=== PATIENT | male | born 1940 | race Caucasian/White ===

== ENCOUNTER 2023-01-31 08:06 | Outpatient (RCR) | payer MEDICARE, OTHER, SELFPAY | END 2023-03-28 10:14 | disposition home or self-care (01) | LOC: HO.WCC 08:06 | PROVIDERS: Visit Provider Physician Assistant | DX: Z09 Encounter for follow-up examination after completed treatment for conditions other than malignant neoplasm (principal); I87.302 Chronic venous hypertension (idiopathic) without complications of left lower extremity; G60.8 Other hereditary and idiopathic neuropathies; I73.9 Peripheral vascular disease, unspecified; R73.03 Prediabetes; F17.210 Nicotine dependence, cigarettes, uncomplicated; J44.9 Chronic obstructive pulmonary disease, unspecified; Z87.2 Personal history of diseases of the skin and subcutaneous tissue | CPT/HCPCS: 11042; 97597; 99212; 99213 ==

== ENCOUNTER 2023-12-19 07:59 | Emergency (ER) | payer MEDICARE, OTHER, SELFPAY ==
--- NOTE | ~2023-12-19 | CT_ITS ---
EXAMINATION: CT ABDOMEN AND PELVIS WITHOUT CONTRAST CLINICAL INFORMATION: Left lower quadrant pain COMPARISON: None available. TECHNIQUE: Multidetector volumetric imaging was performed from the superior aspect of the liver through the pubic symphysis. Sagittal and coronal reformatted images were obtained on the technologist's workstation. This CT examination was performed using dose optimization techniques as appropriate, variously including the following: *Automated exposure control *Adjustment of mA and/or kV according to patient size (this includes techniques or standardized protocols for targeted exams where dose is matched to indication/reason for exam; i.e. extremities or head) *Use of iterative reconstruction technique DLP: 989 mGy-cm FINDINGS: LUNG BASES: Bibasilar atelectasis. No pneumothorax. No large pleural effusion. LIVER, GALLBLADDER, AND BILIARY TREE: The liver is normal in size, shape, and attenuation. No focal hepatic lesion or biliary ductal dilatation is present. The gallbladder is unremarkable with no evidence of radiopaque gallstones, gallbladder wall thickening, or obvious pericholecystic inflammatory changes. PANCREAS: Mild atrophy of the visualized pancreas. SPLEEN: Unremarkable. ADRENAL GLANDS: Unremarkable. KIDNEYS AND URETERS: Mild left-sided hydroureteronephrosis secondary to a 6 mm calculus at the level of the left mid ureter with periureteral and perinephric stranding. Additional calculi noted in the left kidney measuring up to 1.0 cm. Right-sided nephrolithiasis measuring up to 7 mm without hydronephrosis. 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 GASTROINTESTINAL TRACT: Small hiatal hernia. Slight colonic diverticulosis without acute diverticulitis. The small and large bowel are unremarkable. The appendix is unremarkable. ABDOMINAL WALL: Diastases rectae with laxity of the anterior abdominal wall. LYMPH NODES: No enlarged lymph nodes per size criteria. VASCULAR: Abdominal aorta is nonaneurysmal. PELVIC VISCERA: Prostate measures 4.1 cm with coarse calcifications within its body. Osteopenia. Suggestion of superior endplate compression deformity of L4, chronicity indeterminate. Correlation with physical exam. Multilevel degenerative changes of the thoracolumbar and lumbosacral spine. Degenerative arthropathy of the bilateral femoral acetabular and sacroiliac joints. Sclerotic focus along the right pubic symphysis nonspecific though potentially representing a bone island. OSSEOUS STRUCTURES: Unremarkable. CT/CT abdomen pelvis wo IV con IMPRESSION: 1. Mild left-sided hydroureteronephrosis secondary to a 6 mm calculus at the level of the left mid ureter with periureteral and perinephric stranding. Additional calculi noted in the left kidney measuring up to 1.0 cm. Right-sided nephrolithiasis measuring up to 7 mm without hydronephrosis. 2. 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 3. Small hiatal hernia. Slight colonic diverticulosis without acute diverticulitis. 4. Osteopenia. Suggestion of superior endplate compression deformity of L4, chronicity indeterminate. Correlation with physical exam.
[2023-12-19 08:05] VITALS: BP 95/74; PULSE 78; RESP 16; TEMP 37; O2SAT 98; BMI 37.6
--- NOTE | 2023-12-19 08:08 | ECG_ITS ---
Test Reason : shortness of breath Blood Pressure : / mmHG Vent. Rate : 086 BPM Atrial Rate : 000 BPM P-R Int : 000 ms QRS Dur : 128 ms QT Int : 396 ms P-R-T Axes : 000 -54 064 degrees QTc Int : 473 ms Atrial fibrillation Right bundle branch block Left anterior fascicular block Bifascicular block Abnormal ECG When compared with ECG of 13-FEB-2011 05:24, Atrial fibrillation has replaced Sinus rhythm Vent. rate has increased BY 40 BPM RBBB present now Referred By: Generic ED Physician Electronically Signed By:Deni Lagunas
[2023-12-19 08:31] LABS: MANUAL DIFF FLAG NO
[2023-12-19 08:33] LABS: Appearance Urine Clear; Color Urine Yellow; Glucose Urine UA Negative (Negative); Leukocyte Esterase Urine Negative (Negative); Nitrite Urine Negative (Negative); Specific Gravity - Urine 1.025 (1.005-1.025); UMIC TRIGGER UACC YES; Urine Blood Moderate (2+) (Negative); Urine Ketones 15 mg/dL (Negative); Urine Protein Negative (Neg-Trace)
[2023-12-19 08:37] LABS: Basophils Percent Auto 0.3 % (0-2); Eosinophils Percent Auto 0.1 % (0-4); Hematocrit 50.7 % (42.0-52.0); Hemoglobin 17.4 g/dl (14.0-18.0); Imm Gran Abs Auto 0.06 X10*3/uL (0.00-0.03); Imm Gran Pct Auto 0.4 % (0.0-0.4); Lymphocytes Absolute Auto 1.4 X10*3/uL (1.2-4.9); Mean Corpuscular HGB Conc 34.3 g/dl (31.0-36.0); Mean Corpuscular Hemoglobin 30.1 pg (27.0-33.0); Mean Corpuscular Volume 87.6 fL (80.0-98.0); Mean Platelet Volume 10.8 fL (9.4-12.4); Monocytes Absolute Auto 1.3 X10*3/uL (0.1-1.2); Monocytes Percent Auto 8.3 % (2-11); Neutrophils Percent Auto 81.9 % (45-73); Platelet Count 180 X10*3/uL (160-400); Red Blood Count 5.79 X10*6/uL (4.60-5.80); Red Cell Distribution Width 13.4 % (11.0-16.0); White Blood Count 15.9 X10*3/uL (4.8-10.8)
[2023-12-19 08:38] LABS: Bacteria Urine None Seen (None Seen); Hyaline Casts Urine 0-2 /LPF (0-2); RBC Urine >20 /HPF (0-2); Squamous Epithelial Cell Urine 0-2 /HPF (0-2); WBC Urine 0-5 /HPF (0-5)
--- NOTE | 2023-12-19 08:49 | PC.NURSE ---
Patient takes eliquis for Afib.
[2023-12-19 08:54] LABS: Alanine Aminotransferase 21 U/L (0-40); Albumin Level 4.2 g/dL (3.5-5.0); Alkaline Phosphatase 95 U/L (39-117); Anion Gap 13 (12-20); Aspartate Amino Transferase 27 U/L (5-37); Bilirubin Direct 0.5 mg/dL (0.0-0.5); Bilirubin Total 1.6 mg/dL (0.0-1.0); Blood Urea Nitrogen 19 mg/dL (9-16); Calcium 9.6 mg/dL (8.4-10.2); Carbon Dioxide 27 mmol/L (22-29); Chloride 102 mmol/L (96-108); Creatinine Clr Calc Pharmacy 60.4; Estimated Glomerular Filt Rate 51; Glucose Random 113 mg/dL (60-115); Lipase 14 U/L (8-78); Potassium 4.5 mmol/L (3.3-5.1); Sodium 137 mmol/L (135-145); Total Protein 7.3 g/dL (6.5-8.0)
--- NOTE | 2023-12-19 09:49 | ED.ABDPAIN ---
HPI - Abdominal Pain General Chief Complaint: Abdominal Pain Stated Complaint: flank/groin pain Time Seen by Provider: 12/19/23 09:49 Source: patient and family ( ) Mode of arrival: ambulatory Limitations: no limitations History of Present Illness ED Provider: Too BENNETT HPI narrative: 83 year old male with a PMHx of a-fib (on Eliquis), sleep apnea, and peripheral neuropathy presents to the ER with his at the beside due to left flank pain that radiates to LLQ abdomen that began yesterday morning. The patient states that the pain is constant however, has improved in severity; 7/10 pain. Unable to sleep due to pain. Associated dry heeves but denies vomiting, fever, chest pain and palpitations, diarrhea, changes in bowel habits, headache, vision changes, dizziness, weakness. No A/C trauma Related Data Previous Rx's ?Medication ?Instructions ?Recorded acetaminophen 325 mg capsule 325 mg PO Q4H PRN pain #30 caps 12/19/23 (Tylenol) cefuroxime axetil 250 mg tablet 250 mg PO BID 7 days #14 tabs 12/19/23 morphine 15 mg immediate release 15 mg PO Q6H PRN pain 5 days #10 12/19/23 tablet tabs prednisone 20 mg tablet 20 mg PO DAILY 4 days #4 tabs 12/19/23 tamsulosin 0.4 mg capsule (Flomax) 0.4 mg PO DAILY 2 weeks #14 caps 12/19/23 Allergies Allergy/AdvReac Type Severity Reaction Status Date / Time No Known Allergies Allergy Verified 12/19/23 08:08 Review of Systems Review of Systems Yes all other systems are reviewed and are negative COUNTS INCLUDE 234 BEDS AT THE [facility] Past Medical History Attestation statement: The following information was validated with the patient. Source: old records reviewed and nursing notes reviewed Social History Social History Alcohol intake: current Smoked in Last 30 Days: No Use of substances other than those prescribed or required for medical reasons: No Advance Directives: No Advance Directives Information Provided: Yes Physical Exam ED Vital Signs: Vital Signs - 24 hr 12/19/23 08:05 12/19/23 12:41 Temperature 98.6 F 98.0 F Pulse Rate 78 81 Respiratory Rate 16 18 Blood Pressure 95/74 136/71 Pulse Oximetry 98 98 Oxygen Delivery Method Room Air Room Air BMI result Body Mass Index 37.6 vss Appearance: Alert.? Oriented X3.? No acute distress.? Head: Normocephalic, atraumatic, no step-offs or deformities Eyes: Pupils equal, round and reactive to light.? CVS: Normal heart rate and rhythm.? Pulses normal.? Respiratory: No respiratory distress.? Breath sounds normal.? Abdomen: Soft and nontender Skin: Skin warm and dry.? Normal skin color.? Normal skin turgor.? Extremities: No lower extremity edema.? No calf ttp. 5/5 strength to bilateral upper and lower extremities Back: No midline tenderness, no C-spine tenderness, full range of motion, + CVA tenderness left sided Neuro: Oriented X 3.? No motor deficit.? No sensory deficit. CN 2-12 intact Course Reevaluation(s) Reevaluation #1: CBC with leukocytosis 15.9, slight shift. This is likely reactive unlikely from infection. Chemistry no acute findings requiring intervention. BUN and creatinine slightly elevated. Will hydrate patient with normal saline. UA without infection. Time: 09:00 Reevaluation #2: CT abdomen and pelvis with mild left-sided hydroureter nephrosis secondary to 6 mm calculus at the level of the left mid ureter with periureteral and perinephric stranding. Right-sided nephrolithiasis measuring up to 7 mm without hydronephrosis. Multiple urinary bladder diverticula are noted largest along the left posterior aspect measuring 1.9 cm. Small hiatal hernia. Osteopenia. Reached out to urology for input. Time: 12:17 Reevaluation #3: Discuss this case with the Urology who looked at patient's case states patient can be discharged home on Flomax if he is comfortable. Will have him follow-up in the office ronal preferably within the next day. Time: 14:08 Additional Reevaluation(s): Patient tolerating p.o.. Pain is well controlled. 09/19 will follow up with GI outpaitent. Medical Decision Making Medical Decision Making [facility] Narrative: 1027 83 yo m presents w/ llq pain w/ radiation to flank since last night PE - left sided cva tenderness. Patient uncomfortable appearing. History and physical exam concerning for diverticulitis versus kidney stone versus obstructive uropathy versus UTI. Unlikely pyelonephritis, acute abdomen, pancreatitis, hepatitis, cholecystitis, appendicitis, obstruction. Will rule out metabolic derangements. Plan at this time labs, urine, imaging Differential Diagnosis Differential Diagnoses: The differential diagnosis associated with the presentation includes History and physical exam concerning for diverticulitis versus kidney stone versus obstructive uropathy versus UTI. Unlikely pyelonephritis, acute abdomen, pancreatitis, hepatitis, cholecystitis, appendicitis, obstruction. Will rule out metabolic derangements. Admission/Observation Consideration of admission/observation: Escalation of care including admission/observation considered Possible Lab Data MDM Lab Attestation statement: I reviewed the patient's lab results. 12/19/23 08:26 12/19/23 08:26 Labs: Lab Results 12/19/23 12/19/23 Range/Units 08:22 08:26 WBC 15.9 H (4.8-10.8) X10*3/uL RBC 5.79 (4.60-5.80) X10*6/uL Hgb 17.4 (14.0-18.0) g/dl Hct 50.7 (42.0-52.0) % MCV 87.6 (80.0-98.0) fL MCH 30.1 (27.0-33.0) pg MCHC 34.3 (31.0-36.0) g/dl RDW 13.4 (11.0-16.0) % Plt Count 180 (160-400) X10*3/uL MPV 10.8 (9.4-12.4) fL Immature Gran % (Auto) 0.4 (0.0-0.4) % Neut % (Auto) 81.9 H (45-73) % Lymph % (Auto) 9.0 L (20-40) % [place] % (Auto) 8.3 (2-11) % Eos % (Auto) 0.1 (0-4) % Baso % (Auto) 0.3 (0-2) % Lymph # (Auto) 1.4 (1.2-4.9) X10*3/uL [place] # (Auto) 1.3 H (0.1-1.2) X10*3/uL Eos # (Auto) 0.0 (0.0-0.4) X10*3/uL Baso # (Auto) 0.0 (0.0-0.2) X10*3/uL Abs Immat Gran (auto) 0.06 H (0.00-0.03) X10*3/uL Absolute Neuts (auto) 13.0 H (2.0-8.3) x10*3/uL Absolute Nucleated RBC 0.000 (0.0-0.012) X10*3/uL Nucleated RBC % (auto) 0.0 (0.0-0.2) /100WBC Sodium 137 (135-145) mmol/L Potassium 4.5 (3.3-5.1) mmol/L Chloride 102 (96-108) mmol/L Carbon Dioxide 27 (22-29) mmol/L Anion Gap 13 (12-20) BUN 19 H (9-16) mg/dL Creatinine 1.35 (0.5-1.4) mg/dL Estim Creat Clear Calc 60.4 Estimated GFR 51 Random Glucose 113 (60-115) mg/dL Calcium 9.6 (8.4-10.2) mg/dL Total Bilirubin 1.6 H (0.0-1.0) mg/dL Direct Bilirubin 0.5 (0.0-0.5) mg/dL AST 27 (5-37) U/L ALT 21 (0-40) U/L Alkaline Phosphatase 95 (39-117) U/L Total Protein 7.3 (6.5-8.0) g/dL Albumin 4.2 (3.5-5.0) g/dL Lipase 14 (8-78) U/L Urine Color Yellow Urine Appearance Clear Urine pH 6.0 (5.0-9.0) Ur Specific [place] 1.025 (1.005-1.025) Urine Protein Negative (Neg-Trace) mg/dL Urine Glucose (UA) Negative (Negative) mg/dL Urine Ketones 15 (Negative) mg/dL Urine Blood Moderate (2+) H (Negative) Urine Nitrite Negative (Negative) Ur Leukocyte Esterase Negative (Negative) Urine RBC >20 H (0-2) /HPF Urine WBC 0-5 (0-5) /HPF Ur Squamous Epith Cells 0-2 (0-2) /HPF Urine Bacteria None Seen (None Seen) Hyaline Casts 0-2 (0-2) /LPF Independent Interpretation I performed an independent interpretation of an: CT Scan Radiology Impression Discussion of test interpretation with radiology: I have reviewed the radiologist's reading. Chronic Conditions Patient?s care impacted by: Other (afib, elvis on cpap, obesity) Medications Administered Discontinued Medications Generic Name Dose Route Start Last Admin Trade Name Freq PRN Reason Stop Dose Admin Acetaminophen 650 mg 12/19/23 13:39 12/19/23 15:02 Acetaminophen 325 Mg Tablet PO 12/19/23 13:40 650 mg ONCE ONE Administration Cefuroxime Axetil 250 mg 12/19/23 14:09 12/19/23 15:01 Cefuroxime Axetil 250 Mg Tablet PO 12/19/23 14:10 250 mg ONCE ONE Administration Sodium Chloride 1,000 mls @ 999 mls/hr 12/19/23 10:00 12/19/23 13:29 Ns IV 12/19/23 11:00 Infused .Q1H1M ZABRINA Infusion Sodium Chloride 1,000 mls @ 999 mls/hr 12/19/23 10:15 12/19/23 13:29 Ns IV 12/19/23 11:15 Infused .Q1H1M ZABRINA Infusion Sodium Chloride 1,000 mls @ 999 mls/hr 12/19/23 12:45 12/19/23 13:13 Ns IV 12/19/23 13:45 999 mls/hr .Q1H1M ZABRINA Administration Morphine Sulfate 4 mg 12/19/23 10:08 12/19/23 15:08 Morphine Sulfate 4 Mg/Ml Cartridge IVPUSH 12/19/23 10:09 Not Given ONCE ONE Protocol Prednisone 20 mg 12/19/23 12:35 12/19/23 13:12 Prednisone 20 Mg Tablet PO 12/19/23 12:36 20 mg ONCE ONE Administration Tamsulosin HCl 0.4 mg 12/19/23 12:35 12/19/23 13:12 Tamsulosin Hcl 0.4 Mg Capsule PO 12/19/23 12:36 0.4 mg ONCE ONE Administration Critical Care Time Critical Care Time Critical Care Time: Yes Total Critical Care Time: 35 Attestation: I attest to this time spent taking care of the patient, obtaining history, physical, reviewing labs, imaging, speaking to my attending, specialist or hospitalist. Discharge Plan Discharge Clinical Impression: Calculus of kidney Patient Disposition: Home, Self-Care Instructions: Kidney Stones (ED) Additional Instructions: Take your medications as prescribed. If you were prescribed antibiotics today, it is important that you take your medication to their entirety, do not skip any doses, do not finish them early. Follow-up with your primary care provider this week. Return to the emergency department with new or worsening symptoms. Such as fevers, chills, chest pain, shortness of breath, nausea, vomiting, dizziness, headache, vision changes, lethargy In case of emergency call 911 Please follow-up with urology called today to schedule an appointment. A narcotic has been sent to your pharmacy please take this as prescribed. Do not take more than the prescribed dose. Narcotic medications can cause addiction. Please do not mix them with alcohol. Do not take them while driving or operating machinery. Do not take them with any other narcotics. Do not share them with friends or family. They can cause constipation. Take them only for severe pain. CT/CT abdomen pelvis wo IV con IMPRESSION: 1. Mild left-sided hydroureteronephrosis secondary to a 6 mm calculus at the level of the left mid ureter with periureteral and perinephric stranding. Additional calculi noted in the left kidney measuring up to 1.0 cm. Right-sided nephrolithiasis measuring up to 7 mm without hydronephrosis. 2. 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 3. Small hiatal hernia. Slight colonic diverticulosis without acute diverticulitis. 4. Osteopenia. Suggestion of superior endplate compression deformity of L4, chronicity indeterminate. Correlation with physical exam. Prescriptions: New cefuroxime axetil 250 mg tablet 250 mg PO BID 7 Days Qty: 14 0RF tamsulosin [Flomax] 0.4 mg capsule 0.4 mg PO DAILY 14 Days Qty: 14 0RF morphine 15 mg tablet 15 mg PO Q6H PRN (Reason: pain) 5 Days Qty: 10 0RF Rx Instructions: Partial Fill upon patient request. prednisone 20 mg tablet 20 mg PO DAILY 4 Days Qty: 4 0RF acetaminophen [Tylenol] 325 mg capsule 325 mg PO Q4H PRN (Reason: pain) Qty: 30 0RF Referrals: [facility] [Provider Group] - 1 day Shaggy Carmona PA [Primary Care Provider] - 2 days Stand Alone Forms: Work/School Release Print Language: Luxembourgish
[2023-12-19] MEDS: 0.9 % Sodium Chloride 1,000 ML 999 ML IV ×3 (10:14→13:13)
--- NOTE | 2023-12-19 10:25 | PC.NURSE ---
Patient denies any pain. Will ring if he does have any pain and I will give him the morphine.
[2023-12-19 12:41] VITALS: BP 136/71; PULSE 81; RESP 18; TEMP 36.7; O2SAT 98
[2023-12-19] MEDS: predniSONE 20 MG TABLET PO (13:12)
[2023-12-19] MEDS: Tamsulosin HCL 0.4 MG CAPSULE PO (13:12)
[2023-12-19] MEDS: cefuroxime axetiL 250 MG TABLET PO (15:01)
[2023-12-19] MEDS: Acetaminophen 325 MG TABLET 650 MG PO (15:02)
[2023-12-19 15:34] VITALS: BP 140/81; PULSE 81; RESP 18; TEMP 36.9; O2SAT 96
== END 2023-12-19 15:35 | disposition home or self-care (01) ==
PROVIDERS: Emergency Provider Emergency Medicine; PCP Physician Assistant Medical
DX: N20.0 Calculus of kidney (principal); R06.02 Shortness of breath; R10.32 Left lower quadrant pain; I48.91 Unspecified atrial fibrillation; K44.9 Diaphragmatic hernia without obstruction or gangrene; M85.80 Other specified disorders of bone density and structure, unspecified site; Z79.01 Long term (current) use of anticoagulants
CPT/HCPCS: 36415; 51798; 74176; 80048; 80076; 81001; 83690; 85025; 93005; 96360; 96361; 99285

== ENCOUNTER → 2023-12-19 08:08 | Outpatient (BNV) | payer MEDICARE, OTHER, SELFPAY | PROVIDERS: Emergency Provider Emergency Medicine; PCP Physician Assistant Medical; Visit Provider Internal Medicine Cardiovascular Disease | DX: R94.31 Abnormal electrocardiogram [ECG] [EKG] (principal) | CPT/HCPCS: 93010 ==

== ENCOUNTER 2023-12-22 10:19 | Outpatient (AMB) | payer MEDICARE, OTHER, SELFPAY ==
--- NOTE | 2023-12-22 10:42 | MHC.OFFVIS ---
Intake Visit Reasons: kidney stones Intake Note: Patient is present for kidney stones Urology Medication:tamsulosin Antibiotic Allergy:none Blood Thinner:none Glassblower Required: No Allergies No Known Allergies Allergy (Verified 01/18/24 13:25) Medication List - Last Reconciled 12/22/23 by Katina Arteaga MD acetaminophen (Tylenol) 325 mg PO Q4H PRN cefuroxime axetil 250 mg PO BID 7 days morphine 15 mg PO Q6H PRN 5 days prednisone 20 mg PO DAILY 4 days tamsulosin (Flomax) 0.4 mg PO DAILY 2 weeks HPI Comments Details: Brayan was in the emergency room due to left flank pain. Comorbidity-anticoagulation on Eliquis CT imaging bilateral kidney stones left hydronephrosis due to obstructing left ureteral stone mid ureter 6 mm. Also bladder wall thickening with diverticuli The patient was sent from the emergency room with antibiotics, Flomax, prednisone On exam no CVA tenderness elicited. Follow-up renal/bladder ultrasound. Continue tamsulosin due to enlarged prostate PFSH Social History Alcohol intake: current Review of Systems Const All systems reviewed & are unremarkable except as noted in HPI and below Reports no additional complaints Eyes Reports no additional complaints ENT Reports no additional complaints Card Reports no additional complaints Resp Reports no additional complaints GI Reports no additional complaints Reports as per HPI Musc Reports no additional complaints Skin/Breast Reports system reviewed and no additional complaints, except as documented Neuro Reports no additional complaints Psych Reports no additional complaints Endo Reports no additional complaints Anoop/Lymph Reports no additional complaints Aller/Immun Reports no additional complaints Physical Exam Const General: healthy appearing, no acute distress and well developed Nutritional Appearance: overweight Orientation/consciousness: patient oriented x3 HEENT Head: Yes normocephalic and Yes atraumatic Eyes Conjunctivae: conjunctivae normal Neck Neck: Yes normal visual inspection Chest Chest palpation & inspection: normal inspection of the chest Resp Effort & Inspection: normal respiratory effort Cardio Rate: regular rate GI Inspection: Yes normal to inspection Palpation (GI): Soft to palpation General: Yes no CVA tenderness Back/Spine/Pelvis Back: no CVA tenderness Skin General skin exam: no rashes or lesions noted Neuro General: patient oriented x3 Psych Appearance: grossly normal Affect: normal affect Results AMB Urinalysis, Automated UA Leukoctes 0 Hansa/uL Last Edit by DUNIA Andersen on 12/22/23 10:53 UA Nitrite Negative Last Edit [facility] on 12/22/23 10:53 UA Urobilinogen 0.2 mg/dL Last Edit by DUNIA Andersen on 12/22/23 10:53 UA Protein 0 mg/dL Last Edit by Awilda Duran [facility] on 12/22/23 10:53 UA pH 6.0 Last Edit by Awilda Duran [facility] on 12/22/23 10:53 UA Blood 200 Talha/uL Last Edit by Awilda Duran [facility] on 12/22/23 10:53 UA Specific [place] 1.015 Last Edit by Awilda Duran [facility] on 12/22/23 10:53 UA Ketone Negative Last Edit by Awilda Duran [facility] on 12/22/23 10:53 UA Bilirubin 0 mg/dL Last Edit by Awilda Duran [facility] on 12/22/23 10:53 UA Glucose 0 mg/dL Last Edit by Awilda Duran [facility] on 12/22/23 10:53 Results Reviewed Results Reviewed: Laboratory Last Values Urine pH (Auto) 6.0 12/22/23 10:53 Specific [place] (Auto) 1.015 12/22/23 10:53 Urine Protein (Auto) 0 mg/dL 12/22/23 10:53 Glucose (UA)(Auto) 0 mg/dL 12/22/23 10:53 Urine Ketones (Auto) Negative 12/22/23 10:53 Urine Blood (Auto) 200 Talha/uL 12/22/23 10:53 Urine Nitrite (Auto) Negative 12/22/23 10:53 Urine Bilirubin (Auto) 0 mg/dL 12/22/23 10:53 Urine Urobilinogen (Auto) 0.2 mg/dL 12/22/23 10:53 Leukocyte Esterase (Auto) 0 Hansa/uL 12/22/23 10:53 Date of Service: 12/19/23 CT ABDOMEN AND PELVIS WITHOUT CONTRAST CLINICAL INFORMATION: Left lower quadrant pain COMPARISON: None available. TECHNIQUE: Multidetector volumetric imaging was performed from the superior aspect of the liver through the pubic symphysis. Sagittal and coronal reformatted images were obtained on the technologist's workstation. This CT examination was performed using dose optimization techniques as appropriate, variously including the following: *Automated exposure control *Adjustment of mA and/or kV according to patient size (this includes techniques or standardized protocols for targeted exams where dose is matched to indication/reason for exam; i.e. extremities or head) *Use of iterative reconstruction technique DLP: 989 mGy-cm FINDINGS: LUNG BASES: Bibasilar atelectasis. No pneumothorax. No large pleural effusion. LIVER, GALLBLADDER, AND BILIARY TREE: The liver is normal in size, shape, and attenuation. No focal hepatic lesion or biliary ductal dilatation is present. The gallbladder is unremarkable with no evidence of radiopaque gallstones, gallbladder wall thickening, or obvious pericholecystic inflammatory changes. PANCREAS: Mild atrophy of the visualized pancreas. SPLEEN: Unremarkable. ADRENAL GLANDS: Unremarkable. KIDNEYS AND URETERS: Mild left-sided hydroureteronephrosis secondary to a 6 mm calculus at the level of the left mid ureter with periureteral and perinephric stranding. Additional calculi noted in the left kidney measuring up to 1.0 cm. Right-sided nephrolithiasis measuring up to 7 mm without hydronephrosis. 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 GASTROINTESTINAL TRACT: Small hiatal hernia. Slight colonic diverticulosis without acute diverticulitis. The small and large bowel are unremarkable. The appendix is unremarkable. ABDOMINAL WALL: Diastases rectae with laxity of the anterior abdominal wall. LYMPH NODES: No enlarged lymph nodes per size criteria. VASCULAR: Abdominal aorta is nonaneurysmal. PELVIC VISCERA: Prostate measures 4.1 cm with coarse calcifications within its body. Osteopenia. Suggestion of superior endplate compression deformity of L4, chronicity indeterminate. Correlation with physical exam. Multilevel degenerative changes of the thoracolumbar and lumbosacral spine. Degenerative arthropathy of the bilateral femoral acetabular and sacroiliac joints. Sclerotic focus along the right pubic symphysis nonspecific though potentially representing a bone island. OSSEOUS STRUCTURES: Unremarkable. IMPRESSION: 1. Mild left-sided hydroureteronephrosis secondary to a 6 mm calculus at the level of the left mid ureter with periureteral and perinephric stranding. Additional calculi noted in the left kidney measuring up to 1.0 cm. Right-sided nephrolithiasis measuring up to 7 mm without hydronephrosis. 2. 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 3. Small hiatal hernia. Slight colonic diverticulosis without acute diverticulitis. 4. Osteopenia. Suggestion of superior endplate compression deformity of L4, chronicity indeterminate. Correlation with physical exam. Assessment & Plan Assessment & Plan (1) Hydronephrosis, left: Code(s): N13.30 - Unspecified hydronephrosis Category: Medical (2) Bilateral kidney stones: Code(s): N20.0 - Calculus of kidney Category: Medical (3) Left ureteral stone: Code(s): N20.1 - Calculus of ureter Category: Medical (4) BPH loc w urin obs/LUTS: Code(s): N40.1 - Benign prostatic hyperplasia with lower urinary tract symptoms Category: Medical Plan Bilateral kidney stones Left ureteral stone. Patient thinks he passed the stone currently asymptomatic. Continue tamsulosin, increase fluids Renal ultrasound in 2 weeks Discussed 24 hour urine to be done in the future Orders: Orders AMB Urinalysis Automated 12/22/23 Z13.9 - Encounter for screening, unspecified US retroperitoneal comp 12/27/23 N13.30 - Unspecified hydronephrosis, N20.0 - Calculus of kidney, N20.1 - Calculus of ureter Medications: Refilled tamsulosin (Flomax) 0.4 mg PO DAILY 30 caps 5RF 2 weeks Patient Instructions: The patient had an opportunity to ask questions regarding treatment plan. The patient expressed understanding and agreement with the above treatment plan. The patient is aware they should contact our office by phone for worsening of their current condition or the appearance of new symptoms. Compliance is encouraged with any medications and followup testing that is ordered. It is a privilege to be allowed the opportunity to participate in the urologic care of your patient. If you have any questions or concerns regarding treatment for the above conditions please do not hesitate to contact me. The office telephone contact is [phone]. This note is constructed in part using voice recognition software. While every effort has been made to ensure accuracy posting clerk errors may have been included. Yours sincerely, Katina Arteaga MD Coding Level of Care Code New Pt Level 4 (25747) Diagnoses Hydronephrosis, left N13.30 Bilateral kidney stones N20.0 Left ureteral stone N20.1 BPH loc w urin obs/LUTS N40.1
== END 2023-12-22 11:36 | disposition home or self-care (01) ==
PROVIDERS: PCP Physician Assistant Medical; Visit Provider Urology
DX: N13.30 Unspecified hydronephrosis (principal); N20.0 Calculus of kidney; N20.1 Calculus of ureter; N40.1 Benign prostatic hyperplasia with lower urinary tract symptoms
CPT/HCPCS: 99204

== ENCOUNTER → 2023-12-22 10:19 | Outpatient (BNVA) | payer MEDICARE, OTHER, SELFPAY | PROVIDERS: PCP Physician Assistant Medical; Visit Provider Urology | DX: N40.1 Benign prostatic hyperplasia with lower urinary tract symptoms (principal); N13.2 Hydronephrosis with renal and ureteral calculous obstruction; Z79.01 Long term (current) use of anticoagulants | CPT/HCPCS: 81003; 99202 ==

== ENCOUNTER 2023-12-27 13:03 | Outpatient (REF) | payer MEDICARE, OTHER, SELFPAY ==
--- NOTE | ~2023-12-27 | US_ITS ---
EXAMINATION: US RETROPERITONEAL COMPLETE (RENAL) CLINICAL INFORMATION: Hydronephrosis. COMPARISON: None available. TECHNIQUE: Real-time imaging of the kidneys and bladder. FINDINGS: RIGHT KIDNEY: 12.3 x 7.4 x 6.9 cm (SAG x AP x TRV). The kidney is normal in size, contour, and echogenicity. Renal cortical thickness is normal. No focal parenchymal solid lesions. No hydronephrosis. At the interpolar aspect, a 2.3 x 0.5 x 0.7 cm nonobstructing, shadowing calculus is seen. At the interpolar aspect, 2.2 cm, 3.0 cm and 2.6 cm benign, simple cysts are seen, which prior imaging follow-up. LEFT KIDNEY: 14.6 x 6.2 x 4.8 cm (SAG x AP x TRV). The kidney is normal in size, contour, and echogenicity. Renal cortical thickness is normal. No calculi or focal parenchymal lesions. There is moderate hydronephrosis. At the upper pole, 8.7 cm and 3.1 cm benign, simple cysts are seen. At the interpolar aspect, a 1.8 cm benign, simple cyst is seen. These require no imaging follow-up BLADDER: Well distended, without mass or calculus. A 3.7 cm posterior bladder diverticulum is noted. Bilateral ureteral jets are demonstrated. Prevoid bladder volume is 232 mL. Postvoid bladder volume is 206 mL. US/US retroperitoneal comp IMPRESSION: 1. There is a 2.3 cm nonobstructing right renal interpolar calculus. 2. There is moderate left hydronephrosis. 3. There is an increased postvoid residual volume. 4. A posterior bladder diverticulum is noted.
== END 2023-12-27 13:04 | disposition home or self-care (01) ==
LOC: HO.US 13:03
PROVIDERS: PCP Physician Assistant Medical; Visit Provider Urology
DX: N13.30 Unspecified hydronephrosis (principal); N20.0 Calculus of kidney; N20.1 Calculus of ureter
CPT/HCPCS: 76770

== ENCOUNTER 2024-01-18 12:58 | Outpatient (AMB) | payer MEDICARE, OTHER, SELFPAY ==
--- NOTE | 2024-01-18 13:21 | MHC.OFFVIS ---
Intake Visit Reasons: 4w/US(US 12/26) Intake Note: Patient is present for Ultrasound follow up Urology Med: Tamsulosin Antibiotic Allergy:None Blood Thinner: None Manager Shop Required: No Accompanied by: Spouse Allergies No Known Allergies Allergy (Verified 01/18/24 13:25) Medication List - Last Reconciled 01/18/24 by Katina Arteaga MD acetaminophen (Tylenol) 325 mg PO Q4H PRN tamsulosin (Flomax) 0.4 mg PO DAILY 2 weeks HPI Comments Details: 01/18/24--Brayan is being evaluated for kidney stones. Follow-up ultrasound notes persistent left hydronephrosis there are bilateral ureteral jets noted. He is currently asymptomatic. The patient would prefer to pass the stone and not have surgery. It is unclear if passed the stone and has hydro from edema or if the stone is still there. I have discussed that if the stone has remained in the same spot in the ureter that I recommend ureteroscopy. I will check an urgent CT stone protocol. 12/22/23--Brayan was in the emergency room due to left flank pain. Comorbidity-anticoagulation on Eliquis CT imaging bilateral kidney stones left hydronephrosis due to obstructing left ureteral stone mid ureter 6 mm. Also bladder wall thickening with diverticuli The patient was sent from the emergency room with antibiotics, Flomax, prednisone On exam no CVA tenderness elicited. Follow-up renal/bladder ultrasound. Continue tamsulosin due to enlarged prostate PFSH Social History Alcohol intake: current Review of Systems Const All systems reviewed & are unremarkable except as noted in HPI and below Reports no additional complaints Eyes Reports no additional complaints ENT Reports no additional complaints Card Reports no additional complaints Resp Reports no additional complaints GI Reports no additional complaints Reports as per HPI Musc Reports no additional complaints Skin/Breast Reports system reviewed and no additional complaints, except as documented Neuro Reports no additional complaints Psych Reports no additional complaints Endo Reports no additional complaints Anoop/Lymph Reports no additional complaints Aller/Immun Reports no additional complaints Results Reviewed Results Reviewed: Date of Service: 12/27/23 EXAMINATION: US RETROPERITONEAL COMPLETE (RENAL) CLINICAL INFORMATION: Hydronephrosis. COMPARISON: None available. TECHNIQUE: Real-time imaging of the kidneys and bladder. FINDINGS: RIGHT KIDNEY: 12.3 x 7.4 x 6.9 cm (SAG x AP x TRV). The kidney is normal in size, contour, and echogenicity. Renal cortical thickness is normal. No focal parenchymal solid lesions. No hydronephrosis. At the interpolar aspect, a 2.3 x 0.5 x 0.7 cm nonobstructing, shadowing calculus is seen. At the interpolar aspect, 2.2 cm, 3.0 cm and 2.6 cm benign, simple cysts are seen, which prior imaging follow-up. LEFT KIDNEY: 14.6 x 6.2 x 4.8 cm (SAG x AP x TRV). The kidney is normal in size, contour, and echogenicity. Renal cortical thickness is normal. No calculi or focal parenchymal lesions. There is moderate hydronephrosis. At the upper pole, 8.7 cm and 3.1 cm benign, simple cysts are seen. At the interpolar aspect, a 1.8 cm benign, simple cyst is seen. These require no imaging follow-up BLADDER: Well distended, without mass or calculus. A 3.7 cm posterior bladder diverticulum is noted. Bilateral ureteral jets are demonstrated. Prevoid bladder volume is 232 mL. Postvoid bladder volume is 206 mL. IMPRESSION: 1. There is a 2.3 cm nonobstructing right renal interpolar calculus. 2. There is moderate left hydronephrosis. 3. There is an increased postvoid residual volume. 4. A posterior bladder diverticulum is noted. Date of Service: 12/19/23 EXAMINATION: CT ABDOMEN AND PELVIS WITHOUT CONTRAST CLINICAL INFORMATION: Left lower quadrant pain COMPARISON: None available. TECHNIQUE: Multidetector volumetric imaging was performed from the superior aspect of the liver through the pubic symphysis. Sagittal and coronal reformatted images were obtained on the technologist's workstation. This CT examination was performed using dose optimization techniques as appropriate, variously including the following: *Automated exposure control *Adjustment of mA and/or kV according to patient size (this includes techniques or standardized protocols for targeted exams where dose is matched to indication/reason for exam; i.e. extremities or head) *Use of iterative reconstruction technique DLP: 989 mGy-cm FINDINGS: LUNG BASES: Bibasilar atelectasis. No pneumothorax. No large pleural effusion. LIVER, GALLBLADDER, AND BILIARY TREE: The liver is normal in size, shape, and attenuation. No focal hepatic lesion or biliary ductal dilatation is present. The gallbladder is unremarkable with no evidence of radiopaque gallstones, gallbladder wall thickening, or obvious pericholecystic inflammatory changes. PANCREAS: Mild atrophy of the visualized pancreas. SPLEEN: Unremarkable. ADRENAL GLANDS: Unremarkable. KIDNEYS AND URETERS: Mild left-sided hydroureteronephrosis secondary to a 6 mm calculus at the level of the left mid ureter with periureteral and perinephric stranding. Additional calculi noted in the left kidney measuring up to 1.0 cm. Right-sided nephrolithiasis measuring up to 7 mm without hydronephrosis. 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 GASTROINTESTINAL TRACT: Small hiatal hernia. Slight colonic diverticulosis without acute diverticulitis. The small and large bowel are unremarkable. The appendix is unremarkable. ABDOMINAL WALL: Diastases rectae with laxity of the anterior abdominal wall. LYMPH NODES: No enlarged lymph nodes per size criteria. VASCULAR: Abdominal aorta is nonaneurysmal. PELVIC VISCERA: Prostate measures 4.1 cm with coarse calcifications within its body. Osteopenia. Suggestion of superior endplate compression deformity of L4, chronicity indeterminate. Correlation with physical exam. Multilevel degenerative changes of the thoracolumbar and lumbosacral spine. Degenerative arthropathy of the bilateral femoral acetabular and sacroiliac joints. Sclerotic focus along the right pubic symphysis nonspecific though potentially representing a bone island. OSSEOUS STRUCTURES: Unremarkable. IMPRESSION: 1. Mild left-sided hydroureteronephrosis secondary to a 6 mm calculus at the level of the left mid ureter with periureteral and perinephric stranding. Additional calculi noted in the left kidney measuring up to 1.0 cm. Right-sided nephrolithiasis measuring up to 7 mm without hydronephrosis. 2. 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 3. Small hiatal hernia. Slight colonic diverticulosis without acute diverticulitis. 4. Osteopenia. Suggestion of superior endplate compression deformity of L4, chronicity indeterminate. Correlation with physical exam. Assessment & Plan Assessment & Plan (1) Bilateral kidney stones: Code(s): N20.0 - Calculus of kidney Category: Medical (2) Left ureteral stone: Code(s): N20.1 - Calculus of ureter Category: Medical Plan CT stone protocol, cont tamsulosin Orders: Orders AMB Urinalysis Automated Today Z13.9 - Encounter for screening, unspecified CT abdomen pelvis wo IV con Today N13.30 - Unspecified hydronephrosis, N20.0 - Calculus of kidney, N20.1 - Calculus of ureter Patient Instructions: The patient had an opportunity to ask questions regarding treatment plan. The patient expressed understanding and agreement with the above treatment plan. The patient is aware they should contact our office by phone for worsening of their current condition or the appearance of new symptoms. Compliance is encouraged with any medications and followup testing that is ordered. It is a privilege to be allowed the opportunity to participate in the urologic care of your patient. If you have any questions or concerns regarding treatment for the above conditions please do not hesitate to contact me. The office telephone contact is [phone]. This note is constructed in part using voice recognition software. While every effort has been made to ensure accuracy cable assembler and swager errors may have been included. Yours sincerely, Katina Arteaga MD Coding Level of Care Code Est Pt Level 3 (61197) Diagnoses Bilateral kidney stones N20.0 Left ureteral stone N20.1
== END 2024-01-18 14:07 | disposition home or self-care (01) ==
PROVIDERS: PCP Physician Assistant Medical; Visit Provider Urology
DX: N20.0 Calculus of kidney (principal); N20.1 Calculus of ureter
CPT/HCPCS: 99213

== ENCOUNTER → 2024-01-18 12:58 | Outpatient (BNVA) | payer MEDICARE, OTHER, SELFPAY | PROVIDERS: PCP Physician Assistant Medical; Visit Provider Urology | DX: N20.0 Calculus of kidney (principal); N20.1 Calculus of ureter | CPT/HCPCS: 99212 ==

== ENCOUNTER 2024-02-14 16:30 | Outpatient (REF) | payer MEDICARE, OTHER, SELFPAY ==
--- NOTE | ~2024-02-14 | CT_ITS ---
EXAMINATION: CT ABDOMEN AND PELVIS WITHOUT CONTRAST CLINICAL INFORMATION: Unspecified hydronephrosis COMPARISON: Renal ultrasound 12/27/2023, CT abdomen and pelvis 12/19/2023 TECHNIQUE: Multidetector volumetric imaging was performed from the superior aspect of the liver through the pubic symphysis. Sagittal and coronal reformatted images were obtained on the technologist's workstation. This CT examination was performed using dose optimization techniques as appropriate, variously including the following: *Automated exposure control *Adjustment of mA and/or kV according to patient size (this includes techniques or standardized protocols for targeted exams where dose is matched to indication/reason for exam; i.e. extremities or head) *Use of iterative reconstruction technique DLP: 840 mGy-cm FINDINGS: LUNG BASES: The visualized lung bases are unremarkable. LIVER, GALLBLADDER, AND BILIARY TREE: The liver is normal in size, shape, and attenuation. No focal hepatic lesion or biliary ductal dilatation is present. The gallbladder is unremarkable with no evidence of radiopaque gallstones, gallbladder wall thickening, or obvious pericholecystic inflammatory changes. PANCREAS: Unremarkable. SPLEEN: Unremarkable. ADRENAL GLANDS: Unremarkable. KIDNEYS AND URETERS: The kidneys are normal in size, shape, and attenuation. Multiple bilateral benign Bosniak class I renal cysts are again noted which require no additional imaging or follow-up. No solid renal masses are seen. The previously seen obstructing mid left ureteral calculus is no longer present and the left-sided hydronephrosis has resolved. There is persistent bilateral intrarenal nonobstructing nephrolithiasis with a single 4 mm calculus in the right lower pole and multiple calculi on the left the largest measuring about 7 mm in size. This stone measures 560 Hounsfield units and the 16 cm from the posterior axillary line. No hydronephrosis, hydroureter, or ureteral calculi seen. No perinephric stranding. BLADDER: 2 small bladder diverticula are seen. No bladder calculi. GASTROINTESTINAL TRACT: The small and large bowel are unremarkable aside from a few scattered colonic diverticula without diverticulitis. The appendix is unremarkable. ABDOMINAL WALL: No significant hernia is appreciated. LYMPH NODES: Normal. VASCULAR: Unremarkable. PELVIC VISCERA: The prostate and seminal vesicles are unremarkable. OSSEOUS STRUCTURES: Degenerative changes are present throughout the spine. CT/CT abdomen pelvis wo IV con IMPRESSION: 1. The previously seen obstructing left ureteral calculus is no longer present and the left-sided hydronephrosis has resolved. 2. Bilateral nonobstructing intrarenal calculi are present. 3. Other incidental findings as described above. Fleischner guidelines were followed. Electronically signed by: Travis wSan MD 02/15/2024 08:44 AM EDT RP
== END 2024-02-14 16:31 | disposition home or self-care (01) ==
LOC: HO.CT 16:30
PROVIDERS: PCP Physician Assistant Medical; Visit Provider Urology
DX: N13.30 Unspecified hydronephrosis (principal); N20.1 Calculus of ureter; N20.0 Calculus of kidney
CPT/HCPCS: 74176

== ENCOUNTER 2024-02-16 08:33 | Outpatient (AMB) | payer MEDICARE, OTHER, SELFPAY ==
--- NOTE | 2024-02-16 08:33 | MHC.OFFVIS ---
Intake Visit Reasons: 3w/CT(ct 12/18) Intake Note: Brayan is an 84 year old male who presents as a telehealth appt for a [address] follow up. Allergies No Known Allergies Allergy (Verified 02/16/24 08:33) Medication List - Last Reconciled 02/16/24 by Katina Arteaga MD acetaminophen (Tylenol) 325 mg PO Q4H PRN apixaban (Eliquis) 5 mg PO BID atorvastatin 10 mg PO DAILY diltiazem HCl CD 180 mg PO DAILY hydrochlorothiazide 12.5 mg PO DAILY levothyroxine 75 mcg PO DAILY omeprazole 20 mg PO DAILY tamsulosin (Flomax) 0.4 mg PO DAILY 2 weeks HPI Comments Details: 02/15/24--Brayan is followed for nephrolithiasis and BPH, and had left flank pain with left hydronephrosis due to an obstructing ureteral stone. The patient states he currently has no pain. I reviewed CTAP 02/14/24 --bilateral renal stones, left hydro resolved. Plan continue to monitor kidneys. Cont flomax. FU in 9 months. Review of chart: 01/18/24--Brayan is being evaluated for kidney stones. Follow-up ultrasound notes persistent left hydronephrosis there are bilateral ureteral jets noted. He is currently asymptomatic. The patient would prefer to pass the stone and not have surgery. It is unclear if passed the stone and has hydro from edema or if the stone is still there. I have discussed that if the stone has remained in the same spot in the ureter that I recommend ureteroscopy. I will check an urgent CT stone protocol. 12/22/23--Brayan was in the emergency room due to left flank pain. Comorbidity-anticoagulation on Eliquis CT imaging bilateral kidney stones left hydronephrosis due to obstructing left ureteral stone mid ureter 6 mm. Also bladder wall thickening with diverticuli The patient was sent from the emergency room with antibiotics, Flomax, prednisone On exam no CVA tenderness elicited. Follow-up renal/bladder ultrasound. Continue tamsulosin due to enlarged prostate PFSH Social History Alcohol intake: current Review of Systems Const All systems reviewed & are unremarkable except as noted in HPI and below Reports no additional complaints Eyes Reports no additional complaints ENT Reports no additional complaints Card Reports no additional complaints Resp Reports no additional complaints GI Reports no additional complaints Reports as per HPI Musc Reports no additional complaints Skin/Breast Reports system reviewed and no additional complaints, except as documented Neuro Reports no additional complaints Psych Reports no additional complaints Endo Reports no additional complaints Anoop/Lymph Reports no additional complaints Aller/Immun Reports no additional complaints Telehealth Telehealth Telehealth Platform: Telephone Location of provider rendering services: practice address Location of patient: address on file Patient Identification confirmed using: Name, : Yes Telehealth method: voice only Patient verbally consented to treatment: Yes Patient verbally consented to billing insurance company: Yes Patient informed of any privacy concerns related to visit: Yes Minutes spent on Phone/Video with Pt.: 15 Results Reviewed Results Reviewed: Date of Service: 02/14/24 CT ABDOMEN AND PELVIS WITHOUT CONTRAST CLINICAL INFORMATION: Unspecified hydronephrosis COMPARISON: Renal ultrasound 12/27/2023, CT abdomen and pelvis 12/19/2023 TECHNIQUE: Multidetector volumetric imaging was performed from the superior aspect of the liver through the pubic symphysis. Sagittal and coronal reformatted images were obtained on the technologist's workstation. This CT examination was performed using dose optimization techniques as appropriate, variously including the following: *Automated exposure control *Adjustment of mA and/or kV according to patient size (this includes techniques or standardized protocols for targeted exams where dose is matched to indication/reason for exam; i.e. extremities or head) *Use of iterative reconstruction technique DLP: 840 mGy-cm FINDINGS: LUNG BASES: The visualized lung bases are unremarkable. LIVER, GALLBLADDER, AND BILIARY TREE: The liver is normal in size, shape, and attenuation. No focal hepatic lesion or biliary ductal dilatation is present. The gallbladder is unremarkable with no evidence of radiopaque gallstones, gallbladder wall thickening, or obvious pericholecystic inflammatory changes. PANCREAS: Unremarkable. SPLEEN: Unremarkable. ADRENAL GLANDS: Unremarkable. KIDNEYS AND URETERS: The kidneys are normal in size, shape, and attenuation. Multiple bilateral benign Bosniak class I renal cysts are again noted which require no additional imaging or follow-up. No solid renal masses are seen. The previously seen obstructing mid left ureteral calculus is no longer present and the left-sided hydronephrosis has resolved. There is persistent bilateral intrarenal nonobstructing nephrolithiasis with a single 4 mm calculus in the right lower pole and multiple calculi on the left the largest measuring about 7 mm in size. This stone measures 560 Hounsfield units and the 16 cm from the posterior axillary line. No hydronephrosis, hydroureter, or ureteral calculi seen. No perinephric stranding. BLADDER: 2 small bladder diverticula are seen. No bladder calculi. GASTROINTESTINAL TRACT: The small and large bowel are unremarkable aside from a few scattered colonic diverticula without diverticulitis. The appendix is unremarkable. ABDOMINAL WALL: No significant hernia is appreciated. LYMPH NODES: Normal. VASCULAR: Unremarkable. PELVIC VISCERA: The prostate and seminal vesicles are unremarkable. OSSEOUS STRUCTURES: Degenerative changes are present throughout the spine. IMPRESSION: 1. The previously seen obstructing left ureteral calculus is no longer present and the left-sided hydronephrosis has resolved. 2. Bilateral nonobstructing intrarenal calculi are present. 3. Other incidental findings as described above. Date of Service: 12/27/23 EXAMINATION: US RETROPERITONEAL COMPLETE (RENAL) CLINICAL INFORMATION: Hydronephrosis. COMPARISON: None available. TECHNIQUE: Real-time imaging of the kidneys and bladder. FINDINGS: RIGHT KIDNEY: 12.3 x 7.4 x 6.9 cm (SAG x AP x TRV). The kidney is normal in size, contour, and echogenicity. Renal cortical thickness is normal. No focal parenchymal solid lesions. No hydronephrosis. At the interpolar aspect, a 2.3 x 0.5 x 0.7 cm nonobstructing, shadowing calculus is seen. At the interpolar aspect, 2.2 cm, 3.0 cm and 2.6 cm benign, simple cysts are seen, which prior imaging follow-up. LEFT KIDNEY: 14.6 x 6.2 x 4.8 cm (SAG x AP x TRV). The kidney is normal in size, contour, and echogenicity. Renal cortical thickness is normal. No calculi or focal parenchymal lesions. There is moderate hydronephrosis. At the upper pole, 8.7 cm and 3.1 cm benign, simple cysts are seen. At the interpolar aspect, a 1.8 cm benign, simple cyst is seen. These require no imaging follow-up BLADDER: Well distended, without mass or calculus. A 3.7 cm posterior bladder diverticulum is noted. Bilateral ureteral jets are demonstrated. Prevoid bladder volume is 232 mL. Postvoid bladder volume is 206 mL. IMPRESSION: 1. There is a 2.3 cm nonobstructing right renal interpolar calculus. 2. There is moderate left hydronephrosis. 3. There is an increased postvoid residual volume. 4. A posterior bladder diverticulum is noted. Date of Service: 12/19/23 EXAMINATION: CT ABDOMEN AND PELVIS WITHOUT CONTRAST CLINICAL INFORMATION: Left lower quadrant pain COMPARISON: None available. TECHNIQUE: Multidetector volumetric imaging was performed from the superior aspect of the liver through the pubic symphysis. Sagittal and coronal reformatted images were obtained on the technologist's workstation. This CT examination was performed using dose optimization techniques as appropriate, variously including the following: *Automated exposure control *Adjustment of mA and/or kV according to patient size (this includes techniques or standardized protocols for targeted exams where dose is matched to indication/reason for exam; i.e. extremities or head) *Use of iterative reconstruction technique DLP: 989 mGy-cm FINDINGS: LUNG BASES: Bibasilar atelectasis. No pneumothorax. No large pleural effusion. LIVER, GALLBLADDER, AND BILIARY TREE: The liver is normal in size, shape, and attenuation. No focal hepatic lesion or biliary ductal dilatation is present. The gallbladder is unremarkable with no evidence of radiopaque gallstones, gallbladder wall thickening, or obvious pericholecystic inflammatory changes. PANCREAS: Mild atrophy of the visualized pancreas. SPLEEN: Unremarkable. ADRENAL GLANDS: Unremarkable. KIDNEYS AND URETERS: Mild left-sided hydroureteronephrosis secondary to a 6 mm calculus at the level of the left mid ureter with periureteral and perinephric stranding. Additional calculi noted in the left kidney measuring up to 1.0 cm. Right-sided nephrolithiasis measuring up to 7 mm without hydronephrosis. 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 GASTROINTESTINAL TRACT: Small hiatal hernia. Slight colonic diverticulosis without acute diverticulitis. The small and large bowel are unremarkable. The appendix is unremarkable. ABDOMINAL WALL: Diastases rectae with laxity of the anterior abdominal wall. LYMPH NODES: No enlarged lymph nodes per size criteria. VASCULAR: Abdominal aorta is nonaneurysmal. PELVIC VISCERA: Prostate measures 4.1 cm with coarse calcifications within its body. Osteopenia. Suggestion of superior endplate compression deformity of L4, chronicity indeterminate. Correlation with physical exam. Multilevel degenerative changes of the thoracolumbar and lumbosacral spine. Degenerative arthropathy of the bilateral femoral acetabular and sacroiliac joints. Sclerotic focus along the right pubic symphysis nonspecific though potentially representing a bone island. OSSEOUS STRUCTURES: Unremarkable. IMPRESSION: 1. Mild left-sided hydroureteronephrosis secondary to a 6 mm calculus at the level of the left mid ureter with periureteral and perinephric stranding. Additional calculi noted in the left kidney measuring up to 1.0 cm. Right-sided nephrolithiasis measuring up to 7 mm without hydronephrosis. 2. 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 3. Small hiatal hernia. Slight colonic diverticulosis without acute diverticulitis. 4. Osteopenia. Suggestion of superior endplate compression deformity of L4, chronicity indeterminate. Correlation with physical exam. Assessment & Plan Assessment & Plan (1) Bilateral kidney stones: Code(s): N20.0 - Calculus of kidney Category: Medical (2) BPH loc w urin obs/LUTS: Code(s): N40.1 - Benign prostatic hyperplasia with lower urinary tract symptoms Category: Medical Plan bilateral renal stones, left hydro resolved. Plan continue to monitor kidneys. Cont flomax. FU in 9 months. Orders: Orders US renal BI 9 Months N20.0 - Calculus of kidney Patient Instructions: The patient had an opportunity to ask questions regarding treatment plan. The patient expressed understanding and agreement with the above treatment plan. The patient is aware they should contact our office by phone for worsening of their current condition or the appearance of new symptoms. Compliance is encouraged with any medications and followup testing that is ordered. It is a privilege to be allowed the opportunity to participate in the urologic care of your patient. If you have any questions or concerns regarding treatment for the above conditions please do not hesitate to contact me. The office telephone contact is [phone]. This note is constructed in part using voice recognition software. While every effort has been made to ensure accuracy director of resource development errors may have been included. Yours sincerely, Katina Arteaga MD Coding Level of Care Code Tele Est Pt Level 3 (70058) Diagnoses Bilateral kidney stones N20.0 BPH loc w urin obs/LUTS N40.1
== END 2024-02-16 08:55 | disposition home or self-care (01) ==
LOC: HO.HUSH 08:33
PROVIDERS: PCP Physician Assistant Medical; Visit Provider Urology
DX: N20.0 Calculus of kidney (principal); N40.1 Benign prostatic hyperplasia with lower urinary tract symptoms
CPT/HCPCS: 99442

== ENCOUNTER → 2024-02-16 08:33 | Outpatient (BNVA) | payer MEDICARE, OTHER, SELFPAY | PROVIDERS: PCP Physician Assistant Medical; Visit Provider Urology ==

== ENCOUNTER 2024-11-19 08:21 | Outpatient (REF) | payer MEDICARE, OTHER, SELFPAY ==
--- NOTE | ~2024-11-19 | US_ITS ---
EXAMINATION: US KIDNEY BILATERAL HISTORY: N20.0 - Calculus of kidney TECHNIQUE: Real-time grayscale ultrasound imaging of the kidneys was performed and images were reviewed. COMPARISON: Comparison is made with the prior examination dated 12/27/2023. FINDINGS: Right kidney: The right kidney measures 13.5 x 7.2 x 6.1 cm. Renal parenchymal echotexture and thickness are normal. There are multiple cysts, the largest of which is at the lower pole measuring 4.0 x 2.6 x 3.2 cm. There is a nonobstructing 11 x 7 x 4 mm calculus at the lower pole. There is no hydronephrosis. Left Kidney: The left kidney measures 13.7 x 5.9 x 5.6 cm. Renal parenchymal echotexture and thickness are normal. Multiple cysts are noted, the largest of which is at the upper pole measuring 8.7 x 7.2 x 8.2 cm cyst. Multiple nonobstructing calculi are noted including a 7 x 4 x 5 mm calculus in the interpolar region and 7 x 4 x 5 and 7 x 3 x 6 mm calculi at the lower pole. There is no hydronephrosis US/US renal BI IMPRESSION: Bilateral renal cysts as described. Bilateral nephrolithiasis. Electronically signed by: Darius Bone MD 11/19/2024 09:24 AM EDT
--- OUTSIDE RECORDS SUMMARY | 2024-11-19 08:32 | XMS_ITS | Patient Health Record ---
Author Organization [facility] Address [address] [place] [address] Care Team Providers Care Supervisor Cab Name Role Phone Shaggy Carmona PA-C Primary Care Provider Ashly Tovar Unavailable [phone] Jesus Joseph Unavailable [phone] Allergies No Known Allergies Reason For Referral No Information Medications Medication SIG (Take, Route, Frequency, Duration) Notes Start Date End Date Status dilTIAZem HCl 180MG capsule three times a day Active Eliquis 5 MG as directed Orally Active hydroCHLOROthiazide 12.5 MG 1 capsule in the morning three times a day Not-Taking Levothyroxine Sodium 75 MCG 1 tablet three times a day Active Atorvastatin Calcium 10 MG 1 tablet three times a day Active Tamsulosin HCl Activ e Vitamin B6 Not-Takin g Omeprazole 20 MG as directed three times a day Active Synthroid 25 MCG 1 tablet Once a day Not-Taking Tylenol Extra Strength Active Immunizations Vaccine Route Administration Date Status Comme nts COVID-19 Moderna Vaccine Unknown 08/12/2020 Administere d 07/15/20 Social History Tobacco Use: Social History Observation Description Date Details (start date - stop date) Never Smoker NA - NA Tobacco use other than smoking: Question Answer Notes Are you an other tobacco user? Yes o ccasional cigar Tobacco Control (Standard) Question Answer Notes Tobacco use: Nonsmoker Additional Findings: Tobacco non-user Current no nsmoker AUDIT-C (Standard) Question Answer Notes Did you have a drink containing alcohol in the p ast year? No Points 0 Interpretation Negative Problems Problem Type SNOMED Code ICD Code Onset Dates Problem Status W/U Status Risk Notes Problem Polyneuropathy due to type 2 diabetes mellitus (834131607) Type 2 diabetes mellitus with diabetic polyneuropathy (E11.42) Active confirmed Problem Bilateral atherosclerosis of arteries of lower limbs (disorder) (65682762999485370 ) Unspecified atherosclerosis of [place] arteries of extremities, bilateral legs (I70.203) Active confirmed Problem Acquired hammer toe of right foot (5087496272954991) Other hammer toe(s) (acquired), right foot (M20.41) Active confirmed Problem Acquired hammer toe of left foot (0082956745759716) Other hammer toe(s) (acquired), left foot (M20.42) Active confirmed Vital Signs Blood pressure diastolic 60 mm Hg 10/16/2024 Height 6ft 1in in 10/16/2024 Blood pressure systolic 120 mm Hg 10/16/2024 Weight 285 lbs 10/16/2024 BMI 37.6 kg/m2 10/16/2024 Procedures Procedure Date Ordered Date Performed Result Body Sit e 44927-UWCCUQO NAIL, 6 OR MORE 06/04/2024 N/A 24709-WEWP SKIN LESIONS, OVER 4 06/04/2024 N/A 10390-FIRKFHX NAIL, 6 OR MORE 10/16/2024 N/A 58015-PKJY SKIN LESIONS, OVER 4 10/16/2024 N/A Encounters Encounter Location Date Provider Diagnosis [address] [address] 11/30/2023 Jesus Joseph Tinea unguium B35.1 ; Pain in right toe(s) M79.674 ; Pain in left toe(s) M79.675 ; Type 2 diabetes mellitus with diabetic polyneuropathy E11.42 ; Other hammer toe(s) (acquired), left foot M20.42 ; Other hammer toe(s) (acquired), right foot M20.41 ; Unspecified atherosclerosis of [place] arteries of extremities, bilateral legs I70.203 and Xerosis cutis L85.[address] [facility] [address] 03/06/2024 Jesus Joseph Tinea unguium B35.1 ; Pain in right toe(s) M79.674 ; Pain in left toe(s) M79.675 ; Other hammer toe(s) (acquired), left foot M20.42 ; Other hammer toe(s) (acquired), right foot M20.41 ; Unspecified atherosclerosis of [place] arteries of extremities, bilateral legs I70.203 and Xerosis cutis L85.3 [facility] [address] [facility] [address] [place] [address] 06/04/2024 Ashly Ríos Type 2 diabetes mellitus with diabetic polyneuropathy E11.42 ; Tinea unguium B35.1 and Unspecified atherosclerosis of [place] arteries of extremities, bilateral legs I70.[address] [address] 10/16/2024 Ashly Ríos Type 2 diabetes mellitus with diabetic polyneuropathy E11.42 ; Tinea unguium B35.1 and Unspecified atherosclerosis of [place] arteries of extremities, bilateral legs I70.[address] [address] 11/30/2023 Jesus Joseph Assessments Encounter Date Diagnosis (ICD Code) Assessment Notes Treatment Notes Treatment Clinical Notes Section Notes 11/30/2023 Tinea unguium (ICD-10 - B35.1) 11/30/2023 Pain in right toe(s) (ICD-10 - M79.674) 03/06/2024 Tinea unguium (ICD-10 - B35.1) 03/06/2024 Pain in right toe(s) (ICD-10 - M79.674) 06/04/2024 Type 2 diabetes mellitus with diabetic polyneuropathy (ICD-10 - E11.42) 06/04/2024 Tinea unguium (ICD-10 - B35.1) 10/16/2024 Type 2 diabetes mellitus with diabetic polyneuropathy (ICD-10 - E11.42) 10/16/2024 Tinea unguium (ICD-10 - B35.1) 10/16/2024 Unspecified atherosclerosis of [place] arteries of extremities, bilateral legs (ICD-10 - I70.203) 06/04/2024 Unspecified atherosclerosis of [place] arteries of extremities, bilateral legs (ICD-10 - I70.203) 03/06/2024 Pain in left toe(s) (ICD-10 - M79.675) 11/30/2023 Pain in left toe(s) (ICD-10 - M79.675) 11/30/2023 Type 2 diabetes mellitus with diabetic polyneuropathy (ICD-10 - E11.42) 03/06/2024 Other hammer toe(s) (acquired), left foot (ICD-10 - M20.42) 03/06/2024 Other hammer toe(s) (acquired), right foot (ICD-10 - M20.41) 11/30/2023 Other hammer toe(s) (acquired), left foot (ICD-10 - M20.42) 11/30/2023 Other hammer toe(s) (acquired), right foot (ICD-10 - M20.41) 03/06/2024 Unspecified atherosclerosis of [place] arteries of extremities, bilateral legs (ICD-10 - I70.203) 03/06/2024 Xerosis cutis (ICD-10 - L85.3) 11/30/2023 Unspecified atherosclerosis of [place] arteries of extremities, bilateral legs (ICD-10 - I70.203) 11/30/2023 Xerosis cutis (ICD-10 - L85.3) Plan Of Treatment Pending Test Test Name Order Date 50709-FLRCGBG NAIL, 6 OR MORE 06/04/2024 45094-AIRJCER NAIL, 6 OR MORE 10/16/2024 65140-XFRP SKIN LESIONS, OVER 4 10/17/19 25 66370-XLKF SKIN LESIONS, OVER 4 06/04/20 24 71471-UISY SKIN LESIONS, OVER 4 11/17/19 22 22401-KFLS SKIN LESIONS, OVER 4 02/09/20 22 57449-HGHBAIJG OF HEMATOMA/FLUID 022 Next Appt Details Provider Name:Ashly Zhanna gilliam, 01/15/2025 02:30:00 PM, [address] [facility], [place], [address], Insurance Providers Payer Name Payer Address Payer Phone Subscriber Number Group Number Insured Name Patient Relationship to Insured Coverage Start Date Coverage End Date Medicare National [employer] [address] [place] [address] [id number] DinoBrayan adrian Self - patient is the insured [facility] [employer] [facility]) [address] [place] [address] [phone] [id number] Brayan Sun Self - patient is the insured Medical (General) History Medical History History ICD Code Back,Hip,and Knee pain Broken bones CAD (Cholesterol) Cataracts Heart disease Numbness Reflux ( GERD) thyroid A fib CPAP hyperlipidemia Kidney stones Surgical History Surgery Date(Month/Year) foot surgery, right 08/11/2007 colonoscopy 02/27/2012 Hospitalization History Reason Date(Month/Year) [facility]- kidney stones 01/2024
== END 2024-11-19 08:22 | disposition home or self-care (01) ==
LOC: HO.US 08:21
PROVIDERS: PCP Physician Assistant Medical; Visit Provider Urology
DX: N20.0 Calculus of kidney (principal)
CPT/HCPCS: 76775

== ENCOUNTER → 2024-11-19 08:23 | Outpatient (BNV) | payer MEDICARE, OTHER, SELFPAY | PROVIDERS: PCP Physician Assistant Medical; Visit Provider Radiology Diagnostic Radiology | DX: N28.1 Cyst of kidney, acquired (principal); N20.0 Calculus of kidney | CPT/HCPCS: 76775 ==

== ENCOUNTER 2024-12-16 12:48 | Outpatient (AMB) | payer MEDICARE, OTHER, SELFPAY ==
--- NOTE | 2024-12-15 15:34 | A.OFFVIS_ITS ---
Intake Visit Reasons: 10m/US/PVR Intake Note: Patient is present for 10m follow up/US/PVR Urology Med: Tamsulosin Antibiotic Allergy:None Blood Thinner: Apixaban PVR:19ml [employer] Required: No Accompanied by: Spouse Allergies No Known Allergies Allergy (Verified 12/16/24 13:22) Medication List - Last Reconciled 12/16/24 by Katina Arteaga MD acetaminophen (Tylenol) 325 mg PO Q4H PRN apixaban (Eliquis) 5 mg PO BID atorvastatin 10 mg PO DAILY diltiazem HCl CD 180 mg PO DAILY hydrochlorothiazide 12.5 mg PO DAILY levothyroxine 75 mcg PO DAILY omeprazole 20 mg PO DAILY tamsulosin (Flomax) 0.4 mg PO DAILY 90 days HPI Comments Details: 12/16/2024--Brayan is followed for nephrolithiasis and BPH, on flomax, 84-year-old question PSA no recent on chart, Ultrasound 11/19/2024 multiple bilateral renal cysts-right kidney 11 mm kidney stone lower pole, left kidney 3 stones identified approximately 7 mm each, 1 in the midpole 2 in the lower pole History of Present Illness - The patient is an 84-year-old male presenting with kidney stones and benign prostatic hyperplasia. - The patient reports no pain or awareness of the stones. - Hematuria: The patient reports nocturnal episodes of pinkish urine, suggestive of blood, occurring between 1 and 3 times a night. - The patient has been advised to provide a urine sample for further evaluation. - Benign prostatic hyperplasia: The patient experiences nocturia and variable urinary flow, sometimes feeling the urge to urgency - Discussed further evaluation with office cystoscopy may be indicated pending urine results - No recent PSA, will check a PSA Results - Ultrasound (11/19/24): Multiple bilateral renal cysts, 11 mm stone in the right kidney, and three small stones in the left kidney. 02/15/24--Brayan is followed for nephrolithiasis and BPH, and had left flank pain with left hydronephrosis due to an obstructing ureteral stone. The patient states he currently has no pain. I reviewed CTAP 02/14/24 --bilateral renal stones, left hydro resolved. Plan continue to monitor kidneys. Cont flomax. FU in 9 months. 01/18/24--Brayan is being evaluated for kidney stones. Follow-up ultrasound notes persistent left hydronephrosis there are bilateral ureteral jets noted. He is currently asymptomatic. The patient would prefer to pass the stone and not have surgery. It is unclear if passed the stone and has hydro from edema or if the stone is still there. I have discussed that if the stone has remained in the same spot in the ureter that I recommend ureteroscopy. I will check an urgent CT stone protocol. 12/22/23--Brayan was in the emergency room due to left flank pain. Comorbidity-anticoagulation on Eliquis CT imaging bilateral kidney stones left hydronephrosis due to obstructing left ureteral stone mid ureter 6 mm. Also bladder wall thickening with diverticuli The patient was sent from the emergency room with antibiotics, Flomax, prednisone On exam no CVA tenderness elicited. Follow-up renal/bladder ultrasound. Continue tamsulosin due to enlarged prostate PFSH Social History Alcohol intake: current Review of Systems Const All systems reviewed & are unremarkable except as noted in HPI and below Reports no additional complaints Eyes Reports no additional complaints ENT Reports no additional complaints Card Reports no additional complaints Resp Reports no additional complaints GI Reports no additional complaints Reports as per HPI Musc Reports no additional complaints Skin/Breast Reports system reviewed and no additional complaints, except as documented Neuro Reports no additional complaints Psych Reports no additional complaints Endo Reports no additional complaints Anoop/Lymph Reports no additional complaints Aller/Immun Reports no additional complaints Results Reviewed Results Reviewed: Date of Service: 11/19/24 EXAMINATION: US KIDNEY BILATERAL HISTORY: N20.0 - Calculus of kidney TECHNIQUE: Real-time grayscale ultrasound imaging of the kidneys was performed and images were reviewed. COMPARISON: Comparison is made with the prior examination dated 12/27/2023. FINDINGS: Right kidney: The right kidney measures 13.5 x 7.2 x 6.1 cm. Renal parenchymal echotexture and thickness are normal. There are multiple cysts, the largest of which is at the lower pole measuring 4.0 x 2.6 x 3.2 cm. There is a nonobstructing 11 x 7 x 4 mm calculus at the lower pole. There is no hydronephrosis. Left Kidney: The left kidney measures 13.7 x 5.9 x 5.6 cm. Renal parenchymal echotexture and thickness are normal. Multiple cysts are noted, the largest of which is at the upper pole measuring 8.7 x 7.2 x 8.2 cm cyst. Multiple nonobstructing calculi are noted including a 7 x 4 x 5 mm calculus in the interpolar region and 7 x 4 x 5 and 7 x 3 x 6 mm calculi at the lower pole. There is no hydronephrosis IMPRESSION: Bilateral renal cysts as described. Bilateral nephrolithiasis. Date of Service: 02/14/24 CT ABDOMEN AND PELVIS WITHOUT CONTRAST CLINICAL INFORMATION: Unspecified hydronephrosis COMPARISON: Renal ultrasound 12/27/2023, CT abdomen and pelvis 12/19/2023 TECHNIQUE: Multidetector volumetric imaging was performed from the superior aspect of the liver through the pubic symphysis. Sagittal and coronal reformatted images were obtained on the technologist's workstation. This CT examination was performed using dose optimization techniques as appropriate, variously including the following: *Automated exposure control *Adjustment of mA and/or kV according to patient size (this includes techniques or standardized protocols for targeted exams where dose is matched to indication/reason for exam; i.e. extremities or head) *Use of iterative reconstruction technique DLP: 840 mGy-cm FINDINGS: LUNG BASES: The visualized lung bases are unremarkable. LIVER, GALLBLADDER, AND BILIARY TREE: The liver is normal in size, shape, and attenuation. No focal hepatic lesion or biliary ductal dilatation is present. The gallbladder is unremarkable with no evidence of radiopaque gallstones, gallbladder wall thickening, or obvious pericholecystic inflammatory changes. PANCREAS: Unremarkable. SPLEEN: Unremarkable. ADRENAL GLANDS: Unremarkable. KIDNEYS AND URETERS: The kidneys are normal in size, shape, and attenuation. Multiple bilateral benign Bosniak class I renal cysts are again noted which require no additional imaging or follow-up. No solid renal masses are seen. The previously seen obstructing mid left ureteral calculus is no longer present and the left-sided hydronephrosis has resolved. There is persistent bilateral intrarenal nonobstructing nephrolithiasis with a single 4 mm calculus in the right lower pole and multiple calculi on the left the largest measuring about 7 mm in size. This stone measures 560 Hounsfield units and the 16 cm from the posterior axillary line. No hydronephrosis, hydroureter, or ureteral calculi seen. No perinephric stranding. BLADDER: 2 small bladder diverticula are seen. No bladder calculi. GASTROINTESTINAL TRACT: The small and large bowel are unremarkable aside from a few scattered colonic diverticula without diverticulitis. The appendix is unremarkable. ABDOMINAL WALL: No significant hernia is appreciated. LYMPH NODES: Normal. VASCULAR: Unremarkable. PELVIC VISCERA: The prostate and seminal vesicles are unremarkable. OSSEOUS STRUCTURES: Degenerative changes are present throughout the spine. IMPRESSION: 1. The previously seen obstructing left ureteral calculus is no longer present and the left-sided hydronephrosis has resolved. 2. Bilateral nonobstructing intrarenal calculi are present. 3. Other incidental findings as described above. Date of Service: 12/27/23 EXAMINATION: US RETROPERITONEAL COMPLETE (RENAL) CLINICAL INFORMATION: Hydronephrosis. COMPARISON: None available. TECHNIQUE: Real-time imaging of the kidneys and bladder. FINDINGS: RIGHT KIDNEY: 12.3 x 7.4 x 6.9 cm (SAG x AP x TRV). The kidney is normal in size, contour, and echogenicity. Renal cortical thickness is normal. No focal parenchymal solid lesions. No hydronephrosis. At the interpolar aspect, a 2.3 x 0.5 x 0.7 cm nonobstructing, shadowing calculus is seen. At the interpolar aspect, 2.2 cm, 3.0 cm and 2.6 cm benign, simple cysts are seen, which prior imaging follow-up. LEFT KIDNEY: 14.6 x 6.2 x 4.8 cm (SAG x AP x TRV). The kidney is normal in size, contour, and echogenicity. Renal cortical thickness is normal. No calculi or focal parenchymal lesions. There is moderate hydronephrosis. At the upper pole, 8.7 cm and 3.1 cm benign, simple cysts are seen. At the interpolar aspect, a 1.8 cm benign, simple cyst is seen. These require no imaging follow-up BLADDER: Well distended, without mass or calculus. A 3.7 cm posterior bladder diverticulum is noted. Bilateral ureteral jets are demonstrated. Prevoid bladder volume is 232 mL. Postvoid bladder volume is 206 mL. IMPRESSION: 1. There is a 2.3 cm nonobstructing right renal interpolar calculus. 2. There is moderate left hydronephrosis. 3. There is an increased postvoid residual volume. 4. A posterior bladder diverticulum is noted. Date of Service: 12/19/23 EXAMINATION: CT ABDOMEN AND PELVIS WITHOUT CONTRAST CLINICAL INFORMATION: Left lower quadrant pain COMPARISON: None available. TECHNIQUE: Multidetector volumetric imaging was performed from the superior aspect of the liver through the pubic symphysis. Sagittal and coronal reformatted images were obtained on the technologist's workstation. This CT examination was performed using dose optimization techniques as appropriate, variously including the following: *Automated exposure control *Adjustment of mA and/or kV according to patient size (this includes techniques or standardized protocols for targeted exams where dose is matched to indication/reason for exam; i.e. extremities or head) *Use of iterative reconstruction technique DLP: 989 mGy-cm FINDINGS: LUNG BASES: Bibasilar atelectasis. No pneumothorax. No large pleural effusion. LIVER, GALLBLADDER, AND BILIARY TREE: The liver is normal in size, shape, and attenuation. No focal hepatic lesion or biliary ductal dilatation is present. The gallbladder is unremarkable with no evidence of radiopaque gallstones, gallbladder wall thickening, or obvious pericholecystic inflammatory changes. PANCREAS: Mild atrophy of the visualized pancreas. SPLEEN: Unremarkable. ADRENAL GLANDS: Unremarkable. KIDNEYS AND URETERS: Mild left-sided hydroureteronephrosis secondary to a 6 mm calculus at the level of the left mid ureter with periureteral and perinephric stranding. Additional calculi noted in the left kidney measuring up to 1.0 cm. Right-sided nephrolithiasis measuring up to 7 mm without hydronephrosis. 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 GASTROINTESTINAL TRACT: Small hiatal hernia. Slight colonic diverticulosis without acute diverticulitis. The small and large bowel are unremarkable. The appendix is unremarkable. ABDOMINAL WALL: Diastases rectae with laxity of the anterior abdominal wall. LYMPH NODES: No enlarged lymph nodes per size criteria. VASCULAR: Abdominal aorta is nonaneurysmal. PELVIC VISCERA: Prostate measures 4.1 cm with coarse calcifications within its body. Osteopenia. Suggestion of superior endplate compression deformity of L4, chronicity indeterminate. Correlation with physical exam. Multilevel degenerative changes of the thoracolumbar and lumbosacral spine. Degenerative arthropathy of the bilateral femoral acetabular and sacroiliac joints. Sclerotic focus along the right pubic symphysis nonspecific though potentially representing a bone island. OSSEOUS STRUCTURES: Unremarkable. IMPRESSION: 1. Mild left-sided hydroureteronephrosis secondary to a 6 mm calculus at the level of the left mid ureter with periureteral and perinephric stranding. Additional calculi noted in the left kidney measuring up to 1.0 cm. Right-sided nephrolithiasis measuring up to 7 mm without hydronephrosis. 2. 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 3. Small hiatal hernia. Slight colonic diverticulosis without acute diverticulitis. 4. Osteopenia. Suggestion of superior endplate compression deformity of L4, chronicity indeterminate. Correlation with physical exam. Assessment & Plan Assessment & Plan (1) Hematuria: Code(s): R31.9 - Hematuria, unspecified Category: Medical (2) Bilateral kidney stones: Code(s): N20.0 - Calculus of kidney Category: Medical (3) BPH loc w urin obs/LUTS: Code(s): N40.1 - Benign prostatic hyperplasia with lower urinary tract symptoms Category: Medical Plan Plan - Arrange for a urine sample to evaluate hematuria, with the option to provide the sample at any [facility] lab. - Discuss the results of the urine test in a follow-up phone call. - Continue current medication regimen with tamsulosin (Flomax) for BPH management. Orders: Orders UA and rflx microscopic Today R31.9 - Hematuria, unspecified Patient Instructions: The patient had an opportunity to ask questions regarding treatment plan. The patient expressed understanding and agreement with the above treatment plan. The patient is aware they should contact our office by phone for worsening of their current condition or the appearance of new symptoms. Compliance is encouraged with any medications and followup testing that is ordered. It is a privilege to be allowed the opportunity to participate in the urologic care of your patient. If you have any questions or concerns regarding treatment for the above conditions please do not hesitate to contact me. The office telephone contact is [phone]. This note is constructed in part using voice recognition software. While every effort has been made to ensure accuracy aviation medicine specialist errors may have been inc luded. Yours sincerely, Katina Arteaga MD Scribe Plan - Not visible on output: Patient was informed and verbally consented to the use of an ambient scribe for clinic note documentation during this visit. Coding Level of Care Code Est Pt Level 4 (08890) Diagnoses Hematuria R31.9 Bilateral kidney stones N20.0 BPH loc w urin obs/LUTS N40.1
--- OUTSIDE RECORDS SUMMARY | 2024-12-16 13:19 | XMS_ITS | Clinical Summary ---
Author Organization [facility] [employer] Address [address] [place] [address] Phone Care Team Providers Care Processing Supervisor Name Role Phone Shaggy Carmona Primary Care Provider + [phone] Allergies No known active allergies Medications apixaban (Eliquis) 5 mg tablet Take 1 tablet (5 mg total) by mouth 2 (two) times a day. 4 Active dilTIAZem CD (CARDIZEM CD) 180 mg 24 hr capsule Take 1 capsule (180 mg total) by mouth 1 (one) time each day. 4 Active atorvastatin (LIPITOR) 10 mg tablet Take 1 tablet (10 mg total) by mouth at bedtime. Active levothyroxine (SYNTHROID, LEVOTHROID) 75 mcg tablet Take 1 tablet (75 mcg total) by mouth 1 (one) time each day before breakfast. Active omeprazole (PriLOSEC) [address] capsule Take 1 capsule (20 mg total) by mouth 1 (one) time each day. Active magnesium oxide/vit B6 (MAGNESIUM OXIDE-PYRIDOXIN E HCL ORAL) Take by mouth 1 (one) time each day. 11/26/19 25 Discontinue d(Discontin ued by another clinician) levothyroxine sodium (TIROSINT) 75 mcg capsule Take by mouth. 11/26/19 Discontinue d(Discontin ued by another clinician) acetaminophen (TYLENOL) 500 mg tablet Take by mouth. 11/26/19 Discontinue d(Discontin ued by another clinician) ostomy supplies aerosol,spray Inhale by mouth. CPAP 06/16/20 25 Discontinue d(Discontin ued by another clinician) hydroCHLOROthia zide (MICROZIDE) 12.5 mg capsule TAKE 1 CAPSULE BY MOUTH EVERY DAY 90 capsule 2 5 11/26/19 25 Discontinue d(Discontin ued by another clinician) Active Problems Problem Noted Date Diagnosed Date Aortic dilatation ([facility] V24) 05/17/2021 Assessment & Plan (11/25/2024 9:14 AM EDT): Patient's most recent echocardiogram showed ascending aorta measuring 4.6 cm. Repeat an echocardiogram in 6 months. Dyspnea 11/11/2020 Overview (05/27/2024): Last Assessment & Plan: Patient's exertional shortness of breath continues however he continues to report that he resolves quickly with rest. Please see assessment and plan under atrial fibrillation above. Hypothyroidism 11/10/2020 Hyperlipidemia 11/10/2020 Assessment & Plan (11/25/2024 9:14 AM EDT): Patient's last LDL cholesterol 68. This is at goal. Continue with rosuvastatin as prescribed. Essential hypertension 11/10/2020 Assessment & Plan (11/25/2024 9:14 AM EDT): Patient is well pressure is under good control with a reading today of 130/82. He will continue on his present medical therapies including diltiazem and hydrochlorothiazide. Atrial fibrillation ([facility] V24, CMS/HCC V28) 0 11/10/2020 Overview (11/25/2024): Assessment & Plan (11/25/2024 9:14 AM EDT): Patient is history of atrial fibrillation continues on diltiazem for rate control. He continues on anticoagulation with Eliquis without any bleeding or excessive bruising. In the past he was on amiodarone therapy for rate control but has not been on this in quite some time. In the past he was also offered the possibility of cardioversion however he did not wish to pursue this option. He continues to do well on medical therapy and would like to continue as such. Cardiac function is preserved. Encounters Date Type Department Care Team Description 11/25/2024 8:40 AM EDT Office Visit [facility] [address] [place] [address] Violeta Pascual NP Longstanding persistent atrial fibrillation ([facility] V24, [facility] V28) (Primary Dx); Aortic dilatation ([facility] V24); Essential hypertension; Mixed hyperlipidemia 11/22/2024 12:30 PM EDT Ancillary Procedure [facility] [address] [place] [address] Longstanding persistent atrial fibrillation ([facility] V24, [facility] V28); Essential hypertension; Aortic dilatation ([facility] V24); Aneurysm of ascending aorta without rupture ([facility] V24) from Last 3 Months Surgical History Surgery Date Site/Laterality Comments COLONOSCOPY 02/27/2012 PROCEDURE: HISTORICAL COLONOSCOPY OTHER SURGICAL HISTORY 08/11/2007 PROCEDURE: HISTORY OTHER; COMMENT: Foot/toes surgery procedure Medical History Medical History Date Comments Idiopathic peripheral neuropathy DX:Idiopathic peripheral neuropathy GERD (gastroesophageal reflux disease) DX:GERD (gastroesophageal reflux disease) Hyperplasia of prostate DX:Hyper plasia of prostate Benign prostatic hyperplasia DX: Benign prostatic hyperplasia Degeneration of lumbar inter vertebral disc DX:Degeneration of lumbar in tervertebral disc IFG (impaired fasting glucose) D X:IFG (impaired fasting glucose) 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 9, adult ([facility]); COMMENT: Severely obese Family History Medical History Relation Name Comments Other: Carcinoma in situ of lung Father at age 34 Diabetes Mother Relation Name Status Comments Father Mother Social History Tobacco Use Types Packs/Day Years Used Date Smoking Tobacco: Some Days Cigars Smokeless Tobacco: Never Tobacco Cessation:Ready to Q uit: Not Asked; Counseling Given: Not Answered Comments:Occasional cigar Alcohol Use Standard Drinks/Week Comments Yes 0 (1 standard drink = 0.6 oz pur e alcohol) couple times weekly Sex and Gender Information Value Date Recorded Sex Assigned at Not on file Legal Sex Male 10:19 PM EST Gender Identity Not on file Sexual Orientation Not on file Obstetrics History Last Filed Vital Signs Vital Sign Reading Time Taken Comments Blood Pressure 130/82 11/25/2024 8:32 AM EDT Pulse 67 11/25/2024 8:32 AM EDT Temperature - - Respiratory Rate - - Oxygen Saturation 97% 11/25/2024 8:32 AM EDT Inhaled Oxygen Concentration - - Weight 140 kg (309 lb 3.2 oz) 11/25/2024 8:32 AM EDT Height 185.4 cm (6' 1 ) 11/25/2024 8:32 AM EDT Body Mass Index 40.79 11/25/2024 8:32 AM EDT Plan of Treatment Upcoming Encounters Date Type Department Care Team (Late st Contact Info) Description 05/27/2025 10:00 AM EST Ancillary Procedure [facility] [address] [place] [address] Health Maintenance Due Date Last Done Comments Diabetes: Annual GFR (Glomerular Filtration Rate) 1942 Diabetes: Annual Foot Exam 02/15/1952 Diabetes: Annual Retina Eye Exam 02/15/1952 RSV Immunization Adult Patients (1 - 1-dose 75+ series) 2017 Zoster Vaccines (2 of 3) 05/15/2019 03/20/2019 Cholesterol Screening (Lipid Panel) 05/21/2022 Depression Screening 05/21/2022 Falls Risk Assessment 05/21/2022 Social Influencers of Health Screening 05/21/2022 Hypertension/CHF/CAD Annual BMP Blood Test 05/22/2022 Medicare Annual Wellness Visit 01/05/2024 01/04/2023 COVID-19 Vaccine ( season) 2024 04/04/2024, 03/02/2023, 03/23/2022, Additional history exists Diabetes: Annual Urine Albumin-Creatinine Ratio (uACR) 11/22/2024 Diabetes: Blood Sugar Control Test (HGBA1C) 11/22/2024 Influenza Vaccine (#1) 2025 , 03/02/2023, 03/23/2022, Additional history exists DTaP,Tdap,and Td Vaccines (3 - Td or Tdap) 03/12/2025 03/12/2015, 01/29/2004 Pneumococcal Vaccine: 50+ Years Completed 11/23/2017, 06/02/2016 HIB Vaccines Aged Out No longer eligi ble based on patient's age to complete this topic HPV Vaccines Aged Out No longer eligi ble based on patient's age to complete this topic Hepatitis A Vaccines Aged Out No long er eligible based on patient's age to complete this topic Hepatitis B Vaccines Aged Out No long er eligible based on patient's age to complete this topic IPV Vaccines Aged Out No longer eligi ble based on patient's age to complete this topic MMR Vaccines Aged Out No longer eligi ble based on patient's age to complete this topic Meningococcal ACWY Vaccine Aged Out N o longer eligible based on patient's age to complete this topic Meningococcal B Vaccine Aged Out No l onger eligible based on patient's age to complete this topic RSV Immunization Patients Under 20 months Aged Out No longer eligible based on patient's age to complete this topic Varicella Vaccines Aged Out No longer eligible based on patient's age to complete this topic Procedures Procedure Name Priority Date/Time Associated Diagnosis Comments ECG 12-LEAD Routine 11/25/2024 9:14 AM EDT Essential hypertension Mixed hyperlipidemia Longstanding persistent atrial fibrillation (CMS/HCC V24, CMS/HCC V28) Aortic dilatation (CMS/HCC V24) EXTERNAL CLINICAL LAB Routine 11/15/2024 1:37 PM EDT from Last 3 Months Results * ECG 12 lead (11/25/2024 9:14 AM EDT) Ventricular Rate ECG 91 BPM GEMUSE Atrial Rate 86 BPM GEMUSE QRS Duration 140 ms GEMUSE Q-T Interval 402 ms GEMUSE QTc 494 ms GEMUSE R [place] -61 degrees GEMUSE T [place] 70 degrees GEMUSE ECG Interpretation Atrial fibrillation Right bundle branch block Left anterior fascicular block Abnormal ECG No previous ECGs available Confirmed by FRANK MCDOWELL ([id number]) on 11/25/2024 10:54:27 AM GEMUSE 11/25/2024 8:47 AM EDT 11/25/2024 10:54 AM EDT us Violeta Pascual HIDE PULLER ECG ORDERABLES Edited Resul t - Final GEMUSE * External clinical lab (11/15/2024 1:37 PM EDT) us Shaggy Carmona MD LAB BLOOD ORDERABLES Final Res ult from Last 3 Months Insurance MEDICARE [facility] Advance Directives Documents on File Type Date Recorded Patient 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 Expl anation Health Care Decision (hx) 11/09/2021 AD WHEELER DIRECTIVE Health Care Decision (hx) 11/09/2021 AD WHEELER DIRECTIVE Health Care Decision (hx) 11/09/2021 AD WHEELER DIRECTIVE Health Care Decision (hx) 11/09/2021 AD WHEELER DIRECTIVE Health Care Decision (hx) 11/09/2021 AD WHEELER DIRECTIVE Health Care Decision (hx) 11/09/2021 AD WHEELER DIRECTIVE Health Care Decision (hx) 11/09/2021 AD WHEELER DIRECTIVE Health Care Decision (hx) 11/09/2021 AD WHEELER DIRECTIVE Care Teams Processing Supervisor Relationship Specialty Start Date End Date Shaggy Carmona PA [address] [address] PCP - General Internal Medicine 01/11/22
--- OUTSIDE RECORDS SUMMARY | 2024-12-16 13:19 | XMS_ITS | Patient Health Record ---
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, bilateral legs (I70.203) Active confirmed Problem Acquired hammer toe of right foot (7734855203385052) Other hammer toe(s) (acquired), right foot (M20.41) Active confirmed Problem Acquired hammer toe of left foot (3363407570378108) Other hammer toe(s) (acquired), left foot (M20.42) Active confirmed Vital Signs Blood pressure diastolic 60 mm Hg 10/16/2024 Height 6ft 1in in 10/16/2024 Blood pressure systolic 120 mm Hg 10/16/2024 Weight 285 lbs 10/16/2024 BMI 37.6 kg/m2 10/16/2024 Procedures Procedure Date Ordered Date Performed Result Body Sit e 41647-ATUINLR NAIL, 6 OR MORE 06/04/2024 N/A 24028-OFIV SKIN LESIONS, OVER 4 06/04/2024 N/A 89271-NFDUTEZ NAIL, 6 OR MORE 10/16/2024 N/A 51060-JXNI SKIN LESIONS, OVER 4 10/16/2024 N/A Encounters Encounter Location Date Provider Diagnosis [facility] [address] [place] [address] 03/06/2024 Jesus Joseph Tinea unguium B35.1 ; Pain in right toe(s) M79.674 ; Pain in left toe(s) M79.675 ; Other hammer toe(s) (acquired), left foot M20.42 ; Other hammer toe(s) (acquired), right foot M20.41 ; 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, bilateral legs I70.203 and Xerosis cutis L85.3 [facility] [place] [address] [place] [address] 06/04/2024 Ashly Ríos Type 2 diabetes mellitus with diabetic polyneuropathy E11.42 ; Tinea unguium B35.1 and 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42) 06/04/2024 Tinea unguium (ICD-10 - B35.1) 10/16/2024 Type 2 diabetes mellitus with diabetic polyneuropathy (ICD-10 - E11.42) 10/16/2024 Tinea unguium (ICD-10 - B35.1) 10/16/2024 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, bilateral legs (ICD-10 - I70.203) 06/04/2024 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, bilateral legs (ICD-10 - I70.203) 03/06/2024 Pain in left toe(s) (ICD-10 - M79.675) 03/06/2024 Other hammer toe(s) (acquired), left foot (ICD-10 - M20.42) 03/06/2024 Other hammer toe(s) (acquired), right foot (ICD-10 - M20.41) 03/06/2024 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, bilateral legs (ICD-10 - I70.203) 03/06/2024 Xerosis cutis (ICD-10 - L85.3) Plan Of Treatment Pending Test Test Name Order Date [id number]-WKPOGIQ NAIL, 6 OR MORE 06/04/2024 33015-EOHTWLU NAIL, 6 OR MORE 10/16/2024 19464-VZMV SKIN LESIONS, OVER 4 10/17/19 81043-XPGR SKIN LESIONS, OVER 4 06/04/20 43635-JDSM SKIN LESIONS, OVER 4 11/17/19 25427-XSTX SKIN LESIONS, OVER 4 02/09/20 22 [id number]-[id number] OF HEMATOMA/FLUID 022 Next Appt Details Provider Name:Ashly gilliam, 01/15/2025 02:30:00 PM, [address] [facility], [place], [address], Insurance Providers Payer Name Payer Address Payer Phone Subscriber Number Group Number Insured Name Patient Relationship to Insured Coverage Start Date Coverage End Date Medicare National Govt [facility] [address] [place] [address] [id number] Brayan Sun Self - patient is the insured [employer]finance [employer] ([employer]) [address] [place] [address] [phone] [id number] Brayan Sun Self - patient is the insured Medical (General) History Medical History History ICD Code Back,Hip,and Knee pain Broken bones CAD (Cholesterol) Cataracts Heart disease Numbness Reflux ( GERD) thyroid A fib CPAP hyperlipidemia Kidney stones Surgical History Surgery Date(Month/Year) foot surgery, right 08/11/2007 colonoscopy 02/27/2012 Hospitalization History Reason Date(Month/Year) [facility] [place]
--- OUTSIDE RECORDS SUMMARY | 2024-12-16 13:20 | XMS_ITS | Data Portability ---
Author Organization [facility], Main Office Address [address] [facility] [address] [place] [id number] Care Team Providers Care Property Portfolio Officer Name Role Phone ARAMIS BOWEN Elementary Reading Tutor KARTHIK VEGA Blister Rust Eradicator [phone] MARCELLO GONSALVES Primary Care Provider Assessment Encounter Date Assessment Date Assessment LastModified by Organization Details LastModified Time 06/01/2022 06/01/2022 reviewed 05.25.22 labs in pvix - normal pmadden Not available 06/01/2022 10:23:25 Plan of Treatment Reminders Order Date Submit Date Provider Last Modified By Organization Details Last Modified Time Details Appointments [email or web address] 2024 09:30A M Marcello Gonsalves PA-C Not available Not available Not available Lab HbA1c (hemoglob in A1c), blood 2024 025 MALISSA [facility] (Centralized Electronic Ordering - All Locations), Patient Can Go To The Location Of Their Choice, [id number] 11/16/2024 06:08:18 lipid panel, serum 2024 025 MALISSA [facility] (Centralized Electronic Ordering - All Locations), Patient Can Go To The Location Of Their Choice, [id number] 11/16/2024 06:08:17 CMP, serum or plasma 2024 025 MALISSA [facility] (Centralized Electronic Ordering - All Locations), Patient Can Go To The Location Of Their Choice, [id number] 11/16/2024 06:08:17 CBC w/ auto diff 2024 025 MALISSA [facility] (Centralized Electronic Ordering - All Locations), Patient Can Go To The Location Of Their Choice, [id number] 11/16/2024 06:08:16 TSH, ultra-sen sitive, serum 2024 025 MALISSA [facility] (Centralized Electronic Ordering - All Locations), Patient Can Go To The Location Of Their Choice, [id number] 11/16/2024 06:08:19 BMP, serum or plasma 2023 024 MALISSA [facility] (Centralized Electronic Ordering - All Locations), Patient Can Go To The Location Of Their Choice, [id number] 11/16/2024 06:08:22 TSH, ultra-sen sitive, serum 2023 024 MALISSA [facility] (Centralized Electronic Ordering - All Locations), Patient Can Go To The Location Of Their Choice, [id number] 11/16/2024 06:08:23 HbA1c (hemoglob in A1c), blood 2023 024 MALISSA [facility], [address], [address], [place], [id number], 01/19/2024 20:59:16 CMP, serum or plasma 2023 024 MALISSA [facility], [address], [address], [place], [id number], 01/19/2024 20:59:14 CBC w/ auto diff 2023 024 MALISSA [facility], [address], [address], [place], [id number], 01/19/2024 20:59:14 lipid panel, serum 2023 024 MALISSA [facility], [address], [address], [place], [id number], 01/19/2024 20:59:15 CK (creatine kinase), total, serum 2023 024 MALISSA [facility], [address], [address], [place], [id number], 01/19/2024 20:59:17 PSA, serum or plasma - Screening 2023 024 MALISSA [facility], [address], [address], [place], [id number], 01/19/2024 20:59:16 TSH, ultra-sen sitive, serum 2023 024 MALISSA [facility] (Centralized Electronic Ordering - All Locations), Patient Can Go To The Location Of Their Choice, [id number] 01/19/2024 20:59:17 HbA1c (hemoglob in A1c), blood 2022 023 MALISSA [facility], [address], [address], [place], [id number], 01/11/2023 11:37:07 CMP, serum or plasma 2022 023 MAILSSA [facility], [address], [address], [place], [place], [id number], 01/11/2023 12:05:41 CBC w/ auto diff 2022 023 MALISSA [facility], [address], [address], [place], [place], [id number], 01/11/2023 11:01:15 lipid panel, serum 2022 023 MALISSA [facility], [address], [address], [place], [id number], 01/11/2023 12:05:43 CK (creatine kinase), total, serum 2022 023 MALISSA [facility], [address], [address], [place], [id number], 01/11/2023 12:05:39 PSA, serum or plasma - Screening 2022 023 MALISSA [facility], [address], [address], [place], [id number], 01/11/2023 11:32:11 TSH, serum or plasma 2022 023 MALISSA [facility], [address], [address], [place], [address], 01/11/2023 11:32:13 BMP, serum or plasma 2021 022 MALISSA [facility], [address], [address], [place], [id number], 01/11/2023 07:11:44 HbA1c (hemoglob in A1c), blood 2021 022 MALISSA [facility], [address], [address], [place], [id number], 01/11/2023 07:11:45 Referral nutrition ist/dieti zabrina referral 2023 024 [email or web address] Not available 01/10/2024 11:30:51 wound care referral 2022 023 damien [facility], [address] [place] [address] [place], [id number], 01/27/2023 15:40:31 nutrition ist/dieti zabrina referral 2022 023 damien Not available 01/05/2023 09:40:17 Procedures cerumen removal (PROC) 2024 025 SUMNER In-Office Order, Internal Use Only DO Not Attach Compendium DO Not Attach Compendium, Do Not Delete/merge, [id number] 11/13/2024 15:41:26 Surgeries None recorded. Imaging XR, cervical spine 2023 024 [facility], [address] [place], [id number], 04/30/2024 15:13:34 Medication Orders None recorded. Patient Targets Encounter Date Encounter Id Patient Goals Patient Target Last Modified By Organization Details Last Modified Time 06/01/2022 [id number] detention goal of Blood Pressure 140 / 90 Not available Not available Not available oil heaterman goal of Exercise level Not available Not available Not available detention goal of Tobacco Smoking Status Not available Not available Not available Pt advised and agrees to eat a low salt low fat diet; to do moderate exercise (such as walking) 150 minutes per week; to limit alcohol intake (goal of 2 drinks per day or less for men or 1 for woman). and to monitor dietary sodium. Will monitor home blood pressures and bring readings to appointments. Patient preferences and goals incorporated in plan and updated/modified as needed to reflect progress toward goal. pmadden Not available 06/01/2022 10:23:46 01/04/2023 [id number] oil heaterman goal of Blood Pressure 140 / 90 Not available Not available Not available detention goal of Exercise level Not available Not available Not available detention goal of Tobacco Smoking Status Not available Not available Not available Ongoing of LDL Direct <100 Not available Not available Not available Ongoing of LDL Direct yearly Not available Not available Not available Pt advised and agrees to eat a low salt low fat diet; to do moderate exercise (such as walking) 150 minutes per week; to limit alcohol intake (goal of 2 drinks per day or less for men or 1 for woman). and to monitor dietary sodium. Will monitor home blood pressures and bring readings to appointments. Patient preferences and goals incorporated in plan and updated/modified as needed to reflect progress toward goal. Pt agrees to follow low fat diet, avoid saturated fats , decrease carbohydrate intake to 45 - 50 gm per meal , pt agrees to develop a regular pattern of exercise such as walking 30 minutes a day 3 times a week, Pt will keep a record of exercise and activity level Patient preferences and goals incorporated in plan and updated/modified as needed to reflect progress toward goal. Pt advised and agrees to work on self-monitoring behaviors; begin an appropriate diet for weight loss (such as a low carbohydrate diet), to do moderate exercise (such as walking) for approximately 150 minutes per week; and to identify desirable and timely rewards that will reinforce achievement of specific weight loss goals. pmadden Not available 01/08/2023 13:13:15 01/10/2024 [id number] oil heaterman goal of Blood Pressure 140 / 90 Not available Not available Not available detention goal of Exercise level Not available Not available Not available detention goal of Tobacco Smoking Status Not available Not available Not available oil heaterman goal of Excess Body Weight Loss % 5 Not available Not available Not available Ongoing of LDL Direct yearly Not available Not available Not available Ongoing of LDL Direct <100 Not available Not available Not available Pt advised and agrees to eat a low salt low fat diet; to do moderate exercise (such as walking) 150 minutes per week; to limit alcohol intake (goal of 2 drinks per day or less for men or 1 for woman). and to monitor dietary sodium. Will monitor home blood pressures and bring readings to appointments. Patient preferences and goals incorporated in plan and updated/modified as needed to reflect progress toward goal. Pt agrees to follow low fat diet, avoid saturated fats , decrease carbohydrate intake to 45 - 50 gm per meal , pt agrees to develop a regular pattern of exercise such as walking 30 minutes a day 3 times a week, Pt will keep a record of exercise and activity level Patient preferences and goals incorporated in plan and updated/modified as needed to reflect progress toward goal. Pt advised and agrees to work on self-monitoring behaviors; begin an appropriate diet for weight loss (such as a low carbohydrate diet), to do moderate exercise (such as walking) for approximately 150 minutes per week; and to identify desirable and timely rewards that will reinforce achievement of specific weight loss goals. pmadden Not available 01/10/2024 11:15:17 04/30/2024 [id number] Ongoing of Microalbumin/Cre atinine Ratio yearly Not available Not available Not available Ongoing of Blood Pressure 130 / 80 Not available Not available Not available Ongoing of Hemoglobin A1C 2 times per yr Not available Not available Not available Ongoing of Hemoglobin A1C <7 Not available Not available Not available Ongoing of LDL Direct <100 Not available Not available Not available Ongoing of Cholesterol, LDL <100 Not available Not available Not available Pt advised and agrees to do moderate exercise (such as walking) for approximately 150 minutes per week; to decrease carbohydrate intake (25 % of total carbohydrates or less); and to monitor blood glucose as directed Will bring meter and/or readings to appointments. Patient preferences and goals incorporated in plan and updated/modified as needed to reflect progress toward goal. pmadden Not available 04/30/2024 09:36:27 11/13/2024 [id number] oil heaterman goal of Blood Pressure 140 / 90 Not available Not available Not available oil heaterman goal of Exercise level Not available Not available Not available detention goal of Tobacco Smoking Status Not available Not available Not available Pt advised and agrees to eat a low salt low fat diet; to do moderate exercise (such as walking) 150 minutes per week; to limit alcohol intake (goal of 2 drinks per day or less for men or 1 for woman). and to monitor dietary sodium. Will monitor home blood pressures and bring readings to appointments. Patient preferences and goals incorporated in plan and updated/modified as needed to reflect progress toward goal. pmadden Not available 11/13/2024 14:47:36 Patient Instructions Encounter Date Encounter Id Patient Instructions Last Modified By Organization Details Last Modified Time 06/01/2022 [id number] Medications (OTC , herbal therapies, supplements) reviewed and reconciled with patient and or caregiver, including potential side effects, drug interactions, instructions, and the consequences of not taking medication. Reviewed potential barriers to medication adherence, such as side effects from medication or cost of medication. pmadden Not available 06/01/2022 10:24:46 01/04/2023 [id number] preventing falls : care instructions pmadden Not available 01/04/2023 14:28:59 medicare preventive services guide (male 74 rs and under) pmadden Not available 01/04/2023 14:28:59 starting a weigh t loss plan: care instructions pmadden Not available 01/04/2023 14:28:58 Nutrition Referral and Weight Management Follow-up Information pmadden Not available 01/04/2023 14:28:59 Prostate Cancer Screening pmadden Not available 01/04/2023 14:28:59 Medications (OTC , herbal therapies, supplements) reviewed and reconciled with patient and or caregiver, including potential side effects, drug interactions, instructions, and the consequences of not taking medication. Reviewed potential barriers to medication adherence, such as side effects from medication or cost of medication. pmadden Not available 01/04/2023 14:13:32 01/10/2024 [id number] preventing falls : care instructions pmadden Not available 01/10/2024 11:18:16 well visit, over 65: care instructions pmadden Not available 01/10/2024 11:18:16 medicare preventive services guide (male 74 rs and under) pmadden Not available 01/10/2024 11:18:17 starting a weigh t loss plan: care instructions pmadden Not available 01/10/2024 11:18:16 Nutrition Referral and Weight Management Follow-up Information pmadden Not available 01/10/2024 11:18:16 Prostate Cancer Screening pmadden Not available 01/10/2024 11:18:16 Medications (OTC , herbal therapies, supplements) reviewed and reconciled with patient and or caregiver, including potential side effects, drug interactions, instructions, and the consequences of not taking medication. Reviewed potential barriers to medication adherence, such as side effects from medication or cost of medication. pmadden Not available 01/10/2024 11:15:25 04/30/2024 [id number] pinched nerve in the neck: care instructions pmadden Not available 04/30/2024 09:39:25 neck arthritis: exercises pmadden Not available 04/30/2024 09:39:25 Medications (OTC , herbal therapies, supplements) reviewed and reconciled with patient and or caregiver, including potential side effects, drug interactions, instructions, and the consequences of not taking medication. Reviewed potential barriers to medication adherence, such as side effects from medication or cost of medication. pmadden Not available 04/30/2024 09:21:20 11/13/2024 [id number] earache: care instructions pmadden Not available 11/13/2024 14:38:09 eustachian tube problems: care instructions pmadden Not available 11/13/2024 14:38:09 earwax blockage: care instructions pmadden Not available 11/13/2024 14:38:09 rec. get debrox kit - apply 5 drops in affected ear before bedtime, then place cotton ball - do so nightly x 1-3 nights, then use bulb syringe with warm water in the shower on the following day to irrigate the blockage out - do so monthly for prevention, avoid use of q-tips pmadden Not available 11/13/2024 14:37:36 Medications (OTC , herbal therapies, supplements) reviewed and reconciled with patient and or caregiver, including potential side effects, drug interactions, instructions, and the consequences of not taking medication. Reviewed potential barriers to medication adherence, such as side effects from medication or cost of medication. 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 Refer ral for Body mass index 40+ - severely obese Referring Physician: Marcello Gonsalves, Internal Medicine, Encounter Date: 01/10/2024 Results Created Date Observation Date Name Description Value Unit Range Abnormal Flag Note LastModifiedBy Organization Detail LastModifiedTime 01/12/2001/11/2023 BASIC METAB OLIC PANEL results Dupli wilmar order cance lled via inter face Not Available [facility] (Centralized Electronic Ordering - All Locations) Patient Can Go To The Location Of Their Choice, 01/11/2023 07:11:43 01/12/2001/11/2023 HEMOG LOBIN A1C results Dupli wilmar order cance lled via inter face Not Available [facility] (Centralized Electronic Ordering - All Locations) Patient Can Go To The Location Of Their Choice, 01/11/2023 07:11:45 01/12/2001/11/2023 COMPL ETE BLOOD COUNT WBC 7.6 K/mm3 (4.0-1 1.0) Not Available [facility] (Centralized Electronic Ordering - All Locations) Patient Can Go To The Location Of Their Choice, 01/11/2023 11:01:15 01/12/2001/11/2023 COMPL ETE BLOOD COUNT RBC 5.57 M/mm3 (4.70- 6.10) Not Available [facility] (Centralized Electronic Ordering - All Locations) Patient Can Go To The Location Of Their Choice, 01/11/2023 11:01:15 01/12/2001/11/2023 COMPL ETE BLOOD COUNT HGB 16.6 gm/dL (13.7- 17.1) Not Available [facility] (Centralized Electronic Ordering - All Locations) Patient Can Go To The Location Of Their Choice, 01/11/2023 11:01:15 01/12/2001/11/2023 COMPL ETE BLOOD COUNT HCT 50.7 % (40.5- 50.0) high Not Available [facility] (Centralized Electronic Ordering - All Locations) Patient Can Go To The Location Of Their Choice, 01/11/2023 11:01:01/12/2001/11/2023 COMPL ETE BLOOD COUNT MCV 91.0 fL (80.0- 94.0) Not Available [facility] (Centralized Electronic Ordering - All Locations) Patient Can Go To The Location Of Their Choice, 01/11/2023 11:01:01/12/2001/11/2023 COMPL ETE BLOOD COUNT MCH 29.8 pg (27.0- 34.0) Not Available [facility] (Centralized Electronic Ordering - All Locations) Patient Can Go To The Location Of Their Choice, 01/11/2023 11:01:01/12/2001/11/2023 COMPL ETE BLOOD COUNT MCHC 32.7 g/dL (33.0- 37.0) low Not Available [facility] (Centralized Electronic Ordering - All Locations) Patient Can Go To The Location Of Their Choice, 01/11/2023 11:01:01/12/2001/11/2023 COMPL ETE BLOOD COUNT plt 196 K/mm3 (150-4 60) Not Available [facility] (Centralized Electronic Ordering - All Locations) Patient Can Go To The Location Of Their Choice, 01/11/2023 11:01:01/12/2001/11/2023 COMPL ETE BLOOD COUNT RDW-SD 45.3 fL (<47.0 ) Not Available [facility] (Centralized Electronic Ordering - All Locations) Patient Can Go To The Location Of Their Choice, 01/11/2023 11:01:01/12/2001/11/2023 COMPL ETE BLOOD COUNT MPV 11.5 fL (9.4-1 2.4) Not Available [facility] (Centralized Electronic Ordering - All Locations) Patient Can Go To The Location Of Their Choice, 01/11/2023 11:01:01/12/2001/11/2023 COMPL ETE BLOOD COUNT automated NRBC 0.0 #/100 _WBC' s Not Available [facility] (Centralized Electronic Ordering - All Locations) Patient Can Go To The Location Of Their Choice, 01/11/2023 11:01:15 01/12/20 23 01/11/2023 COMPL ETE BLOOD COUNT abs. NRBC 0.0 K/mm3 Not Available [facility] (Centralized Electronic Ordering - All Locations) Patient Can Go To The Location Of Their Choice, 01/11/2023 11:01:15 01/12/20 23 01/11/2023 PSA SCREE N PSA 0.3 NG/mL (0-4) TEST PERFO RMED USING THE JEANNE ELECT JEANNE MILLU MINES CENCE TOTAL PSA ASSAY . PSA VALUE S OBTAI ESTRELLITA WITH OTHER ASSAY METHO DS OR KITS CANNO T BE USED INTER YAO EABLY . Not Available [facility] (Centralized Electronic Ordering - All Locations) Patient Can Go To The Location Of Their Choice, 01/11/2023 11:32:11 01/12/2001/11/2023 TSH TSH 2.82 uIU/m L (0.4-4 .2) Not Available [facility] (Centralized Electronic Ordering - All Locations) Patient Can Go To The Location Of Their Choice, 01/11/2023 11:32:13 01/12/2001/11/2023 HEMOG LOBIN A1C hemoglobin A1C 5.4 % (4.0-5 .6) MONIT ORING : In known diabe tic patie nts, hemog lobin A1c targe ts shoul d be discu ssed with healt h care provi avni. DIAGN OSTIC USE: The Ameri can Diabe too Assoc iatio n (ADA) and the World Healt h Organ izati on (WHO) recom mend the use of HbA1c to diagn ose diabe too using a thres hold of 6.5%. Patie nts who have an HbA1c betwe en 5.7% and 6.4% are consi dered at incre ased risk for devel oping diabe too in the futur e. CAUTI ON: False ly low HbA1c resul ts may be obser tia in patie nts with hemol ytic anemi a, homoz ygous forms of abnor mal hemog lobin (e.g. SS, CC, SC), pregn nasim, recen t blood loss or hemog lobin F great er than 7%. Fruct osami ne may be used as an alter marlin test in these cases . REFER ENCE: ADA: Stand ards of Medic al Care in Di[place] 2019, The Journ al of Clini frida and Appli ed Resea [place] [facility] and Educa tion Volum e 43, Suppl ement 1 Not Available [facility] (Centralized Electronic Ordering - All Locations) Patient Can Go To The Location Of Their Choice, 01/11/2023 11:37:07 01/12/2001/11/2023 CK,TO KYLEE ONLY CK,total only 75 U/L (0-310 ) Not Available [facility] (Centralized Electronic Ordering - All Locations) Patient Can Go To The Location Of Their Choice, 01/11/2023 12:05:39 01/12/2001/11/2023 COMPR EHENS RICKY METAB OLIC PANL glucose 111 mg/dL (70-99 ) high Not Available [facility] (Centralized Electronic Ordering - All Locations) Patient Can Go To The Location Of Their Choice, 01/11/2023 12:05:41 01/12/2001/11/2023 COMPR EHENS RICKY METAB OLIC PANL BUN 17 mg/dL (8-23) Not Available [facility] (Centralized Electronic Ordering - All Locations) Patient Can Go To The Location Of Their Choice, 01/11/2023 12:05:41 01/12/2001/11/2023 COMPR EHENS RICKY METAB OLIC PANL creatinine 1.0 mg/dL (0.7-1 .2) Not Available [facility] (Centralized Electronic Ordering - All Locations) Patient Can Go To The Location Of Their Choice, 01/11/2023 12:05:41 01/12/2001/11/2023 COMPR EHENS RICKY METAB OLIC PANL sodium 144 mmol/ L (133-1 45) Not Available [facility] (Centralized Electronic Ordering - All Locations) Patient Can Go To The Location Of Their Choice, 01/11/2023 12:05:41 01/12/2001/11/2023 COMPR EHENS RICKY METAB OLIC PANL potassium 4.3 mmol/ L (3.6-5 .2) Not Available [facility] (Centralized Electronic Ordering - All Locations) Patient Can Go To The Location Of Their Choice, 01/11/2023 12:05:41 01/12/2001/11/2023 COMPR EHENS RICKY METAB OLIC PANL chloride 105 mmol/ L (98-10 7) Not Available [facility] (Centralized Electronic Ordering - All Locations) Patient Can Go To The Location Of Their Choice, 01/11/2023 12:05:41 01/12/2001/11/2023 COMPR EHENS RICKY METAB OLIC PANL bicarbonate 29 mmol/ L (22-29 ) Not Available [facility] (Centralized Electronic Ordering - All Locations) Patient Can Go To The Location Of Their Choice, 01/11/2023 12:05:41 01/12/2001/11/2023 COMPR EHENS RICKY METAB OLIC PANL anion gap 10 (4-17) Not Available [facility] (Centralized Electronic Ordering - All Locations) Patient Can Go To The Location Of Their Choice, 01/11/2023 12:05:41 01/12/2001/11/2023 COMPR EHENS RICKY METAB OLIC PANL albumin 4.4 gm/dL (3.4-4 .8) Not Available [facility] (Centralized Electronic Ordering - All Locations) Patient Can Go To The Location Of Their Choice, 01/11/2023 12:05:41 01/12/2001/11/2023 COMPR EHENS RICKY METAB OLIC PANL calcium 9.4 mg/dL (8.6-1 0.5) Not Available [facility] (Centralized Electronic Ordering - All Locations) Patient Can Go To The Location Of Their Choice, 01/11/2023 12:05:41 01/12/2001/11/2023 COMPR EHENS RICKY METAB OLIC PANL bilirubin,to kylee 0.7 mg/dL (0-1.2 ) Not Available [facility] (Centralized Electronic Ordering - All Locations) Patient Can Go To The Location Of Their Choice, 01/11/2023 12:05:41 01/12/2001/11/2023 COMPR EHENS RICKY METAB OLIC PANL total protein 6.5 gm/dL (6.2-8 .2) Not Available [facility] (Centralized Electronic Ordering - All Locations) Patient Can Go To The Location Of Their Choice, 01/11/2023 12:05:41 01/12/2001/11/2023 COMPR EHENS RICKY METAB OLIC PANL Ag ratio 2.1 Not Available [facility] (Centralized Electronic Ordering - All Locations) Patient Can Go To The Location Of Their Choice, 01/11/2023 12:05:41 01/12/2001/11/2023 COMPR EHENS RICKY METAB OLIC PANL AST 30 U/L (0-40) Not Available [facility] (Centralized Electronic Ordering - All Locations) Patient Can Go To The Location Of Their Choice, 01/11/2023 12:05:41 01/12/2001/11/2023 COMPR EHENS RICKY METAB OLIC PANL alk phos 97 U/L (40-12 9) Not Available [facility] (Centralized Electronic Ordering - All Locations) Patient Can Go To The Location Of Their Choice, 01/11/2023 12:05:41 01/12/2001/11/2023 COMPR EHENS RICKY METAB OLIC PANL ALT 31 U/L (0-41) Not Available [facility] (Centralized Electronic Ordering - All Locations) Patient Can Go To The Location Of Their Choice, 01/11/2023 12:05:41 01/12/2001/11/2023 COMPR EHENS RICKY METAB OLIC PANL estimated GFR creatinine 73 mL/mi n/1.7 3_M2 Creat inine based estim ated glome rular filtr ation (eGFR ) in adult s is calcu lated using the Natio nal Kidne y Found ation recom ilya d 2020 CKD-E PI equat ion. Estim ates GFR from serum creat inine , age and sex. Not Available [facility] (Centralized Electronic Ordering - All Locations) Patient Can Go To The Location Of Their Choice, 01/11/2023 12:05:41 01/12/2001/11/2023 LIPID PANEL cholesterol, total 153 mg/dL (<200) Not Available [facility] ([facility] Order[facility] - All Locations) Patient Can Go To The Location Of Their Choice, 01/11/2023 12:05:43 01/12/2001/11/2023 LIPID PANEL triglyceride 98 mg/dL (<150) Not Available [facility] ([facility] - All Locations) Patient Can Go To The Location Of Their Choice, [id number] 01/11/2023 12:05:43 01/12/2001/11/2023 LIPID PANEL HDL chol 64 mg/dL (>39) Not Available [facility] (Centralized Electronic Ordering - All Locations) Patient Can Go To The Location Of Their Choice, [address] 01/11/2023 12:05:43 01/12/2001/11/2023 LIPID PANEL LDL cholesterol, calculated 69 mg/dL (0-130 ) Not Available [facility] (Centralized Electronic Ordering - All Locations) Patient Can Go To The Location Of Their Choice, [address] 01/11/2023 12:05:43 01/12/2001/11/2023 LIPID PANEL non HDL cholesterol (calc) 89 mg/dL (<160) Not Available [facility] ([facility] Order[facility] - All Locations) Patient Can Go To The Location Of Their Choice, [id number] 01/11/2023 12:05:43 01/12/2001/13/2024 CBC WITH DIFFE RENTI AL/PL ATELE T WBC 8.3 x10e3 /uL 3.4-10 .8 normal Not Available [facility] ([facility]) [address] [place], [address], 01/19/2024 20:59:13 01/12/2001/13/2024 CBC WITH DIFFE RENTI AL/PL ATELE T RBC 5.68 x10e6 /uL 4.14-5 .80 normal Not Available [facility] ([facility]) [address] [place], [address], 01/19/2024 20:59:13 01/12/20 24 01/13/2024 CBC WITH DIFFE RENTI AL/PL ATELE T hemoglobin 16.6 g/dL 13.0-1 7.7 normal Not Available [facility] ([facility]) [address] [place], [address], 01/19/2024 20:59:13 08/02/01/13/2024 CBC WITH DIFFE RENTI AL/PL ATELE T hematocrit 52.2 % 37.5-5 1.0 above high normal Not Available [facility] ([facility]) [address] [place], [address], 01/19/2024 20:59:13 01/12/20 24 01/13/2024 CBC WITH DIFFE RENTI AL/PL ATELE T MCV 92 fL 79-97 normal Not Available [facility] ([facility]) [address] [place], [address], 01/19/2024 20:59:13 01/12/20 24 01/13/2024 CBC WITH DIFFE RENTI AL/PL ATELE T MCH 29.2 pg 26.6-3 3.0 normal Not Available [facility] ([facility]) [address] [place], [address], 01/19/2024 20:59:13 01/12/20 24 01/13/2024 CBC WITH DIFFE RENTI AL/PL ATELE T MCHC 31.8 g/dL 31.5-3 5.7 normal Not Available [facility] ([facility]) [address] [place], [address], 01/19/2024 20:59:13 01/12/20 24 01/13/2024 CBC WITH DIFFE RENTI AL/PL ATELE T RDW 13.2 % 11.6-1 5.4 Not Available [facility] ([facility]) [address] [place], [address], 01/19/2024 20:59:13 01/12/20 24 01/13/2024 CBC WITH DIFFE RENTI AL/PL ATELE T platelets 164 x10e3 /uL 150-45 0 normal Not Available [facility] ([facility]) [address] [place], [address], 01/19/2024 20:59:13 01/12/20 24 01/13/2024 CBC WITH DIFFE RENTI AL/PL ATELE T neutrophils 59 % not estab. normal Not Available [facility] ([facility]) [address] [place], [address], 01/19/2024 20:59:13 01/12/20 24 01/13/2024 CBC WITH DIFFE RENTI AL/PL ATELE T lymphs 30 % not estab. normal Not Available [facility] ([facility]) [address] [facility], [place], [address], 01/19/2024 20:59:13 01/12/20 24 01/13/2024 CBC WITH DIFFE RENTI AL/PL ATELE T monocytes 8 % not estab. normal Not Available [facility] ([facility]) [address] [facility], [place], [address], 01/19/2024 20:59:13 01/12/20 24 01/13/2024 CBC WITH DIFFE RENTI AL/PL ATELE T eos 2 % not estab. normal Not Available [facility] ([facility]) [address] [facility], [place], [address], 01/19/2024 20:59:13 01/12/20 24 01/13/2024 CBC WITH DIFFE RENTI AL/PL ATELE T basos 1 % not estab. normal Not Available [facility] ([facility]) [address] [facility], [place], [address], 01/19/2024 20:59:13 01/12/20 24 01/13/2024 CBC WITH DIFFE RENTI AL/PL ATELE T immature cells [employer] Not Available [facility] ([facility]) [address] [place], [address], 01/19/2024 20:59:13 01/12/20 24 01/13/2024 CBC WITH DIFFE RENTI AL/PL ATELE T neutrophils (absolute) 4.9 x10e3 /uL 1.4-7. 0 normal Not Available [facility] ([facility]) [address] [facility], [place], [address], 01/19/2024 20:59:13 01/12/20 24 01/13/2024 CBC WITH DIFFE RENTI AL/PL ATELE T lymphs (absolute) 2.5 x10e3 /uL 0.7-3. 1 normal Not Available [facility] ([facility]) [address] [facility], [place], [address], 01/19/2024 20:59:13 01/12/20 24 01/13/2024 CBC WITH DIFFE RENTI AL/PL ATELE T monocytes(ab solute) 0.7 x10e3 /uL 0.1-0. 9 normal Not Available [facility] ([facility]) [address] [facility], [place], [address], 01/19/2024 20:59:13 01/12/20 24 01/13/2024 CBC WITH DIFFE RENTI AL/PL ATELE T eos (absolute) 0.1 x10e3 /uL 0.0-0. 4 normal Not Available [facility] ([facility]) [address] [facility], [place], [address], 01/19/2024 20:59:13 01/12/20 24 01/13/2024 CBC WITH DIFFE RENTI AL/PL ATELE T baso (absolute) 0.1 x10e3 /uL 0.0-0. 2 normal Not Available [facility] ([facility]) [address] [place], [address], 01/19/2024 20:59:13 01/12/20 24 01/13/2024 CBC WITH DIFFE RENTI AL/PL ATELE T immature granulocytes 0 % not estab. Not Available [facility] ([facility]) [address] [facility], [place], [address], 01/19/2024 20:59:13 01/12/20 24 01/13/2024 CBC WITH DIFFE RENTI AL/PL ATELE T immature grans (abs) 0.0 x10e3 /uL 0.0-0. 1 Not Available [facility] ([facility]) [address] [facility], [place], [address], 01/19/2024 20:59:13 01/12/20 24 01/13/2024 CBC WITH DIFFE RENTI AL/PL ATELE T NRBC [employer] Not Available [facility] ([facility]) [address] [facility], [place], [address], 01/19/2024 20:59:13 01/12/20 24 01/13/2024 CBC WITH DIFFE RENTI AL/PL ATELE T hematology comments: [employer] Not Available [facility] ([facility]) [address] [facility], [place], [address], 01/19/2024 20:59:13 01/12/20 24 01/12/2024 COMP. METAB OLIC PANEL (14) glucose 86 mg/dL 70-99 normal Not Available [facility] ([facility]) [address] [facility], [place], [address], 01/19/2024 20:59:14 01/12/20 24 01/12/2024 COMP. METAB OLIC PANEL (14) BUN 17 mg/dL 8-27 normal Not Available [facility] ([facility]) [address] [facility], [place], [address], 01/19/2024 20:59:14 01/12/20 24 01/12/2024 COMP. METAB OLIC PANEL (14) creatinine 1.02 mg/dL 0.76-1 .27 normal Not Available [facility] ([facility]) [address] [facility], [place], [address], 01/19/2024 20:59:14 01/12/20 24 01/12/2024 COMP. METAB OLIC PANEL (14) eGFR 74 mL/mi n/1.7 3 >59 normal Not Available [facility] ([facility]) [address] [facility] [place] [place], [address], 01/19/2024 20:59:14 01/12/20 24 01/12/2024 COMP. METAB OLIC PANEL (14) BUN/creatini ne ratio 17 10-24 normal Not Available [facility] ([facility]) [address] [facility] [place], [address], 01/19/2024 20:59:14 01/12/20 24 01/12/2024 COMP. METAB OLIC PANEL (14) sodium 142 mmol/ L 134-14 4 normal Not Available [facility] ([facility]) [address] [facility] [place] [place], [address], 01/19/2024 20:59:14 01/12/20 24 01/12/2024 COMP. METAB OLIC PANEL (14) potassium 4.1 mmol/ L 3.5-5. 2 normal Not Available [facility] ([facility]) [address] [facility], [place], [address], 01/19/2024 20:59:14 01/12/20 24 01/12/2024 COMP. METAB OLIC PANEL (14) chloride 102 mmol/ L 96-106 normal Not Available [facility] ([facility]) [address] [facility] [place], [address], 01/19/2024 20:59:14 01/12/20 24 01/12/2024 COMP. METAB OLIC PANEL (14) carbon dioxide, total 24 mmol/ L 20-29 normal Not Available [facility] ([facility]) [address] [facility] [place], [address], 01/19/2024 20:59:14 01/12/20 24 01/12/2024 COMP. METAB OLIC PANEL (14) calcium 9.3 mg/dL 8.6-10 .2 normal Not Available [facility] ([facility]) [address] [facility] [place] [place], [address], 01/19/2024 20:59:14 01/12/20 24 01/12/2024 COMP. METAB OLIC PANEL (14) protein, total 6.8 g/dL 6.0-8. 5 normal Not Available [facility] ([facility]) [address] [facility], [place], [address], 01/19/2024 20:59:14 01/12/20 24 01/12/2024 COMP. METAB OLIC PANEL (14) albumin 4.3 g/dL 3.7-4. 7 normal Not Available [facility] ([facility]) [address] [place], [address], 01/19/2024 20:59:14 01/12/20 24 01/12/2024 COMP. METAB OLIC PANEL (14) globulin, total 2.5 g/dL 1.5-4. 5 Not Available [facility] ([facility]) [address] [facility] [place], [address], 01/19/2024 20:59:14 01/12/20 24 01/12/2024 COMP. METAB OLIC PANEL (14) bilirubin, total 0.9 mg/dL 0.0-1. 2 normal Not Available [facility] ([facility]) [address] [facility], [place], [address], 01/19/2024 20:59:14 01/12/20 24 01/12/2024 COMP. METAB OLIC PANEL (14) alkaline phosphatase 87 IU/L 44-121 normal Not Available [facility] ([facility]) [address] [facility] [place], [address], 01/19/2024 20:59:14 01/12/20 24 01/12/2024 COMP. METAB OLIC PANEL (14) AST (SGOT) 25 IU/L 0-40 normal Not Available [facility] ([facility]) [address] [facility], [place], [address], 01/19/2024 20:59:14 01/12/20 24 01/12/2024 COMP. METAB OLIC PANEL (14) ALT (SGPT) 21 IU/L 0-44 normal Not Available [facility] ([facility]) [address] [facility] [place] [place], [address], 01/19/2024 20:59:14 01/12/20 24 01/12/2024 LIPID PANEL cholesterol, total 155 mg/dL 100-19 9 normal Not Available [facility] ([facility]) [address] [place], [address], 01/19/2024 20:59:15 01/12/20 24 01/12/2024 LIPID PANEL triglyceride s 90 mg/dL 0-149 normal Not Available [facility] ([facility]) [address] [place], [address], 01/19/2024 20:59:15 01/12/20 24 01/12/2024 LIPID PANEL HDL cholesterol 66 mg/dL >39 normal Not Available [facility] ([facility]) [address] [place], [address], 01/19/2024 20:59:15 01/12/20 24 01/12/2024 LIPID PANEL VLDL cholesterol frida 17 mg/dL 5-40 Not Available [facility] ([facility]) [address] [place], [address], 01/19/2024 20:59:15 01/12/20 24 01/12/2024 LIPID PANEL LDL chol calc ([facility]) 72 mg/dL 0-99 Not Available [facility] ([facility]) [address] [place], [address], 01/19/2024 20:59:15 01/12/20 24 01/12/2024 LIPID PANEL LDL calc comment: [employer] Not Available [facility] ([facility]) [address] [place], [address], 01/19/2024 20:59:15 01/12/2001/19/2024 PROST ATE SPECI FIC ANTIG EN prostate specific antigen 0.346 NG/mL This PSA resul t was deter mined using the Medif[employer] an chemi lumin ometr ic immun oassa y and value s obtai estrellita canno t be evalu ated inter yao eably with diffe rent assay metho ds or kits. This PSA resul t alone canno t be inter prete d as absol javad evide nce of the prese nce or absen ce of disea se. Refer ence Range : >=40y : 97% of contr ols are <4.0. PSA level s have been repor tamera to corre late with prost ate size. Value s >4.0 are commo n in patie nts with prost atic hyper plasi a. Not Available [facility] [address] [facility], [place], [address], 01/19/2024 20:59:16 01/12/2001/13/2024 HEMOG LOBIN A1C hemoglobin A1C 5.6 % 4.8-5. 6 normal Predi abete s: 5.7 - 6.4 Diabe too: >6.4 Glyce angel contr ol for adult s with diabe too: <7.0 Not Available [facility] ([facility]) [address] [facility], [place], [address], 01/19/2024 20:59:16 01/12/2001/12/2024 TSH RFX ON ABNOR MAL TO FREE T4 TSH 3.610 uIU/m L 0.450- 4.500 normal Not Available [facility] ([facility]) [address] [place], [address], 01/19/2024 20:59:17 01/12/20 24 01/13/2024 CREAT INE KALI E,TOT AL creatine kinase,total 53 U/L 30-208 normal Not Available [facility] ([facility]) [address] [place], [address], 01/19/2024 20:59:17 11/14/1911/13/2024 cerum en remov al (PROC ) done by Noemi Not Available In-Office Order Internal Use Only DO Not Attach Compendium DO Not Attach Compendium, Do Not Delete/merge, [id number] 11/13/2024 14:35:36 11/16/1911/16/2024 CBC WITH DIFFE RENTI AL/PL ATELE T WBC 8.2 x10e3 /uL 3.4-10 .8 normal Not Available [facility] ([facility]) [address] [facility], [place], [address], 11/16/2024 06:08:16 11/16/19 25 11/16/2024 CBC WITH DIFFE RENTI AL/PL ATELE T RBC 5.57 x10e6 /uL 4.14-5 .80 normal Not Available [facility] ([facility]) [address] [place], [address], 11/16/2024 06:08:16 11/16/19 25 11/16/2024 CBC WITH DIFFE RENTI AL/PL ATELE T hemoglobin 16.7 g/dL 13.0-1 7.7 normal Not Available [facility] ([facility]) [address] [facility] [place], [address], 11/16/2024 06:08:16 11/16/19 25 11/16/2024 CBC WITH DIFFE RENTI AL/PL ATELE T hematocrit 50.5 % 37.5-5 1.0 normal Not Available [facility] ([facility]) [address] [place], [address], 11/16/2024 06:08:16 11/16/19 25 11/16/2024 CBC WITH DIFFE RENTI AL/PL ATELE T MCV 91 fL 79-97 normal Not Available [facility] ([facility]) [address] [place], [address], 11/16/2024 06:08:16 11/16/19 25 11/16/2024 CBC WITH DIFFE RENTI AL/PL ATELE T MCH 30.0 pg 26.6-3 3.0 normal Not Available [facility] ([facility]) [address] [facility], [place], [address], 11/16/2024 06:08:16 11/16/19 25 11/16/2024 CBC WITH DIFFE RENTI AL/PL ATELE T MCHC 33.1 g/dL 31.5-3 5.7 normal Not Available [facility] ([facility]) [address] [facility], [place], [address], 11/16/2024 06:08:16 11/16/19 25 11/16/2024 CBC WITH DIFFE RENTI AL/PL ATELE T RDW 13.2 % 11.6-1 5.4 Not Available [facility] ([facility]) [address] [facility] [place], [address], 11/16/2024 06:08:16 11/16/19 25 11/16/2024 CBC WITH DIFFE RENTI AL/PL ATELE T platelets 177 x10e3 /uL 150-45 0 normal Not Available [facility] ([facility]) [address] [facility], [place], [address], 11/16/2024 06:08:16 11/16/19 25 11/16/2024 CBC WITH DIFFE RENTI AL/PL ATELE T neutrophils 60 % not estab. normal Not Available [facility] ([facility]) [address] [facility], [place], [address], 11/16/2024 06:08:16 11/16/19 25 11/16/2024 CBC WITH DIFFE RENTI AL/PL ATELE T lymphs 27 % not estab. normal Not Available [facility] ([facility]) [address] [facility], [place], [address], 11/16/2024 06:08:16 11/16/19 25 11/16/2024 CBC WITH DIFFE RENTI AL/PL ATELE T monocytes 9 % not estab. normal Not Available [facility] ([facility]) [address] [place], [address], 11/16/2024 06:08:16 11/16/19 25 11/16/2024 CBC WITH DIFFE RENTI AL/PL ATELE T eos 3 % not estab. normal Not Available [facility] ([facility]) [address] [place], [address], 11/16/2024 06:08:16 11/16/19 25 11/16/2024 CBC WITH DIFFE RENTI AL/PL ATELE T basos 1 % not estab. normal Not Available [facility] ([facility]) [address] [facility], [place], [address], 11/16/2024 06:08:16 11/16/19 25 11/16/2024 CBC WITH DIFFE RENTI AL/PL ATELE T immature cells [employer] Not Available [facility] ([facility]) [address] [place], [address], 11/16/2024 06:08:16 11/16/19 25 11/16/2024 CBC WITH DIFFE RENTI AL/PL ATELE T neutrophils (absolute) 4.9 x10e3 /uL 1.4-7. 0 normal Not Available [facility] ([facility]) [address] [place], [address], 11/16/2024 06:08:16 11/16/19 25 11/16/2024 CBC WITH DIFFE RENTI AL/PL ATELE T lymphs (absolute) 2.2 x10e3 /uL 0.7-3. 1 normal Not Available [facility] ([facility]) [address] [place], [address], 11/16/2024 06:08:16 11/16/19 25 11/16/2024 CBC WITH DIFFE RENTI AL/PL ATELE T monocytes(ab solute) 0.7 x10e3 /uL 0.1-0. 9 normal Not Available [facility] ([facility]) [address] [place], [address], 11/16/2024 06:08:16 11/16/19 25 11/16/2024 CBC WITH DIFFE RENTI AL/PL ATELE T eos (absolute) 0.2 x10e3 /uL 0.0-0. 4 normal Not Available [facility] ([facility]) [address] [facility], [place], [address], 11/16/2024 06:08:16 11/16/19 25 11/16/2024 CBC WITH DIFFE RENTI AL/PL ATELE T baso (absolute) 0.1 x10e3 /uL 0.0-0. 2 normal Not Available [facility] ([facility]) [address] [place], [address], 11/16/2024 06:08:16 11/16/19 25 11/16/2024 CBC WITH DIFFE RENTI AL/PL ATELE T immature granulocytes 0 % not estab. Not Available [facility] ([facility]) [address] [place], [address], 11/16/2024 06:08:16 11/16/19 25 11/16/2024 CBC WITH DIFFE RENTI AL/PL ATELE T immature grans (abs) 0.0 x10e3 /uL 0.0-0. 1 Not Available [facility] ([facility]) [address] [place], [address], 11/16/2024 06:08:16 11/16/19 25 11/16/2024 CBC WITH DIFFE RENTI AL/PL ATELE T NRBC [employer] Not Available [facility] ([facility]) [address] [facility], [place], [address], 11/16/2024 06:08:16 11/16/19 25 11/16/2024 CBC WITH DIFFE RENTI AL/PL KASH T hematology comments: [employer] Not Available [facility] ([facility]) [address] [facility] [place], [address], 11/16/2024 06:08:16 11/16/19 25 11/15/2024 COMP. METAB OLIC PANEL (14) glucose 99 mg/dL 70-99 normal Not Available [facility] ([facility]) [address] [facility] [place] [place], [address], 11/16/2024 06:08:17 11/16/19 25 11/15/2024 COMP. METAB OLIC PANEL (14) BUN 23 mg/dL 8-27 normal Not Available [facility] ([facility]) [address] [facility] [place] [place], [address], 11/16/2024 06:08:17 11/16/19 25 11/15/2024 COMP. METAB OLIC PANEL (14) sodium 142 mmol/ L 134-14 4 normal Not Available [facility] ([facility]) [address] [facility] [place] [place], [address], 11/16/2024 06:08:17 11/16/19 25 11/15/2024 COMP. METAB OLIC PANEL (14) potassium 4.3 mmol/ L 3.5-5. 2 normal Not Available [facility] ([facility]) [address] [facility] [place], [address], 11/16/2024 06:08:17 11/16/19 25 11/15/2024 COMP. METAB OLIC PANEL (14) chloride 101 mmol/ L 96-106 normal Not Available [facility] ([facility]) [address] [facility] [place], [address], 11/16/2024 06:08:17 11/16/19 25 11/15/2024 COMP. METAB OLIC PANEL (14) carbon dioxide, total 21 mmol/ L 20-29 normal Not Available [facility] ([facility]) [address] [facility] [place], [address], 11/16/2024 06:08:17 11/16/19 25 11/15/2024 COMP. METAB OLIC PANEL (14) calcium 9.2 mg/dL 8.6-10 .2 normal Not Available [facility] ([facility]) [address] [facility] [place], [address], 11/16/2024 06:08:17 11/16/19 25 11/15/2024 COMP. METAB OLIC PANEL (14) albumin 4.4 g/dL 3.7-4. 7 normal Not Available [facility] ([facility]) [address] [facility] [place], [address], 11/16/2024 06:08:17 11/16/19 25 11/15/2024 COMP. METAB OLIC PANEL (14) AST (SGOT) 25 IU/L 0-40 normal Not Available [facility] ([facility]) [address] [facility] [place] [place], [address], 11/16/2024 06:08:17 11/16/19 25 11/15/2024 COMP. METAB OLIC PANEL (14) ALT (SGPT) 23 IU/L 0-44 normal Not Available [facility] ([facility]) [address] [facility] [place], [address], 11/16/2024 06:08:17 11/16/19 25 11/16/2024 COMP. METAB OLIC PANEL (14) creatinine 0.99 mg/dL 0.76-1 .27 normal Not Available [facility] ([facility]) [address] [facility] [place] [place], [address], 11/16/2024 06:08:17 11/16/19 25 11/16/2024 COMP. METAB OLIC PANEL (14) eGFR 76 mL/mi n/1.7 3 >59 normal Not Available [facility] ([facility]) [address] [facility] [place] [place], [address], 11/16/2024 06:08:17 11/16/19 25 11/16/2024 COMP. METAB OLIC PANEL (14) BUN/creatini ne ratio 23 10-24 normal Not Available [facility] ([facility]) [address] [facility] [place], [address], 11/16/2024 06:08:17 11/16/19 25 11/16/2024 COMP. METAB OLIC PANEL (14) protein, total 6.8 g/dL 6.0-8. 5 normal Not Available [facility] ([facility]) [address] [facility] [place], [address], 11/16/2024 06:08:17 11/16/19 25 11/16/2024 COMP. METAB OLIC PANEL (14) globulin, total 2.4 g/dL 1.5-4. 5 Not Available [facility] ([facility]) [address] [facility] [place], [address], 11/16/2024 06:08:17 11/16/19 25 11/16/2024 COMP. METAB OLIC PANEL (14) bilirubin, total 0.8 mg/dL 0.0-1. 2 normal Not Available [facility] ([facility]) [address] [facility] [place], [address], 11/16/2024 06:08:17 11/16/19 25 11/16/2024 COMP. METAB OLIC PANEL (14) alkaline phosphatase 97 IU/L 44-121 normal Not Available [facility] ([facility]) [address] [facility] [place] [place], [address], 11/16/2024 06:08:17 11/16/19 25 11/16/2024 LIPID PANEL cholesterol, total 145 mg/dL 100-19 9 normal Not Available [facility] ([facility]) [address] [facility] [place], [address], 11/16/2024 06:08:17 11/16/19 25 11/16/2024 LIPID PANEL triglyceride s 97 mg/dL 0-149 normal Not Available [facility] ([facility]) [address] [place], [address], 11/16/2024 06:08:17 11/16/19 25 11/16/2024 LIPID PANEL HDL cholesterol 59 mg/dL >39 normal Not Available [facility] ([facility]) [address] [place], [address], 11/16/2024 06:08:17 11/16/19 25 11/16/2024 LIPID PANEL VLDL cholesterol frida 18 mg/dL 5-40 Not Available [facility] ([facility]) [address] [place], [address], 11/16/2024 06:08:17 11/16/19 25 11/16/2024 LIPID PANEL LDL chol calc ([facility]) 68 mg/dL 0-99 Not Available [facility] ([facility]) [address] [place], [address], 11/16/2024 06:08:17 11/16/19 25 11/16/2024 LIPID PANEL LDL calc comment: [employer] Not Available [facility] ([facility]) [address] [place], [address], 11/16/2024 06:08:17 11/16/19 25 11/16/2024 HEMOG LOBIN A1C hemoglobin A1C 5.7 % 4.8-5. 6 above high normal Predi abete s: 5.7 - 6.4 Diabe too: >6.4 Glyce angel contr ol for adult s with diabe too: <7.0 Not Available [facility] ([facility]) [address] [place], [address], 11/16/2024 06:08:18 11/16/19 25 11/16/2024 TSH RFX ON ABNOR MAL TO FREE T4 TSH 2.950 uIU/m L 0.450- 4.500 normal Not Available [facility] ([facility]) [address] [facility] [place], [address], 11/16/2024 06:08:19 11/16/19 25 11/15/2024 BASIC METAB OLIC PANEL (8) glucose 99 mg/dL 70-99 normal Not Available [facility] ([facility]) [address] [facility] [place], [address], 11/16/2024 06:08:22 11/16/19 25 11/15/2024 BASIC METAB OLIC PANEL (8) BUN 24 mg/dL 8-27 normal Not Available [facility] ([facility]) [address] [facility] [place], [address], 11/16/2024 06:08:22 11/16/19 25 11/15/2024 BASIC METAB OLIC PANEL (8) creatinine 0.96 mg/dL 0.76-1 .27 normal Not Available [facility] ([facility]) [address] [place], [address], 11/16/2024 06:08:22 11/16/19 25 11/15/2024 BASIC METAB OLIC PANEL (8) eGFR 79 mL/mi n/1.7 3 >59 normal Not Available [facility] ([facility]) [address] [place], [address], 11/16/2024 06:08:22 11/16/19 25 11/15/2024 BASIC METAB OLIC PANEL (8) BUN/creatini ne ratio 25 10-24 above high normal Not Available [facility] ([facility]) [address] [place], [address], 11/16/2024 06:08:22 11/16/19 25 11/15/2024 BASIC METAB OLIC PANEL (8) sodium 142 mmol/ L 134-14 4 normal Not Available [facility] ([facility]) [address] [place], [address], 11/16/2024 06:08:22 11/16/19 25 11/15/2024 BASIC METAB OLIC PANEL (8) potassium 4.2 mmol/ L 3.5-5. 2 normal Not Available [facility] ([facility]) [address] [facility] [place], [address], 11/16/2024 06:08:22 11/16/19 25 11/15/2024 BASIC METAB OLIC PANEL (8) chloride 102 mmol/ L 96-106 normal Not Available [facility] ([facility]) [address] [place], [address], 11/16/2024 06:08:22 11/16/19 25 11/15/2024 BASIC METAB OLIC PANEL (8) carbon dioxide, total 20 mmol/ L 20-29 normal Not Available [facility] ([facility]) [address] [place], [address], 11/16/2024 06:08:22 11/16/19 25 11/15/2024 BASIC METAB OLIC PANEL (8) calcium 9.2 mg/dL 8.6-10 .2 normal Not Available [facility] ([facility]) [address] [place], [address], 11/16/2024 06:08:22 11/16/19 25 11/16/2024 TSH RFX ON ABNOR MAL TO FREE T4 TSH 2.920 uIU/m L 0.450- 4.500 normal Not Available [facility] ([facility]) [address] [place], [address], 11/16/2024 06:08:23 05/16/20 22 05/10/2022 trans -thor acic echoc ardio gram (TTE) (PROC ) No observ ation record ed. [facility] Cardiology Diagnostic Testing [address] [facility], [place], [address], 06/01/2022 10:01:55 11/14/19 24 10/23/2023 trans -thor acic echoc ardio gram (TTE) (PROC ) No observ ation record ed. [facility] Cardiology Diagnostic Testing [address], [place], [address], 01/10/2024 11:04:18 12/19/19 24 12/19/2023 CT, abdom en + pelvi s, w/o contr ast No observ ation record ed. [facility] (Medical Records) [address] [place], [address], 01/10/2024 11:04:18 12/27/19 24 12/27/2023 US, retro perit oneum , compl ete No observ ation record ed. [facility] (Medical Records) [address] [place], [address], 01/10/2024 11:04:18 02/15/[address], abdom en + pelvi s, w/o contr ast No observ ation record ed. [facility] (Medical Records) [address] [place], [address], 04/30/2024 09:15:15 04/30/20 24 04/30/2024 XR, cervi frida spine No observ ation record ed. [facility] [address] [place], [address], 11/13/2024 14:16:12 04/30/20 24 04/30/2024 XR, cervi frida spine , 4 or 5 view Cervic al Spine 4 or 5 Views Reason : radicu lopath y COMPAR SANDY: None. FINDIN GS: No bone lesion s or fractu res. Normal odonto id and C1/2 relati onship . There is cervic al straig htenin g with multil evel disc space narrow ing and margin al osteop hyte format ion. There is scatte red uncove rtebra l joint and facet arthro meche, the latter most pronou nced at C3-C4 on the right side result ing in signif icant neural forami nal encroa chment . A lesser degree of neural forami nal narrow ing is presen t bilate rally from C4-C5 throug h C6-C7. Normal prever tebral soft tissue s and clear lung apices . IMPRES JUAN: Multil evel cervic al spondy losis with varyin g degree s of neural forami nal narrow ing, most pronou nced at 3-C4 on the right. WSN: [id number] Orderi ng Physic tommy: Fabrizio Gonsalves Dictat ed By: Rogerio cordero MD, Shagufta Stiles Dictat ed Date/T aleida: 3:08 pm Review ed By: Rogerio cordero MD, Shagufta Stiles Signed By: Rogerio cordero MD, Shagufta Stiles Signed Date/T aleida: 3:08 pm Transc ribed By: CSB Transc ribed Date/T aleida: 3:05 pm Patien t Class: Outpat ient [facility] (Outpt Imaging) [address], [place], [address], 11/13/2024 14:16:12 11/20/19 25 11/19/2024 luisito CAMACHO No observ ation record ed. [facility] (Medical Records) [address] [place], [address], 11/19/2024 17:55:12 11/26/19 25 11/25/2024 ECG 12-le ad No observ ation record ed. [facility] [address] [place], [address], 11/25/2024 20:46:12 11/26/19 ECG 12-le ad No observ ation record ed. [facility] [address] [place], [address], 11/25/2024 20:46:13 Result Notes Documentation Provider Name and Address Organization Details Recorded Time Xr, Cervical Spine, 4 Or 5 View : Cervical Spine 4 or 5 Views Reason: radiculopathy COMPARISON: None. FINDINGS: No bone lesions or fractures. Normal odontoid and C1/2 relationship. There is cervical straightening with multilevel disc space narrowing and marginal osteophyte formation. There is scattered uncovertebral joint and facet arthropathy, the latter most pronounced at C3-C4 on the right side resulting in significant neural foraminal encroachment. A lesser degree of neural foraminal narrowing is present bilaterally from C4-C5 through C6-C7. Normal prevertebral soft tissues and clear lung apices. IMPRESSION: Multilevel cervical spondylosis with varying degrees of neural foraminal narrowing, most pronounced at 3-C4 on the right. WSN: [id number] Ordering Physician: Marcello Gonsalves Dictated By: Jase Chauhan MD Dictated Date/Time: 04/30/24 3:08 pm Reviewed By: Jase Chauhan MD Signed By: Jase Chauhan MD Signed Date/Time: 04/30/24 3:08 pm Transcribed By: LEELA Transcribed Date/Time: 04/30/24 3:05 pm Patient Class: Outpatient Marcello Gonsalves PA-C [address] [facility] [address], [place], [address], [facility] 11/13/2024 14:16:12 Problems Name Problem SNOMED Code Status Onset Date Resolution Date Notes Provider Name and Address Organization Details Recorded Time Atrial fibrilla tion 90045528 Active 2013 Not Available [facility] 1 07:07:10 Hyperpla ivon of prostate 981250131 Completed 201304/30/2024 Marcello Gonsalves PA-C [address], [place], [address] , [facility] 4 09:21:03 Cataract [id number] Completed 201212/31/2013 RECORDED 11/30/19 13 9:27AM BY VILLA WATTERS MA, ANNOTATI ON/[facility] 5 09:07:33 Chest pain 30188647 Completed 201212/31/2013 RECORDED 11/30/19 13 9:26AM BY VILLA WATTERS MA, ANNOTATI ON/ADDEN DUM Timo D'Alessand ro null, [facility] 5 09:07:33 Closed fracture of foot 139921925 Completed 200812/31/2013 IMPRESSI ON: RIGHT; RECORDED 01/15/20 09 8:47AM BY WINNIE CHRISTOPHER, BENNYATI ON/ADDEN DUM Timo D'Alessand ro null, [facility] 5 09:07:33 Screenin g for malignan t neoplasm of colon Completed 201212/31/2013 RECORDED 11/30/19 13 9:26AM BY VILLA WATTERS MA, ANNOTATI ON/ADDEN DUM Timo D'Alessand ro null, [facility] 5 09:07:33 Diarrhea 31282922 Completed 201212/31/2013 RECORDED 11/30/19 13 9:26AM BY VILLA WATTERS MA, ANNOTATI ON/ADDEN DUM Timo D'Alessand ro null, [facility] 5 09:07:33 Respirat ory finding 992655212 Completed 200812/31/2013 RECORDED 04/07/20 09 11:38AM BY WINNIE CHRISTOPHER, BENNYATI ON/ADDEN DUM Timo D'Alessand ro null, [facility] 5 09:07:33 Elevated blood-pr essure reading without diagnosi s of hyperten juan 111208057 Completed 201306/02/2016 RECORDED 11/12/19 14 9:17AM BY VILLA WATTERS MA, OFFICE VISIT Eveline blakely, [facility] 6 09:52:15 Urinary tract obstruct ion 4060437 Completed 201212/31/2013 RECORDED 11/30/19 13 9:26AM BY VILLA WATTERS MA, ANNOTSTEFANY ON/ADDEN DUM Timo D'Alessand ro null, [facility] 5 09:07:33 Benign prostati c hyperpla ivon 328060272 Active 2012 Not Available [facility] 07:07:10 Lower urinary tract symptoms 913119317 Completed 201206/02/2016 RECORDED 11/30/19 13 9:26AM BY VILLA WATTERS MA, BENNYATI ON/ADDEN DUM Eveline blakely [facility] 6 09:52:01 Gastroes ophageal reflux disease 669117559 Active 2013 Not Available [facility] 07:07:10 Influenz a vaccine needed 04349388974 06 Completed 200812/31/2013 DATE: 02/18/20 09; RECORDED 11/30/19 13 9:26AM BY VILLA WATTERS MA, GALLO ON/ADDEN DUM Timo blakely [facility] 5 09:07:33 Adult health examinat ion Completed 201211/09/2014 STORY: COLONOSC OPY DUE 2021/NICKIE CHAVEZ; RECORDED 11/30/19 13 9:59AM BY TIMO MALDONADO MD, OFFICE VISIT Timo blakely [facility] 5 09:07:33 Follow-u p encounte r Completed 201212/31/2013 RECORDED 11/30/19 13 9:27AM BY VILLA WATTERS MA, ANNOTATI ON/[facility] Timo blakely 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 5 09:07:33 Nonvenom ous insect bite of multiple sites 234184079 Completed 201212/31/2013 IMPRESSI ON: L FOREARM; RECORDED 11/30/19 13 9:27AM BY VILLA WATTERS MA, GALLO ON/ADDEN DUM Timo Youngand ro null, [facility] 5 09:07:33 Malaise and fatigue 716647778 Completed 201212/31/2013 RECORDED 11/30/19 13 9:27AM BY VILLA WATTERS MA, GALLO ON/ADDEN DUM Timo CabelloAleajand ro null, [facility] 5 09:07:33 Patient status finding 410691523 Completed 201311/09/2014 RECORDED 11/12/19 14 9:18AM BY VILLA WATTERS MA, OFFICE VISIT Timo Soto ro null, [facility] 5 09:07:33 Radiolog y result abnormal 398387647 Completed 201212/31/2013 RECORDED 11/30/19 13 9:27AM BY VILLA WATTERS MA, GALLO ON/ADDEN DUM Timo Soto ro null, [facility] 5 09:07:33 Open wound of lateral abdomina l wall 358703305 Completed 200812/31/2013 RECORDED 01/15/20 09 8:47AM BY GALLO CHAU ON/ADDEN DUM Timo Soto ro null, [facility] 5 09:07:33 Joint pain in ankle and foot Completed 200812/31/2013 RECORDED 04/07/20 09 11:38AM BY GALLO CHAU ON/ADDEN DUM Timo D'Alessand ro null, [facility] 5 09:07:33 Palpitat ions 64583035 Completed 200812/31/2013 IMPRESSI ON: BRIEF, EKG WITH FIRST DEGREE AV BLOCK, NO SNCOPE OR DIZZINES S, DO LABS AND STRESS ECHO; RECORDED 04/07/20 09 11:38AM BY GALLO CHAU ON/ADDEN DUM Timo Hui'Alessand ro null, [facility] 5 09:07:33 Pre-surg jarad evaluati on Completed 201212/31/2013 RECORDED 11/30/19 13 9:27AM BY VILLA WATTERS MA, BENNYATI ON/ADDEN DUM Timo Heide'Alessand ro null, [facility] 5 09:07:33 Adult health examinat ion Completed 201212/31/2013 RECORDED 11/30/19 13 9:26AM BY VILLA WATTERS MA, BENNYATI ON/ADDEN DUM Timo D'Alessand ro null, [facility] 5 09:07:33 Inflamma tory disease of mucous membrane 89510927 Completed 201212/31/2013 RECORDED 11/30/19 13 9:27AM BY VILLA WATTERS MA, ANNOTATI ON/ADDEN DUM Timo D'Alessand ro null, [facility] 5 09:07:33 Cataract 181188657 Completed 201201/20/2014 RECORDED 11/30/19 13 9:27AM BY VILLA WATTERS MA, ANNOTATI ON/ADDEN DUM Timo D'Alessand ro null, [facility] 5 09:07:33 Chest pain 81804888 Completed 201201/20/2014 RECORDED 11/30/19 13 9:26AM BY VILLA WATTERS MA, ANNOTATI ON/ADDEN DUM Timo D'Alessand ro null, [facility] 5 09:07:33 Closed fracture of foot 749080295 Completed 200801/20/2014 IMPRESSI ON: RIGHT; RECORDED 01/15/20 09 8:47AM BY WINNIE CHRISTOPHER, BENNYATI ON/ADDEN DUM Timo D'Alessand ro null, [facility] 5 09:07:33 Screenin g for malignan t neoplasm of colon Completed 201201/20/2014 RECORDED 11/30/19 13 9:26AM BY VILLA WATTERS MA, GALLO ON/ADDEN DUM Timo D'Alessand ro null, [facility] 5 09:07:33 Diarrhea 31592892 Completed 201201/20/2014 RECORDED 11/30/19 13 9:26AM BY VILLA WATTERS MA, ANNOTATI ON/ADDEN DUM Timo D'Alessand ro null, [facility] 5 09:07:33 Respirat ory finding 236189790 Completed 200801/20/2014 RECORDED 04/07/20 09 11:38AM BY WINNIE CHRISTOPHER, GALLO ON/ADDEN DUM Timo D'Alessand ro null, [facility] 5 09:07:33 Urinary tract obstruct ion 2658424 Completed 201201/20/2014 RECORDED 11/30/19 13 9:26AM BY VILLA WATTERS MA, BENNYATI ON/ADDEN DUM Timo D'Alessand ro null, [facility] 5 09:07:33 Influenz a vaccine needed 25554180413 06 Completed 200801/20/2014 DATE: 02/18/20 09; RECORDED 11/30/19 13 9:26AM BY VILLA WATTERS MA, GALLO ON/ADDEN DUM Timo D'Alessand ro null, [facility] 5 09:07:33 Adult health examinat ion Completed 201301/20/2014 STORY: COLONOSC OPY DUE 2021/NICKIE CHAVEZ; RECORDED 11/12/19 14 9:16AM BY VILLA WATTERS MA, GALLO ON/ADDEN DUM Timo D'Alessand ro null, [facility] 5 09:07:33 Follow-u p encounte r Completed 201201/20/2014 RECORDED 11/30/19 13 9:27AM BY VILLA WATTERS MA, BENNYATI ON/ADDEN DUM Timo Heide'Alessand ro null, [facility] 5 09:07:33 Injury of lumbosac ral plexus 29288699 Completed 200801/20/2014 RECORDED 01/15/20 09 8:47AM BY BENNY CHAUATI ON/ADDEN DUM Timo D'Alessand ro null, [facility] 5 09:07:33 Nonvenom ous insect bite of multiple sites 829320031 Completed 201201/20/2014 IMPRESSI ON: L FOREARM; RECORDED 11/30/19 13 9:27AM BY VILLA WATTERS MA, GALLO ON/ADDEN DUM Timo D'Alessand ro null, [facility] 5 09:07:33 Malaise and fatigue 580073405 Completed 201201/20/2014 RECORDED 11/30/19 13 9:27AM BY VILLA WATTERS MA, GALLO ON/ADDEN DUM Timo D'Alessand ro null, [facility] 5 09:07:33 Radiolog y result abnormal [id number] Completed 201201/20/2014 RECORDED 11/30/19 13 9:27AM BY VILLA WATTERS MA, GALLO ON/ADDEN DUM Timo D'Alessand ro null, [facility] 5 09:07:33 Open wound of lateral abdomina l wall 879399999 Completed 200801/20/2014 RECORDED 01/15/20 09 8:47AM BY [facility] Timo CabelloAlessand ro null, [facility] 5 09:07:33 Joint pain in ankle and foot Completed 200801/20/2014 RECORDED 04/07/20 09 11:38AM BY BENNY [facility]AUATI ON/[facility] Timo CabelloAlessand ro null, [facility] 5 09:07:33 Palpitat ions 49810854 Completed 200801/20/2014 IMPRESSI ON: BRIEF, EKG WITH FIRST DEGREE AV BLOCK, NO SNCOPE OR DIZZINES S, DO LABS AND STRESS ECHO; RECORDED 04/07/20 09 11:38AM BY GALLO CHAU ON/[facility] ZOILA CabelloAleajand ro null, [facility] 5 09:07:33 Pre-surg jarad evaluati on Completed 201201/20/2014 RECORDED 11/30/19 13 9:27AM BY VILLA WATTERS MA, GALLO ON/[facility] Timo CabelloAleajand ro null, [facility] 5 09:07:33 Inflamma tory disease of mucous membrane 80078275 Completed 201201/20/2014 RECORDED 11/30/19 13 9:27AM BY VILLA WATTERS MA, GALLO ON/[facility] Timo CabelloAleophelia ro null, [facility] 5 09:07:33 Body mass index 40+ - severely obese 979046720 Active Not Available [facility] 1 07:07:10 Degenera tion of lumbar interver tebral disc 07069965 Active 2013 Not Available [facility] 1 07:07:10 Knee pain Completed 06/02/2016 Eveline blakely, [facility] 6 09:51:58 Dependen ce on continuo us positive airway pressure ventilat ion 586146263 Active 2017 Not Available [facility] 1 07:07:10 Sonal l hyperten juan 07603736 Active 2019 Not Available [facility] 1 07:07:10 Numbness of foot 244571571 Completed 202101/08/2023 Marcello Gonsalves PA-C [address] [facility] [address], [place], [address] , [facility] 3 13:16:55 Prediabe too 344624970 Active 2021 Marcello Gonsalves PA-C [address] [facility] [address], [place], [address] , [facility] 2 17:29:55 Feeling of lump in throat 987228424 Completed 202101/08/2023 Marcello Gonsalves PA-C [address] [facility] [address], [place], [address] , [facility] 3 13:16:19 Venous stasis ulcer with edema of left lower leg 75194130105 459770 Active 2022 Marcello Gonsalves PA-C [address] [facility] [address], [place], [address] , [facility] 3 13:12:29 Constipa tion 11568130 Active 2022 Marcello Gonsalves PA-C [address] [facility] [address], [place], [address] , [facility] 3 13:12:49 Kidney stone 61361062 Completed 202304/30/2024 Marcello Gonsalves PA-C [address] [facility] [address], [place], [address] , [facility] 4 09:20:48 History of calculus of kidney 366629920 Active 2023 Marcello Gonsalves PA-C [address] [facility] [address], [place], [address] , [facility] 4 09:17:55 Obstruct ricky sleep apnea syndrome 18644102 Active 2023 Marcello Gonsalves PA-C [address] [facility] [address], [place], [address] , [facility] 4 09:24:16 Cervical radiculo meche 34411972 Active 2023 Marcello Gonsalves PA-C [address] [facility] [address], [place], [address] , [facility] 4 09:36:13 Problem Notes None recorded. Procedures Surgical History Date Name Laterality Status Provider Name and Address Organization Details Recorded Time 10/22/19 23 Colonoscopy completed Kirstin Wheeler [facility] 01/11/2024 10:52:25 03/30/20 20 Six-Item Cognitive Test completed Lisy Sands MA [facility] 03/30/2020 10:06:12 11/29/19 19 Mini-Cog Test completed Noemi Carranza MA [facility] 11/28/2018 09:35:49 11/24/19 18 Mini-Cog Test completed Yumiko dugan MA [facility] 11/23/2017 09:31:34 06/02/20 16 Fall Risk Assessment completed Eveline Seth MA [facility] 06/02/2016 10:04:29 06/02/20 16 Mini-Cog Test completed Eveline Seth MA [facility] 06/02/2016 10:04:37 05/26/20 15 Fall Risk Assessment completed Alex Peterson [facility] 05/26/2015 09:00:41 05/26/20 15 Mini-Cog Test completed Alex Peterson [facility] 05/26/2015 09:00:41 05/23/20 14 Fall Risk Assessment completed Lore Shi [facility] 05/23/2014 11:01:08 05/23/20 14 Mini-Cog Test completed Lore Revere [facility] 05/23/2014 11:01:08 08/11/19 08 Unlisted px foot/toes completed Yumiko dugan [facility] 11/23/2017 09:18:41 06/12/18 49 Tonsillectomy completed Nathaly Danielle [facility] 12/01/2021 09:23:46 Imaging Results None recorded. Procedure Notes None recorded. Medical Equipment None Reported. Allergies No known drug allergies Medications Name Sig Start Date Stop Date Status Note LastModified by Organization Details LastModified Time Augmentin 875 mg-125 mg tablet Take 1 tablet every 12 hours by oral route for 7 days. 11/23 completed Not Available Not Available Not Available acetamino phen 325 mg tablet TAKE 1 TABLET BY MOUTH EVERY 4 HOURS NEEDED FOR PAIN active Not Available Not Available No t Available cefuroxim e axetil 250 mg tablet TAKE 1 TABLET BY MOUTH TWICE A DAY FOR 7 DAYS 01/09 completed Not Available Not Available Not Available atorvasta tin 10 mg tablet TAKE 1 TABLET BY MOUTH EVERY DAY active Not Available Not Available No t Available diltiazem CD 180 mg capsule,e xtended release 24 hr TAKE 1 CAPSULE BY MOUTH EVERY DAY active Not Available Not Available No t Available amiodaron e 200 mg tablet Take 1 tablet every day by oral route as directed for 30 days. 10/17 completed Not Available Not Available Not Available Orabase-B 20 % mucosal paste FOUR TIMES DAILY 01/06 completed RECORDED 01/07/20 11 8:56AM BY GALLO MARY ON/ELA CUMMINGS; Not Available Not Available Not Available Keflex 500 mg capsule Take 1 capsule 3 times a day by oral route. 11/28 completed Not Available Not Available Not Available prednison e 20 mg tablet TAKE 1 TABLET BY MOUTH EVERY DAY 20 MG ORALLY DAILY FOR 4 DAYS 01/09 completed Not Available Not Available Not Available simvastat in 10 mg tablet TAKE 1 TABLET BY MOUTH EVERY DAY 06/20 completed Not Available Not Available Not Available thiamine HCl (vitamin B1) 100 mg tablet Take 1 tablet every day by oral route. 01/04 completed Not Available Not Available Not Available simvastat in 40 mg tablet AT BEDTIME 12/01 completed RECORDED 12/02/19 12 4:47PM BY TIMO MALDONADO MD, ANNOTATI ON/ELA CUMMINGS; Not Available Not Available Not Available levothyro xine 75 mcg tablet TAKE 1 TABLET BY MOUTH EVERY DAY DIRECTED active Not Available Not Available No t Available Aleve 220 mg tablet Take 1 tablet every 12 hours by oral route as needed. 10/12 completed Not Available Not Available Not Available tamsulosi n 0.4 mg capsule TAKE 1 CAPSULE BY MOUTH EVERY DAY active Not Available Not Available No t Available Synthroid 25 mcg tablet DAILY active Not Available Not Available Not Available levothyro xine 50 mcg tablet TAKE 1 TABLET BY MOUTH DAILY 11/27 completed Not Available Not Available Not Available hydrocodo ne 7.5 mg-acetam inophen 325 mg tablet 11/28 completed Not Available Not Available Not Available simvastat in 20 mg tablet 1 tab po qhs 09/23 completed Not Available Not Available Not Available Guaifenes in AC 10 mg-100 mg/5 mL oral liquid Take 10 mL every day by oral route at bedtime for 5 days. 10/17 completed Not Available Not Available Not Available metoprolo l tartrate 50 mg tablet TWO TIMES DAILY 10/02 completed RECORDED 10/03/19 12 10:15AM BY LORE SHI MA, OFFICE VISIT; Not Available Not Available Not Available hydrochlo rothiazid e 12.5 mg capsule TAKE 1 CAPSULE BY MOUTH EVERY DAY active Not Available Not Available No t Available omeprazol e 20 mg capsule,d elayed release TAKE 1 CAPSULE BY MOUTH EVERY DAY active Not Available Not Available No t Available diltiazem CD 120 mg capsule,e xtended release 24 hr Take 1 capsule every day by oral route. 03/30 completed Not Available Not Available Not Available morphine 15 mg immediate release tablet TAKE 1 TABLET BY MOUTH EVERY 6 HOURS NEEDED FOR PAIN FOR 5 DAYS 11/13 completed Not Available Not Available Not Available Tylenol Extra Strength 500 mg tablet Take 2 tablets every 4 hours by oral route as needed. 11/13 completed Not Available Not Available Not Available Vitamin B6 100 mg tablet Take 1 tablet every day by oral route. active Not Available Not Available No t Available amiodaron e 100 mg tablet Take 1 tablet every day by oral route. 10/12 completed Not Available Not Available Not Available metoprolo l tartrate 25 mg tablet take 1 tab twice a day po 10/17 completed Not Available Not Available Not Available levothyro xine 50 1 po qd 02/13 completed Not Available Not Available Not Available GaviLyte- G 236 gram-22.7 4 gram-6.74 gram-5.86 gram oral solution TAKE 8 OUNCE BY MOUTH DIRECTED FOLLOW INSTRUCT IONS PROVIDED BY DOCTOR OFFICE 06/01 completed Not Available Not Available Not Available Multaq 400 mg tablet active Not Available Not Available Not Available dabigatra n etexilate 150 mg capsule TWO TIMES DAILY 11/27 completed RECORDED 11/28/19 12 8:38AM BY LORE SHI MA, OFFICE VISIT; Not Available Not Available Not Available Eliquis 5 mg tablet TAKE 1 TABLET BY MOUTH TWICE A DAY active Not Available Not Available No t Available Tiadylt ER 180 mg capsule,e xtended release TAKE 1 CAPSULE BY MOUTH EVERY DAY 09/23 completed diltiaze m Not Available Not Available Not Available Fluad Quad [id number] (65yr up)(PF) 60 mcg (15 mcg x 4)/0.5mL IM syringe PHARMACY ADMINIST ERED 03/30 completed Not Available Not Available Not Available Vitals Date Recorded Body height Body mass index (BMI) Body weight Oxygen saturation Oxygen saturation in Arterial blood by Pulse oximetry Heart rate Body temperature Systolic And Diastolic Provider Name and Address Organization Details Last Updated DateTime 5 180.34 cm 42.9 kg/m2 745492. 66 g 98 % 98 % 78 /min 97.7 [degF] 115/80 mm[Hg] Noemi Carranza MA [facility] 5 13:52:46 Date Recorded Body height Body mass index (BMI) Body weight Heart rate Oxygen saturation Oxygen saturation in Arterial blood by Pulse oximetry Body temperature Systolic And Diastolic Provider Name and Address Organization Details Last Updated DateTime 3 180.34 cm 42.1 kg/m2 991257. 1 g 87 /min 97 % 97 % 97.9 [degF] 124/83 mm[Hg] Nathaly Danielle MA [facility] 3 13:17:24 Date Recorded Systolic And Diastolic Provider Name and Address Organization Details Last Updated DateTime 01/10/2024 126/82 mm[Hg] Marcello Gonsalves PA-C [address] [facility], [place], [address], [facility] 01/10/2024 11:25:24 Date Recorded Body height Body mass index (BMI) Body weight Heart rate Oxygen saturation Oxygen saturation in Arterial blood by Pulse oximetry Body temperature Systolic And Diastolic Provider Name and Address Organization Details Last Updated DateTime 4 180.34 cm 41.1 kg/m2 280052. 75 g 74 /min 97 % 97 % 97.7 [degF] 142/84 mm[Hg] Geovanna Mejia MA [facility] 4 10:24:30 Date Recorded Systolic And Diastolic Provider Name and Address Organization Details Last Updated DateTime 04/30/2024 114/68 mm[Hg] Marcello Gonsalves PA-C [address] [facility], [place], [address], [facility] 04/30/2024 09:29:52 Date Recorded Body height Body mass index (BMI) Body weight Heart rate Oxygen saturation Oxygen saturation in Arterial blood by Pulse oximetry Body temperature Systolic And Diastolic Provider Name and Address Organization Details Last Updated DateTime 4 180.34 cm 41.4 kg/m2 088689. 93 g 82 /min 97 % 97 % 97.1 [degF] 136/92 mm[Hg] Nathaly Danielle [facility] 4 08:41:26 Date Recorded Systolic And Diastolic Provider Name and Address Organization Details Last Updated DateTime 06/01/2022 124/80 mm[Hg] Marcello Gonsalves PA-C [address] [facility], [place], [address], [facility] 06/01/2022 10:01:55 Date Recorded Body height Body mass index (BMI) Body weight Heart rate Oxygen saturation Oxygen saturation in Arterial blood by Pulse oximetry Body temperature Systolic And Diastolic Provider Name and Address Organization Details Last Updated DateTime 2 180.34 cm 45 kg/m2 161056. 34 g 63 /min 98 % 98 % 96.7 [degF] 153/83 mm[Hg] Nathaly Danielle [facility] 2 09:21:36 Date Recorded Body height Body mass index (BMI) Body weight Heart rate Oxygen saturation Oxygen saturation in Arterial blood by Pulse oximetry Body temperature Systolic And Diastolic Provider Name and Address Organization Details Last Updated DateTime 3 180.34 cm 40 kg/m2 915687. 01 g 78 /min 97 % 97 % 97.6 [degF] 138/98 mm[Hg] Yumiko quick [facility] 3 09:46:24 Social History Question Answer Notes LastModified by Organizat ion Details LastModified Time Tobacco Smoking Status Never Smoker Lore blakely [facility] 05/23/2014 11:01:07 Do You Have An Advance Directive? Yes Information not available 12/01/2021 Is Blood Transfusion Acceptable In An Emergency? Yes Information not available 05/26/2015 What Is Your Level Of Caffeine Consumption? Occasional 1 Decaff Coffee, No Soda Information not available 01/04/2023 How Much Tobacco Do You Chew? None Information not available 04/09/2015 What Type Of Diet Are You Following? REGULAR Information not available 04/09/2015 Which Illicit Or Recreational Drugs Have You Used? None Information not available 04/09/2015 Live Alone Or With Others? With Others (Lily) Information not available 12/01/2021 Do You Take Precautions To Prevent Distracted Driving? Yes Information not available 05/26/2015 How Often Do You Need To Have Someone Help You When You Read Instructions, Pamphlets, Or Other Written Material From Your Doctor Or Pharmacy? Never Information not available 05/26/2015 Have You Served In The ? No [email or web address] Information not available 06/02/2016 Have You Or Anyone In Your Household Had Any Of The Following Symptoms In The Last 14 Days: Sore Throat, Cough, Chills, Body Aches For Unknown Reasons, Shortness Of Breath For Unknown Reasons, Loss Of Smell, Loss Of Taste, Fever At Or Greater Than 100 Degrees Fahrenheit? No [email or web address] Information not available 03/30/2020 Are You Or Anyone In Your Household A Health Care Provider Or Emergency Responder? No [email or web address] Information not available 03/30/2020 To The Best Of Your Knowledge Have You Been In Close Proximity To Any Individual Who Tested Positive For COVID-19? No [email or web address] Information not available 03/30/2020 What Was The Date Of Your Most Recent Tobacco Screening? 01/10/2024 [email or web address] Information not available 01/10/2024 How Many Children Do You Have? 3 Information not available 05/26/2015 Do You Use Protection During Sex? No Information not available 11/12/2015 Do You Use Your Seat Belt Or Car Seat Routinely? Yes Information not available 12/01/2021 Seat Belts Used Routinely Yes Information not available 12/01/2021 Are You Sexually Active? Yes Information not available 11/12/2015 Smoke Alarm In Home Yes Information not available 12/01/2021 Do You Have Smoke And Carbon Monoxide Detectors In Your Home? Yes Information not available 12/01/2021 At What Age Did You Start Smoking Tobacco? 67 Information not available 12/01/2021 Are You Passively Exposed To Smoke? No Information not available 04/09/2015 How Much Tobacco Do You Smoke? No Information not available 04/09/2015 Do You Use Sunscreen Routinely? Yes Information not available 05/26/2015 How Many Years Have You Smoked Tobacco? 15 Information not available 12/01/2021 Sex: Unknown Functional Status Question Answer Note LastModified by Organizat ion Details LastModified Time What is your level of alcohol consumption? Occasional Information not available 05/23/2014 Are you currently employed? No [email or web address] Information not available 04/09/2015 Are you able to walk? YESWOREST [facility] Information not available 12/01/2021 Are you able to care for yourself? Yes Information not available 04/09/2015 What is your occupation? Retired [facility] Information not available 12/01/2021 What is your exercise level? None Information not available 05/23/2014 Mental Status None recorded. Family History Relationship Description Onset Age of this Age Resolved Age Notes LastModified by Organization Details LastModified Time Mother Diabetes mellitus [email or web address] Not available 11/12/2015 10:54:41 Father Carcinoma in situ of lung 34 [email or web address] Not available 09:18:53 Medical History Condition Response Heart Problems Y Hypothyroidism Y Bladder Problems Y Obesity Y Arthritis Y Reflux/GERD Y High Cholesterol Y Immunizations Vaccine Type Date Status Note Provider Nam e and Address Organization Details Recorded Time Influenza, split virus, trivalent, PF 4 completed Sharlene blakely [facility] 04/22/2021 11:10:35 zoster live 9 completed WINNIE Hoffman [facility] 06/01/2022 09:21:12 Influenza, high-dose, quadrivalent, PF 1 completed WINNIE Hoffman [facility] 06/01/2022 09:21:12 COVID-19, mRNA, LNP-S, PF, 100 mcg/0.5mL dose or 50 mcg/0.25mL dose 1 completed WINNIE Hoffman [facility] 06/01/2022 09:21:12 Influenza, adjuvanted, quadrivalent, PF 0 completed WINNIE Hoffman [facility] 09/23/2021 09:07:10 Influenza, high-dose, trivalent, PF 9 completed WINNIE Hoffman [facility] 09/23/2021 09:07:10 Influenza, high-dose, trivalent, PF 8 completed WINNIE Hoffman, [facility] 09/23/2021 09:07:10 Influenza, high-dose, trivalent, PF 6 completed WINNIE Hoffman [facility] 09/23/2021 09:07:10 COVID-19, mRNA, LNP-S, bivalent, PF, 50 mcg/0.5 mL or 25mcg/0.25 mL dose 2 completed WINNIE Hoffman [facility] 06/01/2022 09:21:12 pneumococcal polysaccharide PPV23 8 completed WINNIE Hoffman [facility] 06/01/2022 09:21:12 Influenza, high-dose, quadrivalent, PF 2 completed WINNIE Hoffman [facility] 06/01/2022 09:21:12 Tdap 5 completed WINNIE Hoffman, [facility] 06/01/2022 09:21:12 Pneumococcal conjugate PCV 13 6 completed WINNIE Hoffman, [facility] 06/01/2022 09:21:12 Influenza, high-dose, trivalent, PF 5 completed WINNIE Hoffman, [facility] 06/01/2022 09:21:13 Influenza, high-dose, trivalent, PF 7 completed WINNIE Hoffman, [facility] 01/04/2023 13:16:31 COVID-19, mRNA, LNP-S, PF, 50 mcg/0.5 mL 4 completed Kirstin blakely [facility] 04/08/2024 08:54:00 Influenza, high-dose, trivalent, PF 4 completed Kirstin Wheeler null, [facility] 04/08/2024 08:54:00 Influenza, adjuvanted, quadrivalent, PF 3 completed WINNIE Hoffman, [facility] 04/30/2024 08:34:17 COVID-19, mRNA, LNP-S, PF, 50 mcg/0.5 mL 3 completed WINNIE Hoffman, [facility] 04/30/2024 08:34:17 Td (adult), 2 Lf tetanus toxoid, preservative free, adsorbed 4 completed Sharlene Nicholsonneelam blakely, [facility] 04/22/2021 11:10:35 Influenza, split virus, trivalent, preservative 8 completed Sharlene Nicholson null, [facility] 04/22/2021 11:10:35 Influenza, split virus, trivalent, preservative 9 completed Sharlene Nicholson null, [facility] 04/22/2021 11:10:35 Influenza, split virus, trivalent, preservative 0 completed Sharlene Nicholson null, [facility] 04/22/2021 11:10:35 Influenza, split virus, trivalent, preservative 1 completed Sharlene Nicholson null, [facility] 04/22/2021 11:10:35 Past Encounters Encounter ID Performer Location Encounter Start Date Encounter Closed Date Diagnosis/Indication Diagnosis SNOMED-CT Code Diagnosis ICD10 Code Diagnosis Note [id number] auto[facility] erce [address] [facility] [place] [address] 08/27/2007 00:00:00 [id number] autoEComm erce [address] [facility] [place] [address] 12/26/2007 00:00:00 [id number] auto[facility]Comm erce [address] [place] [address] 12/26/2007 00:00:00 [id number] auto[facility]Comm erce [address] [place] [address] 12/26/2007 00:00:00 [id number] autoEComm erce [address] [facility] [address] [place] [address] 02/04/2008 00:00:00 [id number] autoEComm erce [address] [facility] [address] [place] [address] 04/04/2008 00:00:00 [id number] autoEComm erce [address] [facility] [address] [place] [address] 04/04/2008 00:00:00 [id number] autoEComm erce [address] [facility] [place] [address] 04/04/2008 00:00:00 [id number] autoEComm erce [address] [facility] [place] [address] 04/04/2008 00:00:00 [id number] autoEComm erce [address] [facility] [place] [address] 01/14/2009 00:00:00 [id number] autoEComm erce [address] [facility] [place] [address] 01/14/2009 00:00:00 [id number] autoEComm erce [address] [facility] [place] [address] 01/14/2009 00:00:00 [id number] autoEComm erce [address] [facility] [place] [address] 01/14/2009 00:00:00 [id number] autoEComm erce [address] [facility] [place] [address] 02/17/2009 00:00:00 [id number] autoEComm erce [address] [facility] [place] [address] 02/17/2009 00:00:00 [id number] autoEComm erce [address] [place] [address] 02/17/2009 00:00:00 [id number] autoEComm erce [address] [place] [address] 02/17/2009 00:00:00 [id number] autoEComm erce [address] [place] [address] 05/22/2009 00:00:00 [id number] autoEComm erce [address] [facility] [address] [place] [address] 05/22/2009 00:00:00 [id number] autoEComm erce [address] [facility] [address] [place] [address] 05/22/2009 00:00:00 [id number] autoEComm erce [address] [facility] [address] [place] [address] 05/22/2009 00:00:00 [id number] autoEComm erce [address] [facility] [place] [address] 10/09/2009 00:00:00 [id number] autoEComm erce [address] [facility] [address] [place] [address] 10/09/2009 00:00:00 [id number] autoEComm erce [address] [facility] [address] [place] [address] 10/09/2009 00:00:00 [id number] autoEComm erce [address] [facility] [place] [address] 07/05/2010 00:00:00 [id number] autoEComm erce [address] [facility] [address] [place] [address] 11/11/2010 00:00:00 [id number] autoEComm erce [address] [facility] [place] [address] 11/11/2010 00:00:00 [id number] autoEComm erce [address] [place] [address] 11/11/2010 00:00:00 [id number] autoEComm erce [address] [place] [address] 12/27/2010 00:00:00 [id number] autoEComm erce [address] [place] [address] 12/27/2010 00:00:00 [id number] autoEComm erce [address] [place] [address] 12/27/2010 00:00:00 [id number] autoEComm erce [address] [facility] [address] [place] [address] 02/25/2011 00:00:00 [id number] autoEComm erce [address] [facility] [address] [place] [address] 02/25/2011 00:00:00 [id number] autoEComm erce [address] [facility] [address] [place] [address] 10/03/2011 00:00:00 [id number] autoEComm erce [address] [facility] [address] [place] [address] 10/03/2011 00:00:00 [id number] autoEComm erce [address] [facility] [place] [address] 11/28/2011 00:00:00 [id number] autoEComm erce [address] [facility] [address] [place] [address] 11/28/2011 00:00:00 [id number] autoEComm erce [address] [facility] [address] [place] [address] 11/29/2012 00:00:00 [id number] autoEComm erce [address] [facility] [address] [place] [address] 11/29/2012 00:00:00 [id number] autoEComm erce [address] [facility] [address] [place] [address] 11/29/2012 00:00:00 [id number] autoEComm erce [address] [facility] [place] [address] 11/11/2013 00:00:00 [id number] autoEComm erce [address] [facility] [place] [address] 11/11/2013 00:00:00 [id number] Timo lucio MD Main Office [address] [facility] [address] [place] [address] 05/23/2014 10:44:14 05/23/2014 11:54:13 Adult health examination 857490657 At [facility] ed risk for falls 929273605 Atrial fibrillation 82046557 Hypothyroidism 62910159 Benign pro static hyperplasia 177608496 Hyperlipidemia 47655552 Body mass index 40+ - severely obese 553969225 [id number] YVETTE Garvey Main Office [address] [address] [place] [address] 11/07/2014 09:57:13 11/07/2014 10:31:09 Pain in calf 923681115 doppler negative to r/o dvt. suspect ruptured bakers cyst. heat to area. call if worsening. Body mass index 40+ - severely obese 731244606 Atrial fibrillation 00211497 he is on anticoagul ant so risk dvt is low [id number] Timo lucio MD Main Office [address] [address] [place] [address] 11/24/2014 09:22:45 11/24/2014 10:04:03 Atrial fibrillation 43575577 continue meds Hyperlipidemia 34338467 Elevated blood-pressure reading without diagnosis of hypertension 654742221 pt will follow home bp and continue meds /metoprolo l helping bp as well as afib Body mass index 40+ - severely obese 526475343 Gastroesop hageal reflux disease 735389578 [id number] Timo lucio MD Main Office [address] [facility] [address] [place] [address] 03/12/2015 09:09:34 03/12/2015 09:27:18 Influenza vaccine needed 7912784852 106 Z28.3 Administra tion of diphtheria, pertussis, and tetanus vaccine 371448400 Z23 [id number] YVETTE Pascal Main Office [address] [address] [place] [address] 04/09/2015 13:21:57 04/09/2015 13:44:07 Knee pain 82931410 M25.561 Ice 4 times dailyx 20 minutes at a time, rest, ice elevate, use brace for compressio n, may take aleve 2 tabs BID x 5-7 days. If sx persist in 1-2 weeks please return as you may need imaging/ referral. Atrial fibrillation 4943 6004 I48.91 Stable on current meds, do not take NSAID > 7 days with eliquis. [id number] Timo lucio MD Main Office [address] [address] [place] [address] 05/26/2015 08:44:49 05/26/2015 09:38:30 Adult health examination 058407326 Z00.00 advised pt to get pneumonia vaccines and he is not due for colonoscop y till age 82 if he chooses Atrial fibrillation 4943 6004 I48.91 continue meds Hyperlipidemia 67227048 E78.5 Hypothyroidism 03931525 E03.9 [id number] Marcello Gonsalves PA-C Main Office [address] [address] [place] [address] 11/12/2015 10:43:42 11/12/2015 12:04:21 Knee pain 69927680 M25.561 [id number] Marcello Gonsalves PA-C Main Office [address] [address] [place] [address] 12/16/2015 09:01:26 12/16/2015 10:01:32 Knee pain 88143419 M25.561 c/o Right knee pain since 03/26 - no significan t improvemen t c PT - mild OA on xray, ? meniscal tear vs. other -- ortho eval [id number] Timo lucio MD Main Office [address] [address] [place] [address] 03/14/2016 13:57:54 03/14/2016 15:34:09 Painless rectal bleeding 397740190 K62.5 pt will hold eliquis for a week and f/u w/ both GI and cardiology [id number] Timo lucio MD Main Office [address] [facility] [address] [place] [address] 06/02/2016 09:45:11 06/02/2016 10:48:41 Adult health examination 540539350 Z00.00 advised pt to get pneumonia vaccines Administra tion of pneumococcal vaccine 19466190 Z23 Body mass index 40+ - severely obese 687895386 Z68.41 Atrial fibrillation 4943 6004 I48.91 continue meds [id number] Marcello Gonsalves PA-C Main Office [address] [address] [place] [address] 10/12/2016 08:46:54 10/12/2016 09:41:42 Upper respiratory infection 50755516 J06.9 25 minute office visit with greater than 50% of the visit face-to-fa ce with the patient and/or family providing counseling and/or coordinati on of care. Cough 87030349 R05 check cxr to r/o pna - rx if + Atrial fibrillation 4943 6004 I48.91 f/u c card tomorrow [id number] Marcello Gonsalves PA-C Main Office [address] [address] [place] [address] 10/17/2017 14:37:33 10/17/2017 15:40:51 Deep avulsion wound 622128762 T14.8XXA provided local wound care - irrigated c sterile saline, then dressed wound (see below). Will empiricall y rx for cellulitis c augmentin bid x 1 wk c 1 refill - advised pt most likely will need refill if + fx to help prevent osteomyeli tis (longer tmt course). f/u wound check in 48 hours - if worse, may need wound care referral 25 minute office visit with greater than 50% of the visit face-to-fa ce with the patient and/or family providing counseling and/or coordinati on of care. demonstrat ed to how to cut/apply xeroform dressing, 4x4 gauze, rebecca wrap, erika taped to second digit - change daily -- gave pt/ a few extra supplies Pain in toe 753973920 M7 9.675 and edema s/p 100 lb trap door fell on it - will check xray and rx c abx - see above for considerat ion of possible rx to help prevent osteomyeli tis -- if + fx will get ortho eval too [id number] Timo lucio MD Main Office [address] [address] [place] [address] 11/22/2017 13:41:38 11/22/2017 15:08:49 [id number] Timo lucio MD Main Office [address] [place] [address] 11/23/2017 09:13:43 11/23/2017 10:26:37 Adult health examination 414454611 Z00.00 advised pt to get pneumonia vaccines Hypothyroidism 04981966 E03.9 Hyperlipidemia 30836881 E78.5 Administra tion of pneumococcal vaccine 26155262 Z23 Varicella vaccination 68 102547 Z23 Body mass index 40+ - severely obese 783921534 E66.01 Z68.41 Atrial fibrillation 4943 6004 I48.91 continue meds Serum crea tinine above reference range 265056323 R79.89 [id number] Lio Langley MD Main Office [address] [place] [address] 11/28/2018 09:23:42 11/28/2018 10:49:50 Adult health examination 362273313 Z00.00 cont f/u c derm *will fwd this note to card* Osteoarthr itis of right knee joint 6991980846 68537 M17.11 s/p mri, cont f/u c ortho Hypothyroidism 29625124 E03.9 Hyperlipidemia 99937971 E78.5 Body mass index 40+ - severely obese 379926295 E66.01 Z68.41 Atrial fibrillation 4943 6004 I48.91 continue meds, cont f/u c card - see below Gastroesop hageal reflux disease 437098225 K21.9 stable, cont ppi as dir Dependence on continuous positive airway pressure ventilation 290954280 Z99.11 Impaired f asting glycemia 976323604 R73.01 Dyspnea 937847276 R06.00 ? d/t deconditio theresa/obesi ty - but does water aerobics and cuts his lawn - ? d/t chf - check bnp and cxr c cc: card he does have pending echo for next wk cont low salt diet [id number] Lio Langley MD Main Office [address] [place] [address] 03/30/2020 09:48:13 03/30/2020 11:12:09 Adult health examination 563404858 Z00.00 Atrial fibrillation 4943 6004 I48.91 continue meds, cont f/u c card - see below Osteoarthr itis of right knee joint 6147404400 00599 M17.11 cont f/u c ortho prn, rec trial of turmeric Hypothyroidism 26495924 E03.9 stable, cont supp as dir Hyperlipidemia 38632170 E78.5 stable, cont statin Body mass index 40+ - severely obese 846936664 E66.01 Z68.41 Gastroesop hageal reflux disease 798110289 K21.9 stable, cont ppi as dir - but consider change to pepcid 1-2x/day Dependence on continuous positive airway pressure ventilation 158763404 Z99.11 Impaired f asting glycemia 002774158 R73.01 Essential hypertension 11993466 I10 stable, cont med as dir Gout 64704691 M10.9 Hepatitis C screening 41 1721830 Z11.59 Edema of l ower extremity 970516503 R60.0 cont elevate, wear comp socks [id number] Lio Langley MD Main Office [address] [place] [address] 09/23/2021 08:51:22 09/23/2021 10:14:01 Essential hypertension 29174133 I10 stable, cont med as dir Hyperlipidemia 69243246 E78.5 Atrial fibrillation 4943 6004 I48.91 continue meds, cont f/u c card Hypothyroidism 92796494 E03.9 stable, cont supp as dir Impaired f asting glycemia 035893769 R73.01 Gout 61029937 M10.9 Numbness of foot 7865783 00 R20.0 no h/o dm or sciatica - 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 get vehicle 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 mara [id number] Lio Langley MD Main Office [address] [place] [address] 12/01/2021 09:18:32 12/01/2021 10:40:22 Adult health examination 773121925 Z00.00 will get fpi eval Screening for malignant neoplasm of colon 603673632 Z12.11 Gastroesop hageal reflux disease 627266913 K21.9 stable, cont ppi as dir (ac bkft) - but consider adding pepcid 1-2x/day - call if no sig improvemen t Feeling of lump in throat 830706351 F45.8 see above Atrial fibrillation 4943 6004 I48.91 continue meds, cont f/u c card Essential hypertension 40943475 I10 stable, cont med as dir Hypothyroidism 48760077 E03.9 stable, cont supp as dir Numbness of foot 2680443 00 R20.0 no h/o dm or sciatica - will get vehicle body sander eval cont to f/u c pod - encouraged pt to have pod send over recent note Body mass index 40+ - severely obese 036308093 E66.01 Z68.41 Varicella vaccination 68 294944 Z23 Osteoarthr itis of right knee joint [id number] 20411 M17.11 cont f/u c ortho prn, rec trial of turmeric - pt has declined TKR in past, filled out handicap placard Prediabetes 904022445 R7 3.03 [id number] Lio Langley MD Main Office [address] [address] 06/01/2022 09:11:13 06/01/2022 10:26:28 Gastroesophageal reflux disease 228026547 K21.9 stable, cont ppi as dir (ac bkft) - but consider adding pepcid 1-2x/day - call if no sig improvemen t fol by gi - just had barium swallow - normal as per pt, pending colon, no need for egd Essential hypertension 28490676 I10 stable, cont med as dir, cont f/u c card Atrial fibrillation 4943 6004 I48.91 stable, continue meds, cont f/u c card Hyperlipidemia 49366798 E78.5 stable lipids, cont statin as dir Hypothyroidism 59356942 E03.9 stable, cont supp as dir Prediabetes 699780742 R7 3.03 last A1c 5.7, recheck - but advised pt that the threshold for DM is higher d/t age > 80y.o. [id number] Lio Langley MD Main Office [address] [place] [address] 01/04/2023 12:59:45 01/04/2023 14:44:22 Adult health examination 174383041 Z00.00 pt declines fpi eval Venous sta sis ulcer with edema of left lower leg 5538690488 1045661 L97.929 has had x past month - will get wound care eval - meanwhile, stop peroxide - cont cleanse c soap/water , bacitracin /telfa/kli ng qd Constipation 60591671 K5 9.00 fol by gi - had colon 5.23 - no report to review, will attempt to getrec colace 1-2 tabs / day Atrial fibrillation 4943 6004 I48.91 stable, continue meds, cont f/u c card Essential hypertension 34182699 I10 stable, cont med as dir, cont f/u c card Hyperlipidemia 52317326 E78.5 stable lipids, cont statin as dir Hypothyroidism 73368408 E03.9 stable, cont supp as dir Prediabetes 007563561 R7 3.03 last A1c 5.7, recheck - but advised pt that the threshold for DM is higher d/t age > 80y.o. 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 f/u c vehicle body sander q 4 months Body mass index 40+ - severely obese 038400101 E66.01 Z68.41 [id number] Lio Langley MD Main Office [address] [address] 01/10/2024 10:14:37 01/10/2024 11:30:51 Adult health examination 263469212 Z00.00 will attempt to get last colon from [facility] - last yrpt declines fpi eval Constipation 64097247 K5 9.00 fol by gi - had colon 5.23 - no report to review, will attempt to getrec colace 1-2 tabs / day Atrial fibrillation 4943 6004 I48.91 stable, continue meds, cont f/u c card Essential hypertension 80855857 I10 stable, cont med as dir, cont f/u c card Hyperlipidemia 46155256 E78.5 stable lipids, cont statin as dir Hypothyroidism 53341907 E03.9 stable, cont supp as dir Prediabetes 871628205 R7 3.03 last A1c 5.7, recheck - but advised pt that the threshold for DM is higher d/t age > 80y.o. 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 11.24 - a1c down to 5.6 Cervical radiculopathy 24039182 M54.12 x few months - radiates to L sh intermitte ntly = will check xray, consider pmr if worserec tyl atc, consider gbn if worserec hep Benign pro static hyperplasia 458714303 N40.0 stable - cont med as dir, cont f/u c uro History of calculus of kidney 718778809 Z87.442 better now, cont med as dir, cont f/u c uro Hypothyroidism 55607495 E03.9 stable, cont supp as dir Obstructiv e sleep apnea syndrome 70302721 G47.33 stable, cont cpap as dir Atrial fibrillation 4943 6004 I48.91 stable, continue meds, cont f/u c card [id number] Lio Langley MD Main Office [address] [facility] [place] [place] [address] 11/13/2024 13:41:25 11/13/2024 15:11:42 Essential hypertension 25503184 I10 stable, cont med as dir, cont f/u c card Hypothyroidism 26339805 E03.9 stable, cont supp as dir Cervical radiculopathy 47498035 M54.12 x few months - radiates to L sh intermitte ntly = will check xray, consider pmr if worserec tyl atc, consider gbn if worserec hep 6.25 - Srinath - you have a fairly significan t amount of degenerati ve changes in your neck - I would recommend that you see a physiatris t to consider a cortisone injection, especially before all of your travels coming up - - let me know if you'd like to see a local physiatris t (or let us know of a physiatris t in [place] who takes your insurance and is available to take you as a new patient).s xs sig better / resolved lately Prediabetes 640460857 R7 3.03 last A1c 5.7, recheck - but advised pt that the threshold for DM is higher d/t age > 80y.o. 11.24 - a1c down to 5.6 6.25 - recheck Otalgia of right ear 732 5053101 H92.01 ? d/t eustachian tube dysfxn and/or cerumen impaction - see below - if no better, then increase ns spray and use warm compress neck prn Atrial fibrillation 4943 6004 I48.91 stable, continue meds, cont f/u c card Hyperlipidemia 30973772 E78.5 stable lipids, cont statin as dir, cc: lipids to card Fatigue 54329372 R53.83 Impacted c erumen of bilateral ears 8774361153 042039 H61.23 Health Concerns Section Related Observation LastModified by Organization Richard chaney LastModified Time None Recorded Concern Status LastModified by Organization Details LastModified Time None Recorded Advance Directives Directive Y: Payers Insurance Date Sequence Insurance Name Policy Number Policy Mcdaniel Covered Member ID Mcdaniel Member ID Guarantor Name 11/22/2024 2 [facility] [id number] Lily Castaneda Dino [id number] Brayan K Dino 11/13/2024 1 MEDICARE B-KS: [facility] Shayy Dobbs Dino [id number] Brayan Dobbs Dino Notes Date Note Type Note Provider Name and Address Organization Details Recorded Time 06/01/2022 text/html Hypertension F/UReported bypatient.Associate d Symptoms:no dizziness; no lightheadedness; no chest pain; no shortness of breath; no palpitations; no edema; no calf pain with exertion Lifestyle:limiting/ avoiding salt;not exercising regularly Medications:taking medications as directed; no side effects from medication Marcello Gonsalves PA-C [address], [address], [facility] 06/01/2022 10:25:06 01/04/2023 text/html Medicare Annual Wellness VisitReported bypatient.Fracture Risk:history of fractures Physical Activity:does not exercise on a regular basis Depression Risk:no significant changes in weight Concentration and Memory:memory lapses or loss Speech/Motor difficulties:no speech difficulties Hearing:no loss of hearing Vision:no vision problems Activities of Daily Living:able to bathe with limited or no assistance; able to dress with limited or no assistance; able to get out of chair or bed with limited or no assistance; able to toilet with limited or no assistance Instrumental Activities of Daily Living:able to do house work with limited or no assistance; able to manage medications with limited or no assistance; able to manage money with limited or no assistance; able to prepare meals with limited or no assistance Falls Risk Assessment:no fall in the past year; no dizziness/vertigo Home Safety:working smoke/CO detectors; use of seatbelts; no fire arms Marcello Gonsalves PA-C [address], [address], [facility] 01/08/2023 13:17:10 01/10/2024 text/html Medicare Annual Wellness VisitReported bypatient.Fracture Risk:history of fractures Physical Activity:exercises on a regular basis; discussed exercise habits Depression Risk:no significant changes in weight Concentration and Memory:memory lapses or loss Speech/Motor difficulties:no speech difficulties Hearing:no loss of hearing Vision:no vision problems Activities of Daily Living:able to bathe with limited or no assistance; able to dress with limited or no assistance; able to get out of chair or bed with limited or no assistance; able to toilet with limited or no assistance Instrumental Activities of Daily Living:able to do house work with limited or no assistance; able to manage medications with limited or no assistance; able to manage money with limited or no assistance; able to prepare meals with limited or no assistance Falls Risk Assessment:no fall in the past year; no dizziness/vertigo Home Safety:working smoke/CO detectors; use of seatbelts; no fire arms Marcello Gonsalves PA-C [address], [address], [facility] 01/10/2024 11:33:58 04/30/2024 text/html Hypertension F/UReported bypatient.Associate d Symptoms:no dizziness; no lightheadedness; no chest pain; no shortness of breath; no palpitations; no edema; no calf pain with exertion Lifestyle:regular exercise; limiting/avoiding salt Medications:taking medications as directed; no side effects from medication Marcello Gonsalves PA-C [address], [address], [facility] 04/30/2024 09:41:14 11/13/2024 text/html Hypertension F/UReported bypatient.Associate d Symptoms:no dizziness; no lightheadedness; no chest pain; no shortness of breath; no palpitations; no edema; no calf pain with exertion Lifestyle:regular exercise; limiting/avoiding salt Medications:taking medications as directed; no side effects from medication Marcello Gonsalves PA-C [address], [address], [facility] 11/13/2024 14:48:17
--- OUTSIDE RECORDS SUMMARY | 2024-12-16 13:20 | XMS_ITS | Patient Health Record ---
Author Organization [facility] Address [facility] [facility] [address] [place] [address] Care Team Providers Care Reporting Developer Name Role Phone Rodolfo Rodgers Unavailable [phone] Rodolfo Rodgers MD Unavailable Unavailable Reason For Referral No Information Plan Of Treatment No Information Insurance Providers Payer Name Payer Address Payer Phone Subscriber Number Group Number Insured Name Patient Relationship to Insured Coverage Start Date Coverage End Date MEDICARE PART B [address] [address] [place], [place] [id number] Dino , Brayan Self - patient is the insured [employer] [address] [place], [place] [id number] Dino , Brayan Self - patient is the insured
== END 2024-12-16 13:55 | disposition home or self-care (01) ==
LOC: HO.HUSH 12:49
PROVIDERS: PCP Physician Assistant Medical; Visit Provider Urology
DX: R31.9 Hematuria, unspecified (principal); N20.0 Calculus of kidney; N40.1 Benign prostatic hyperplasia with lower urinary tract symptoms
CPT/HCPCS: 99214

== ENCOUNTER → 2024-12-16 12:48 | Outpatient (BNVA) | payer MEDICARE, OTHER, SELFPAY | PROVIDERS: PCP Physician Assistant Medical; Visit Provider Urology | DX: N40.1 Benign prostatic hyperplasia with lower urinary tract symptoms (principal); R31.9 Hematuria, unspecified; N20.0 Calculus of kidney; Z79.01 Long term (current) use of anticoagulants; Z79.899 Other long term (current) drug therapy | CPT/HCPCS: 99212 ==

== ENCOUNTER 2024-12-19 12:08 | Outpatient (REF) | payer MEDICARE, OTHER, SELFPAY ==
--- OUTSIDE RECORDS SUMMARY | 2024-12-19 12:31 | XMS_ITS | Clinical Summary ---
Author Organization [facility] Address [address] [place] [address] Phone Care Team Providers Care Electrician Chief Name Role Phone Shaggy Carmona Primary Care Provider + [phone] Allergies No known active allergies Medications apixaban [...] mouth 1 (one) time each day. 11/26/19 Discontinue d(Discontin ued by another clinician) levothyroxine [...] Problem Noted Date Diagnosed Date Aortic dilatation ([facility] V24) 05/17/2021 Assessment & Plan (11/25/2024 9:14 [...] therapies including diltiazem and hydrochlorothiazide. Atrial fibrillation ([facility] V24, CMS/HCC V28) 0 11/10/2020 Overview (11/25/2024): [...] Description 11/25/2024 8:40 AM EDT Office Visit [facility] [address] [place] [address] Violeta Pascual NP Longstanding persistent atrial fibrillation ([facility] V24, [facility] V28) (Primary Dx); Aortic dilatation ([facility] V24); Essential hypertension; Mixed hyperlipidemia 11/22/2024 12:30 PM EDT Ancillary Procedure [facility] Card[facility] [address] [place] [address] Longstanding persistent atrial fibrillation ([facility] V24, [facility] V28); Essential hypertension; Aortic dilatation ([facility] V24); Aneurysm of ascending aorta without rupture ([facility] V24) from Last 3 Months Surgical History [...] ventilation Body mass index 40.0-44.9, a dult ([facility] V24, [facility] V28) DX:Body mass index 40.0-44. 9, adult ([facility]); COMMENT: Severely obese Family History Medical History [...] Description 05/27/2025 10:00 AM EST Ancillary Procedure [facility] - [address] [place] [address] Health Maintenance Due Date Last [...] V24, CMS/HCC V28) Aortic dilatation (CMS/HCC V24) TRANSTHORACIC ECHOCARDIOGRAM (TTE) COMPLETE Routine 11/22/2024 1:03 PM EDT Longstanding persistent atrial fibrillation (CMS/HCC V24, CMS/HCC V28) Essential hypertension Aortic dilatation (CMS/HCC V24) Aneurysm of ascending aorta without rupture (CMS/HCC V24) EXTERNAL CLINICAL LAB Routine 11/15/2024 1:37 PM EDT from Last 3 Months Results * ECG 12 lead (11/25/2024 9:14 AM EDT) Ventricular Rate ECG 91 BPM GEMUSE Atrial Rate 86 BPM GEMUSE QRS Duration 140 ms GEMUSE Q-T Interval 402 ms GEMUSE QTc 494 ms GEMUSE R Riley -61 degrees GEMUSE T Riley 70 degrees GEMUSE ECG Interpretation Atrial fibrillation Right bundle branch block Left anterior fascicular block Abnormal ECG No previous ECGs available Confirmed by FRANK MCDOWELL ([id number]) on 11/25/2024 10:54:27 AM GEMUSE 11/25/2024 8:47 AM EDT 11/25/2024 10:54 AM EDT us Violeta Samara INSURANCE COMMISSIONER ECG ORDERABLES Edited Resul t - Final PAWAN * (ABNORMAL) TRANSTHORACIC ECHOCARDIOGRAM (TTE) COMPLETE (11/22/2024 1:03 PM EDT) Left Atrium Minor Riley 7.4 cm CV PACS Left Atrium Major Riley 7.5 cm CV PACS LA Area Sys (A2C) 40 cm2 CV PACS LA Area Sys (A4C) 37 cm2 CV PACS LA Volume (BP) 161 mL CV PACS RA Area 30.5 cm2 CV PACS RA 2D Volume 110 mL CV PACS AV Mean Gradient 2 mmHg CV PACS Ao VTI 16.4 cm CV PACS AV Peak Gus 1.0 m/s CV PACS AV Peak Gradient 4 mmHg CV PACS AV Area Continuity Equation 3.5 cm2 CV PACS AV Area Peak Velocity 2.6 cm2 CV PACS Aortic Sinus Valsalva 4.4 cm CV PACS Ascending Aorta 4.6 cm CV PACS IVSD 1.8(A) 0.6 - 1.0 cm CV PACS LVIDD 1.7(A) 4.2 - 5.8 cm CV PACS LVIDS 3.0 2.5 - 4.0 cm CV PACS LVOT Diameter 2.0 cm CV PACS LVOT Mean Gus 0.5 m/s CV PACS LVOT Mean Grad 1 mmHg CV PACS LVOT Peak VTI 18.2 cm CV PACS LVOT Peak Gus 0.8 m/s CV PACS LVOT Peak Gradient 3 mmHg CV PACS LVPWD 1.4(A) 0.6 - 1.0 cm CV PACS MV E' Tissue Velocity Lateral 10 cm/s CV PACS MV E' Tissue Velocity Septal 6 cm/s CV PACS LVOT Area 3.1 cm2 CV PACS LVOT Stroke Volume 57 mL CV PACS MV Deceleration Storey 7.4 m/s2 CV PACS E Wave Deceleration Time 149 119 - 242 ms CV PACS MV PHT 43 ms CV PACS MV Peak E Gus 0.60 m/s CV PACS MV Mean Gradient 1 mmHg CV PACS MV VTI 14.5 cm CV PACS Mitral Valve Max Velocity 0.9 m/s CV PACS MV Peak Gradient 3 mmHg CV PACS MV Area PHT 5.0 cm2 CV PACS MV Area Continuity Equation 3.9 cm2 CV PACS PV Acceleration Time 130 ms CV PACS RV S' 8 cm/s CV PACS TAPSE 11 mm CV PACS TR Peak Velocity 2.40 m/s CV PACS TR Peak Gradient 24 mmHg CV PACS E/E' Ratio Septal 10 CV PACS E/E' Ratio Averaged 8 CV PACS Relative Wall Thickness ratio 1.65(A) 0.24 - 0.42 CV PACS LVOT:AV VTI Index 1.11 CV PACS FS -76 % CV PACS LV Mass 2D 94(A) 96 - 200 g CV PACS MV VTI:LVOT VTI ratio 0.8 CV PACS LVOT flow 157 mL/s CV PACS AV Velocity Ratio 0.80 CV PACS E/E' Ratio Lateral 6 CV PACS LVOT Stroke Index 22 mL/m2 CV PACS Ascending Aorta Index 1.79 cm/m2 CV PACS RA 2D Volume Index 43 18 - 32 mL/m2 CV PACS MADELYN Index (VTI) 1.36 cm2/m2 CV PACS MADELYN Index (Pk Gus) 1.01 cm2/m2 CV PACS LVIDD Index 0.66 cm/m2 CV PACS LVIDS Index 1.17 cm/m2 CV PACS LA Volume Index (BP) 63 mL/m2 CV PACS LV Mass Index 2D 37(A) 50 - 102 g/m2 CV PACS BSA 2.66 m2 CV PACS RV Free Wall Peak S' 8 cm/s CV PACS RA Major Riley 6.7 cm CV PACS RA Major Riley Index 2.6 2.1 - 2.7 cm/m2 CV PACS AV Area 2D 2.6 cm2 CV PACS MADELYN Index (2D) 1.01 cm2/m2 CV PACS AV Area Index 1.0 CV PACS RV Diastolic Basal Dimension 4.2(A) 2.5 - 4.1 cm CV PACS Right Ventricular Peak Systolic Pressure 31 mmHg CV PACS Est. RA Pressure 8 mmHg CV PACS Anatomical Region Laterality Modality Ultrasound Narrative 12/17/2024 2:19 PM EDT Left ventricle cavity size is normal. There is moderate to severe asymmetric septal hypertrophy. Systolic function is normal with an ejection fraction of 60-65%. There are no regional LV wall motion abnormalities. Right ventricle cavity is normal. Right ventricular systolic function is mildly reduced. Severely dilated left atrium. Moderately dilated right atrium. Aortic valve leaflets are mildly thickened with some mild regurgitation. Mild mitral regurgitation. Mild to moderate tricuspid regurgitation. Right ventricular systolic pressure is calculated to be 31 mmHg and appears underestimated. The Sinus of Valsalva is dilated (4.4 cm). The ascending aorta is dilated (4.6 cm). Compared to previous study of 10/23/2023, there are no significant changes. Will consider to exclude cardiac amyloidosis. Left Ventricle Left ventricle cavity size is normal. There is moderate to severe asymmetric septal hypertrophy. Systolic function is normal with an ejection fraction of 60-65%. There are no regional LV wall motion abnormalities. Unable to assess diastolic function due to atrial fibrillation. Right Ventricle Right ventricle cavity appears normal. Systolic function is mildly reduced. Left Atrium Left atrium cavity is severely dilated. Right Atrium Right atrium cavity is moderately dilated. IVC/SVC Inferior vena cava is dilated. RA pressures is estimated to be 8 mmHg (IVC diameter <21 mm and decreases <50% during inspiration). Mitral Valve The leaflets are mildly thickened. There is mild annular calcification. There is mild regurgitation. There is no evidence of mitral valve stenosis. Tricuspid Valve Tricuspid valve structure is normal. There is mild to moderate regurgitation. There is no evidence of tricuspid valve stenosis. The RVSP is estimated at 31 mmHg. Aortic Valve The aortic valve is trileaflet. The leaflets are mildly thickened. There is mild regurgitation. There is no evidence of aortic valve stenosis. Pulmonic Valve Visualized portions of the pulmonic valve appear normal. There is trace pulmonic valve regurgitation. There is no evidence of pulmonic valve stenosis. Ascending Aorta The Sinus of Valsalva is (4.4 cm). The ascending aorta is (4.6 cm). Pericardium Pericardium appears normal. There is no pericardial effusion. Study Details Overall the study quality was technically difficult. 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
--- OUTSIDE RECORDS SUMMARY | 2024-12-19 12:31 | XMS_ITS | Patient Health Record ---
Author Organization [facility] Address [address] [place] [address] Care Team Providers Care Spragger Name Role Phone Shaggy Carmona PA-C Primary Care Provider Ashly Tovar Unavailable [phone] Jesus Joseph Unavailable [phone] Allergies No Known Allergies Reason For Referral [...] Polyneuropathy due to type 2 diabetes mellitus (102277805) Type 2 diabetes mellitus with diabetic polyneuropathy (E11.42) Active confirmed Problem Bilateral atherosclerosis of arteries of lower limbs (disorder) (00475699890456431 ) Unspecified atherosclerosis of [place] arteries of extremities, bilateral legs (I70.203) Active confirmed Problem Acquired hammer toe of right foot (6208122078820257) Other hammer toe(s) (acquired), right foot (M20.41) Active confirmed Problem Acquired hammer toe of left foot (1728168495618464) Other hammer toe(s) (acquired), left foot (M20.42) Active confirmed Vital Signs Blood pressure diastolic 60 mm Hg 10/16/2024 Height 6ft 1in in 10/16/2024 Blood pressure systolic 120 mm Hg 10/16/2024 Weight 285 lbs 10/16/2024 BMI 37.6 kg/m2 10/16/2024 Procedures Procedure Date Ordered Date Performed Result Body Sit e 48986-XGPYXVQ NAIL, 6 OR MORE 06/04/2024 N/A 29508-OLCT SKIN LESIONS, OVER 4 06/04/2024 N/A 49882-OOKDNEQ NAIL, 6 OR MORE 10/16/2024 N/A 70190-GFBF SKIN LESIONS, OVER 4 10/16/2024 N/A Encounters Encounter Location Date Provider Diagnosis [facility] [address] [place] [address] 03/06/2024 Jesus Joseph Tinea unguium B35.1 ; Pain in right toe(s) M79.674 ; Pain in left toe(s) M79.675 ; Other hammer toe(s) (acquired), left foot M20.42 ; Other hammer toe(s) (acquired), right foot M20.41 ; Unspecified atherosclerosis of [place] arteries of extremities, bilateral legs I70.203 and Xerosis cutis L85.3 [facility] [address] [place] [id number] 06/04/2024 Ashly Ríos Type 2 diabetes mellitus with diabetic polyneuropathy E11.42 ; Tinea unguium B35.1 and Unspecified atherosclerosis of [place] arteries of extremities, bilateral legs I70.203 [facility] [address] [place] [address] 10/16/2024 Ashly Ríos Type 2 diabetes mellitus with diabetic polyneuropathy E11.42 ; Tinea unguium B35.1 and Unspecified atherosclerosis of [place] arteries of extremities, bilateral legs I70.203 Assessments [...] (ICD-10 - B35.1) 10/16/2024 Unspecified atherosclerosis of [place] arteries of extremities, bilateral legs (ICD-10 - I70.203) 06/04/2024 Unspecified atherosclerosis of [place] arteries of extremities, bilateral legs (ICD-10 - I70.203) 03/06/2024 Pain in left toe(s) (ICD-10 - M79.675) 03/06/2024 Other hammer toe(s) (acquired), left foot (ICD-10 - M20.42) 03/06/2024 Other hammer toe(s) (acquired), right foot (ICD-10 - M20.41) 03/06/2024 Unspecified atherosclerosis of [place] arteries of extremities, bilateral legs (ICD-10 - I70.203) 03/06/2024 Xerosis cutis (ICD-10 - L85.3) Plan Of Treatment Pending Test Test Name Order Date 62919-TFQFXXO NAIL, 6 OR MORE 06/04/2024 35543-OXMXSZI NAIL, 6 OR MORE 10/16/2024 36511-NKBD SKIN LESIONS, OVER 4 10/17/19 04317-GSUJ SKIN LESIONS, OVER 4 06/04/20 83392-QEZE SKIN LESIONS, OVER 4 11/17/19 32263-DREV SKIN LESIONS, OVER 4 02/09/20 22 97739-VMJNPYOR OF HEMATOMA/FLUID 022 Next Appt Details Provider Name:Ashly gilliam, 01/15/2025 02:30:00 PM, [address], [place], [address], Insurance Providers Payer Name Payer Address Payer Phone Subscriber Number Group Number Insured Name Patient Relationship to Insured Coverage Start Date Coverage End Date Medicare National Govt [facility] [address] [place] [address] [id number] Brayan Sun Self - patient is the insured [employer] [address] [place] [address] [id number] Brayan Sun Self - patient is the insured Medical (General) History Medical History History ICD Code Back,Hip,and Knee pain Broken bones CAD (Cholesterol) Cataracts Heart disease Numbness Reflux ( GERD) thyroid A fib CPAP hyperlipidemia Kidney stones Surgical History Surgery Date(Month/Year) foot surgery, right 08/11/2007 colonoscopy 02/27/2012 Hospitalization History Reason Date(Month/Year[place] [facility] [place]
--- OUTSIDE RECORDS SUMMARY | 2024-12-19 12:32 | XMS_ITS | Patient Health Record ---
Author Organization [facility] Address [facility] [address] [place] [address] Care Team Providers Care Anatomy Teacher Name Role Phone Rodolfo Rodgers Unavailable [phone] Rodolfo Rodgers MD Unavailable Unavailable Reason For Referral No Information Plan Of Treatment No Information Insurance Providers Payer Name Payer Address Payer Phone Subscriber Number Group Number Insured Name Patient Relationship to Insured Coverage Start Date Coverage End Date MEDICARE PART B [address] [address] [place], [place] [id number] [phone] [id number] Dino , Brayan Self - patient is the insured [facility] [address] [place], [place] [id number] D[address] Brayan Self - patient is the insured
--- OUTSIDE RECORDS SUMMARY | 2024-12-19 12:32 | XMS_ITS | Data Portability ---
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 KARTHIK VEGA Map And Chart Mounter MARCELLO GONSALVES Primary Care Provider Assessment Encounter [...] Go To The Location Of Their Choice, [id number] 11/16/2024 06:08:18 lipid panel, serum 2024 025 MALISSA [facility] (Centralized Electronic Ordering - All Locations), Patient Can Go To The Location Of Their Choice, [id number] 11/16/2024 06:08:17 CMP, serum or plasma 2024 025 MALISSA [facility] (Centralized Electronic Ordering - All Locations), Patient Can Go To The Location Of Their Choice, [id number] 11/16/2024 06:08:17 CBC w/ auto diff 2024 025 MALISSA [facility] (Centralized Electronic Ordering - All Locations), Patient Can Go To The Location Of Their Choice, [id number] 11/16/2024 06:08:16 TSH, ultra-sen sitive, serum 2024 025 MALISSA [facility] (Centralized Electronic Ordering - All Locations), Patient Can Go To The Location Of Their Choice, [id number] 11/16/2024 06:08:19 BMP, serum or plasma 2023 024 MALISSA [facility] (Centralized Electronic Ordering - All Locations), Patient Can Go To The Location Of Their Choice, [id number] 11/16/2024 06:08:22 TSH, ultra-sen sitive, serum 2023 024 MALISSA [facility] (Centralized Electronic Ordering - All Locations), Patient Can Go To The Location Of Their Choice, [id number] 11/16/2024 06:08:23 HbA1c (hemoglob in A1c), blood 2023 024 MALISSA [facility], [address], [address], [place], [address], 01/19/2024 20:59:16 CMP, serum or plasma 2023 024 MALISSA [facility], [address], [address], [place], [address], 01/19/2024 20:59:14 CBC w/ auto diff 2023 024 MALISSA [facility], [address], [address], [place], [address], 01/19/2024 20:59:14 lipid panel, serum 2023 024 MALISSA [facility], [address], [address], [place], [address], 01/19/2024 20:59:15 CK (creatine kinase), total, serum 2023 024 MALISSA [facility], [address], [address], [place], [address], 01/19/2024 20:59:17 PSA, serum or plasma - Screening 2023 024 MALISSA [facility], [address], [address], [place], [address], 01/19/2024 20:59:16 TSH, ultra-sen sitive, serum 2023 024 MALISSA [facility] (Centralized Electronic Ordering - All Locations), Patient Can Go To The Location Of Their Choice, [id number] 01/19/2024 20:59:17 HbA1c (hemoglob in A1c), blood 2022 023 MALISSA [facility], [address], [address], [place], [address], 01/11/2023 11:37:07 CMP, serum or plasma 2022 023 MALISSA [facility], [address], [address], [place], [place], [address], 01/11/2023 12:05:41 CBC w/ auto diff 2022 023 MALISSA [facility], [address], [address], [place], [place], [address], 01/11/2023 11:01:15 lipid panel, serum 2022 023 MALISSA [facility], [address], [address], [place], [address], 01/11/2023 12:05:43 CK (creatine kinase), total, serum 2022 023 MALISSA [facility], [address], [address], [place], [address], 01/11/2023 12:05:39 PSA, serum or plasma - Screening 2022 023 MALISSA [facility], [address], [address], [place], [address], 01/11/2023 11:32:11 TSH, serum or plasma 2022 023 MALISSA [facility], [address], [address], [place], [address], 01/11/2023 11:32:13 BMP, serum or plasma 2021 022 MALISSA [facility], [address], [address], [place], [address], 01/11/2023 07:11:44 HbA1c (hemoglob in A1c), blood 2021 022 MALISSA [facility], [address], [address], [place], [address], 01/11/2023 07:11:45 Referral nutrition ist/dieti zabrina referral 2023 024 [email or web address] Not available 01/10/2024 11:30:51 wound care referral 2022 023 damien [facility], [address] [place] [address] [place], [address], 01/27/2023 15:40:31 nutrition ist/dieti zabrina referral 2022 023 damien Not available 01/05/2023 09:40:17 Procedures cerumen removal (PROC) 2024 025 [place] In-Office Order, Internal Use Only DO Not Attach Compendium DO Not Attach Compendium, Do Not Delete/merge, [id number] 11/13/2024 15:41:26 Surgeries None recorded. Imaging XR, cervical spine 2023 024 [facility], [address] [place], [address], 04/30/2024 15:13:34 Medication Orders None recorded. 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 pmadden Not available 06/01/2022 10:23:46 01/04/2023 [id number] correction goal of Blood Pressure 140 / 90 Not available Not available Not available correction goal of Exercise level Not available Not available Not available correction goal of Tobacco Smoking Status Not available [...] goals. pmadden Not available 01/08/2023 13:13:15 01/10/2024 [id number] exterminator helper termite goal of Blood Pressure 140 / 90 Not available Not available Not available correction goal of Exercise level Not available Not available Not available correction goal of Tobacco Smoking Status Not available Not available Not available correction goal of Excess Body Weight Loss % [...] goals. pmadden Not available 01/10/2024 11:15:17 04/30/2024 [id number] Ongoing of Microalbumin/Cre atinine Ratio yearly Not [...] goal. pmadden Not available 04/30/2024 09:36:27 11/13/2024 [id number] correction goal of Blood Pressure 140 / 90 Not available Not available Not available correction goal of Exercise level Not available Not available Not available correction goal of Tobacco Smoking Status Not available [...] By Organization Details Last Modified Time 06/01/2022 [id number] Medications (OTC , herbal therapies, supplements) reviewed and reconciled with patient and or caregiver, including potential side effects, drug interactions, instructions, and the consequences of not taking medication. Reviewed potential barriers to medication adherence, such as side effects from medication or cost of medication. pmadden Not available 06/01/2022 10:24:46 01/04/2023 [id number] preventing falls : care instructions pmadden Not [...] medication. pmadden Not available 01/04/2023 14:13:32 01/10/2024 [id number] preventing falls : care instructions pmadden Not [...] medication. pmadden Not available 01/10/2024 11:15:25 04/30/2024 [id number] pinched nerve in the neck: care instructions [...] medication. 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 Refer ral for Body mass index 40+ - severely obese Referring Physician: Marcello Gonsalves, Internal Medicine, Encounter Date: 01/04/2023 Acetylene Torch Operator/dietitian Refer ral for Body mass index 40+ [...] of Clini frida and Appli ed Resea [facility] and Educa tion Volum e 43, Suppl [...] Go To The Location Of Their Choice, [id number] 01/11/2023 12:05:43 01/12/2001/11/2023 LIPID PANEL HDL chol 64 mg/dL (>39) Not Available [facility] (Centralized Electronic Ordering - All Locations) Patient Can Go To The Location Of Their Choice, [id number] 01/11/2023 12:05:43 01/12/2001/11/2023 LIPID PANEL LDL cholesterol, calculated 69 mg/dL (0-130 ) Not Available [facility] (Centralized Electronic Ordering - All Locations) Patient Can Go To The Location Of Their Choice, [address] 01/11/2023 12:05:43 01/12/2001/11/2023 LIPID PANEL non HDL cholesterol (calc) 89 mg/dL (<160) Not Available [facility] ([facility] Ordering - All Locations) Patient Can Go To The Location Of Their Choice, [id number] 01/11/2023 12:05:43 01/12/2001/13/2024 CBC WITH DIFFE RENTI AL/PL ATELE T WBC 8.3 x10e3 /uL 3.4-10 .8 normal Not Available [facility] ([facility]) [address] [place], [address], 01/19/2024 20:59:13 01/12/2001/13/2024 CBC WITH DIFFE RENTI AL/PL ATELE T RBC 5.68 x10e6 /uL 4.14-5 .80 normal Not Available [facility] ([facility]) [address] [place], [address], 01/19/2024 20:59:13 01/12/20 24 01/13/2024 CBC WITH DIFFE RENTI AL/PL ATELE T hemoglobin 16.6 g/dL 13.0-1 7.7 normal Not Available [facility] ([facility]) [address] [place], [address], 01/19/2024 20:59:13 08/02/01/13/2024 CBC WITH DIFFE RENTI AL/PL ATELE T hematocrit 52.2 % 37.5-5 1.0 above high normal Not Available [facility] ([facility]) [address] [place], [address], 01/19/2024 20:59:13 01/12/20 24 01/13/2024 CBC WITH DIFFE RENTI AL/PL ATELE T MCV 92 fL 79-97 normal Not Available [facility] ([facility]) [address] [place], [address], 01/19/2024 20:59:13 01/12/20 24 01/13/2024 CBC WITH DIFFE RENTI AL/PL ATELE T MCH 29.2 pg 26.6-3 3.0 normal Not Available [facility] ([facility]) [address] [place], [address], 01/19/2024 20:59:13 01/12/20 24 01/13/2024 CBC WITH DIFFE RENTI AL/PL ATELE T MCHC 31.8 g/dL 31.5-3 5.7 normal Not Available [facility] ([facility]) [address] [place], [address], 01/19/2024 20:59:13 01/12/20 24 01/13/2024 CBC WITH DIFFE RENTI AL/PL ATELE T RDW 13.2 % 11.6-1 5.4 Not Available [facility] ([facility]) [address] [place], [address], 01/19/2024 20:59:13 01/12/20 24 01/13/2024 CBC WITH DIFFE RENTI AL/PL ATELE T platelets 164 x10e3 /uL 150-45 0 normal Not Available [facility] ([facility]) [address] [place], [address], 01/19/2024 20:59:13 01/12/20 24 01/13/2024 CBC WITH DIFFE RENTI AL/PL ATELE T neutrophils 59 % not estab. normal Not Available [facility] ([facility]) [address] [place], [address], 01/19/2024 20:59:13 01/12/20 24 01/13/2024 CBC WITH DIFFE RENTI AL/PL ATELE T lymphs 30 % not estab. normal Not Available [facility] ([facility]) [address] [facility], [place], [address], 01/19/2024 20:59:13 01/12/20 24 01/13/2024 CBC WITH DIFFE RENTI AL/PL ATELE T monocytes 8 % not estab. normal Not Available [facility] ([facility]) [address] [facility], [place], [address], 01/19/2024 20:59:13 01/12/20 24 01/13/2024 CBC WITH DIFFE RENTI AL/PL ATELE T eos 2 % not estab. normal Not Available [facility] ([facility]) [address] [facility], [place], [address], 01/19/2024 20:59:13 01/12/20 24 01/13/2024 CBC WITH DIFFE RENTI AL/PL ATELE T basos 1 % not estab. normal Not Available [facility] ([facility]) [address] [facility], [place], [address], 01/19/2024 20:59:13 01/12/20 24 01/13/2024 CBC WITH DIFFE RENTI AL/PL ATELE T immature cells DIRECTOR OF GLOBAL TALENT Not Available [facility] ([facility]) [address] [place], [address], 01/19/2024 20:59:13 01/12/20 24 01/13/2024 CBC WITH DIFFE RENTI AL/PL ATELE T neutrophils (absolute) 4.9 x10e3 /uL 1.4-7. 0 normal Not Available [facility] ([facility]) [address] [facility], [place], [address], 01/19/2024 20:59:13 01/12/20 24 01/13/2024 CBC WITH DIFFE RENTI AL/PL ATELE T lymphs (absolute) 2.5 x10e3 /uL 0.7-3. 1 normal Not Available [facility] ([facility]) [address] [facility], [place], [address], 01/19/2024 20:59:13 01/12/20 24 01/13/2024 CBC WITH DIFFE RENTI AL/PL ATELE T monocytes(ab solute) 0.7 x10e3 /uL 0.1-0. 9 normal Not Available [facility] ([facility]) [address] [facility], [place], [address], 01/19/2024 20:59:13 01/12/20 24 01/13/2024 CBC WITH DIFFE RENTI AL/PL ATELE T eos (absolute) 0.1 x10e3 /uL 0.0-0. 4 normal Not Available [facility] ([facility]) [address] [facility], [place], [address], 01/19/2024 20:59:13 01/12/20 24 01/13/2024 CBC WITH DIFFE RENTI AL/PL ATELE T baso (absolute) 0.1 x10e3 /uL 0.0-0. 2 normal Not Available [facility] ([facility]) [address] [place], [address], 01/19/2024 20:59:13 01/12/20 24 01/13/2024 CBC WITH DIFFE RENTI AL/PL ATELE T immature granulocytes 0 % not estab. Not Available [facility] ([facility]) [address] [facility], [place], [address], 01/19/2024 20:59:13 01/12/20 24 01/13/2024 CBC WITH DIFFE RENTI AL/PL ATELE T immature grans (abs) 0.0 x10e3 /uL 0.0-0. 1 Not Available [facility] ([facility]) [address] [facility], [place], [address], 01/19/2024 20:59:13 01/12/20 24 01/13/2024 CBC WITH DIFFE RENTI AL/PL ATELE T NRBC DIRECTOR OF GLOBAL TALENT Not Available [facility] ([facility]) [address] [facility], [place], [address], 01/19/2024 20:59:13 01/12/20 24 01/13/2024 CBC WITH DIFFE RENTI AL/PL ATELE T hematology comments: DIRECTOR OF GLOBAL TALENT Not Available [facility] ([facility]) [address] [facility], [place], [address], 01/19/2024 20:59:13 01/12/20 24 01/12/2024 COMP. METAB OLIC PANEL (14) glucose 86 mg/dL 70-99 normal Not Available [facility] ([facility]) [address] [facility], [place], [address], 01/19/2024 20:59:14 01/12/20 24 01/12/2024 COMP. METAB OLIC PANEL (14) BUN 17 mg/dL 8-27 normal Not Available [facility] ([facility]) [address] [facility], [place], [address], 01/19/2024 20:59:14 01/12/20 24 01/12/2024 COMP. METAB OLIC PANEL (14) creatinine 1.02 mg/dL 0.76-1 .27 normal Not Available [facility] ([facility]) [address] [facility], [place], [address], 01/19/2024 20:59:14 01/12/20 24 01/12/2024 COMP. METAB OLIC PANEL (14) eGFR 74 mL/mi n/1.7 3 >59 normal Not Available [facility] ([facility]) [address] [facility] [place], [address], 01/19/2024 20:59:14 01/12/20 24 01/12/2024 COMP. METAB OLIC PANEL (14) BUN/creatini ne ratio 17 10-24 normal Not Available [facility] ([facility]) [address] [facility] [place], [address], 01/19/2024 20:59:14 01/12/20 24 01/12/2024 COMP. METAB OLIC PANEL (14) sodium 142 mmol/ L 134-14 4 normal Not Available [facility] ([facility]) [address] [facility] [place], [address], 01/19/2024 20:59:14 01/12/20 24 01/12/2024 COMP. METAB OLIC PANEL (14) potassium 4.1 mmol/ L 3.5-5. 2 normal Not Available [facility] ([facility]) [address] [facility], [place], [address], 01/19/2024 20:59:14 01/12/20 24 01/12/2024 COMP. METAB OLIC PANEL (14) chloride 102 mmol/ L 96-106 normal Not Available [facility] ([facility]) [address] [facility] [place], [address], 01/19/2024 20:59:14 01/12/20 24 01/12/2024 COMP. METAB OLIC PANEL (14) carbon dioxide, total 24 mmol/ L 20-29 normal Not Available [facility] ([facility]) [address] [facility] [place], [address], 01/19/2024 20:59:14 01/12/20 24 01/12/2024 COMP. METAB OLIC PANEL (14) calcium 9.3 mg/dL 8.6-10 .2 normal Not Available [facility] ([facility]) [address] [facility] [place], [address], 01/19/2024 20:59:14 01/12/20 24 01/12/2024 COMP. METAB OLIC PANEL (14) protein, total 6.8 g/dL 6.0-8. 5 normal Not Available [facility] ([facility]) [address] [facility], [place], [address], 01/19/2024 20:59:14 01/12/20 24 01/12/2024 COMP. METAB OLIC PANEL (14) albumin 4.3 g/dL 3.7-4. 7 normal Not Available [facility] ([facility]) [address] [place], [address], 01/19/2024 20:59:14 01/12/20 24 01/12/2024 COMP. METAB OLIC PANEL (14) globulin, total 2.5 g/dL 1.5-4. 5 Not Available [facility] ([facility]) [address] [facility], [place], [address], 01/19/2024 20:59:14 01/12/20 24 01/12/2024 COMP. METAB OLIC PANEL (14) bilirubin, total 0.9 mg/dL 0.0-1. 2 normal Not Available [facility] ([facility]) [address] [facility], [place], [address], 01/19/2024 20:59:14 01/12/20 24 01/12/2024 COMP. METAB OLIC PANEL (14) alkaline phosphatase 87 IU/L 44-121 normal Not Available [facility] ([facility]) [address] [facility], [address], 01/19/2024 20:59:14 01/12/20 24 01/12/2024 COMP. METAB OLIC PANEL (14) AST (SGOT) 25 IU/L 0-40 normal Not Available [facility] ([facility]) [address] [facility], [place], [address], 01/19/2024 20:59:14 01/12/20 24 01/12/2024 COMP. METAB OLIC PANEL (14) ALT (SGPT) 21 IU/L 0-44 normal Not Available [facility] ([facility]) [address] [facility] [place], [address], 01/19/2024 20:59:14 01/12/20 24 01/12/2024 LIPID PANEL cholesterol, total 155 mg/dL 100-19 9 normal Not Available [facility] ([facility]) [address] [place], [address], 01/19/2024 20:59:15 01/12/20 24 01/12/2024 LIPID PANEL triglyceride s 90 mg/dL 0-149 normal Not Available [facility] ([facility]) [address] [place], [address], 01/19/2024 20:59:15 01/12/20 24 01/12/2024 LIPID PANEL HDL cholesterol 66 mg/dL >39 normal Not Available [facility] ([facility]) [address] [place], [address], 01/19/2024 20:59:15 01/12/20 24 01/12/2024 LIPID PANEL VLDL cholesterol frida 17 mg/dL 5-40 Not Available [facility] ([facility]) [address] [place], [address], 01/19/2024 20:59:15 01/12/20 24 01/12/2024 LIPID PANEL LDL chol calc ([facility]) 72 mg/dL 0-99 Not Available [facility] ([facility]) [address] [place], [address], 01/19/2024 20:59:15 01/12/20 24 01/12/2024 LIPID PANEL LDL calc comment: DIRECTOR OF GLOBAL TALENT Not Available [facility] ([facility]) [address] [place], [address], 01/19/2024 20:59:15 01/12/2001/19/2024 PROST ATE SPECI FIC ANTIG EN prostate specific antigen 0.346 NG/mL This PSA resul t was deter mined using the [employer] an chemi lumin ometr ic immun oassa [...] prost atic hyper plasi a. Not Available [facility] [address] [facility], [place], [address], 01/19/2024 20:59:16 01/12/2001/13/2024 HEMOG LOBIN A1C hemoglobin A1C 5.6 % 4.8-5. 6 normal Predi abete s: 5.7 - 6.4 Diabe too: >6.4 Glyce angel contr ol for adult s with diabe too: <7.0 Not Available [facility] ([facility]) [address] [facility], [place], [address], 01/19/2024 20:59:16 01/12/2001/12/2024 TSH RFX ON ABNOR MAL TO FREE T4 TSH 3.610 uIU/m L 0.450- 4.500 normal Not Available [facility] ([facility]) [address] [place], [address], 01/19/2024 20:59:17 01/12/20 24 01/13/2024 CREAT INE KALI E,TOT AL creatine kinase,total 53 U/L 30-208 normal Not Available [facility] ([facility]) [address] [place], [address], 01/19/2024 20:59:17 11/14/1911/13/2024 cerum en remov al (PROC ) done by Noemi Not Available In-Office Order Internal Use Only DO Not Attach Compendium DO Not Attach Compendium, Do Not Delete/merge, [id number] 11/13/2024 14:35:36 11/16/1911/16/2024 CBC WITH DIFFE RENTI AL/PL ATELE T WBC 8.2 x10e3 /uL 3.4-10 .8 normal Not Available [facility] ([facility]) [address] [facility], [place], [address], 11/16/2024 06:08:16 11/16/19 25 11/16/2024 CBC WITH DIFFE RENTI AL/PL ATELE T RBC 5.57 x10e6 /uL 4.14-5 .80 normal Not Available [facility] ([facility]) [address] [place], [address], 11/16/2024 06:08:16 11/16/19 25 11/16/2024 CBC WITH DIFFE RENTI AL/PL ATELE T hemoglobin 16.7 g/dL 13.0-1 7.7 normal Not Available [facility] ([facility]) [address] [facility], [place], [address], 11/16/2024 06:08:16 11/16/19 25 11/16/2024 CBC WITH DIFFE RENTI AL/PL ATELE T hematocrit 50.5 % 37.5-5 1.0 normal Not Available [facility] ([facility]) [address] [place], [address], 11/16/2024 06:08:16 11/16/19 25 11/16/2024 CBC WITH DIFFE RENTI AL/PL ATELE T MCV 91 fL 79-97 normal Not Available [facility] ([facility]) [address] [place], [address], 11/16/2024 06:08:16 11/16/19 25 11/16/2024 CBC WITH DIFFE RENTI AL/PL ATELE T MCH 30.0 pg 26.6-3 3.0 normal Not Available [facility] ([facility]) [address] [facility], [place], [address], 11/16/2024 06:08:16 11/16/19 25 11/16/2024 CBC WITH DIFFE RENTI AL/PL ATELE T MCHC 33.1 g/dL 31.5-3 5.7 normal Not Available [facility] ([facility]) [address] [facility], [place], [address], 11/16/2024 06:08:16 11/16/19 25 11/16/2024 CBC WITH DIFFE RENTI AL/PL ATELE T RDW 13.2 % 11.6-1 5.4 Not Available [facility] ([facility]) [address] [facility], [place], [address], 11/16/2024 06:08:16 11/16/19 25 11/16/2024 CBC WITH DIFFE RENTI AL/PL ATELE T platelets 177 x10e3 /uL 150-45 0 normal Not Available [facility] ([facility]) [address] [facility], [place], [address], 11/16/2024 06:08:16 11/16/19 25 11/16/2024 CBC WITH DIFFE RENTI AL/PL ATELE T neutrophils 60 % not estab. normal Not Available [facility] ([facility]) [address] [facility], [place], [address], 11/16/2024 06:08:16 11/16/19 25 11/16/2024 CBC WITH DIFFE RENTI AL/PL ATELE T lymphs 27 % not estab. normal Not Available [facility] ([facility]) [address] [facility], [place], [address], 11/16/2024 06:08:16 11/16/19 25 11/16/2024 CBC WITH DIFFE RENTI AL/PL ATELE T monocytes 9 % not estab. normal Not Available [facility] ([facility]) [address] [place], [address], 11/16/2024 06:08:16 11/16/19 25 11/16/2024 CBC WITH DIFFE RENTI AL/PL ATELE T eos 3 % not estab. normal Not Available [facility] ([facility]) [address] [place], [address], 11/16/2024 06:08:16 11/16/19 25 11/16/2024 CBC WITH DIFFE RENTI AL/PL ATELE T basos 1 % not estab. normal Not Available [facility] ([facility]) [address] [facility], [place], [address], 11/16/2024 06:08:16 11/16/19 25 11/16/2024 CBC WITH DIFFE RENTI AL/PL ATELE T immature cells DIRECTOR OF GLOBAL TALENT Not Available [facility] ([facility]) [address] [place], [address], 11/16/2024 06:08:16 11/16/19 25 11/16/2024 CBC WITH DIFFE RENTI AL/PL ATELE T neutrophils (absolute) 4.9 x10e3 /uL 1.4-7. 0 normal Not Available [facility] ([facility]) [address] [place], [address], 11/16/2024 06:08:16 11/16/19 25 11/16/2024 CBC WITH DIFFE RENTI AL/PL ATELE T lymphs (absolute) 2.2 x10e3 /uL 0.7-3. 1 normal Not Available [facility] ([facility]) [address] [place], [address], 11/16/2024 06:08:16 11/16/19 25 11/16/2024 CBC WITH DIFFE RENTI AL/PL ATELE T monocytes(ab solute) 0.7 x10e3 /uL 0.1-0. 9 normal Not Available [facility] ([facility]) [address] [place], [address], 11/16/2024 06:08:16 11/16/19 25 11/16/2024 CBC WITH DIFFE RENTI AL/PL ATELE T eos (absolute) 0.2 x10e3 /uL 0.0-0. 4 normal Not Available [facility] ([facility]) [address] [facility], [place], [address], 11/16/2024 06:08:16 11/16/19 25 11/16/2024 CBC WITH DIFFE RENTI AL/PL ATELE T baso (absolute) 0.1 x10e3 /uL 0.0-0. 2 normal Not Available [facility] ([facility]) [address] [place], [address], 11/16/2024 06:08:16 11/16/19 25 11/16/2024 CBC WITH DIFFE RENTI AL/PL ATELE T immature granulocytes 0 % not estab. Not Available [facility] ([facility]) [address] [place], [address], 11/16/2024 06:08:16 11/16/19 25 11/16/2024 CBC WITH DIFFE RENTI AL/PL ATELE T immature grans (abs) 0.0 x10e3 /uL 0.0-0. 1 Not Available [facility] ([facility]) [address] [place], [address], 11/16/2024 06:08:16 11/16/19 25 11/16/2024 CBC WITH DIFFE RENTI AL/PL ATELE T NRBC DIRECTOR OF GLOBAL TALENT Not Available [facility] ([facility]) [address] [facility], [place], [address], 11/16/2024 06:08:16 11/16/19 25 11/16/2024 CBC WITH DIFFE RENTI AL/PL KASH T hematology comments: DIRECTOR OF GLOBAL TALENT Not Available [facility] ([facility]) [address] [facility] [place], [address], 11/16/2024 06:08:16 11/16/19 25 11/15/2024 COMP. METAB OLIC PANEL (14) glucose 99 mg/dL 70-99 normal Not Available [facility] ([facility]) [address] [facility] [place], [address], 11/16/2024 06:08:17 11/16/19 25 11/15/2024 COMP. METAB OLIC PANEL (14) BUN 23 mg/dL 8-27 normal Not Available [facility] ([facility]) [address] [facility] [place], [address], 11/16/2024 06:08:17 11/16/19 25 11/15/2024 COMP. METAB OLIC PANEL (14) sodium 142 mmol/ L 134-14 4 normal Not Available [facility] ([facility]) [address] [facility] [place], [address], 11/16/2024 06:08:17 11/16/19 25 11/15/2024 COMP. METAB OLIC PANEL (14) potassium 4.3 mmol/ L 3.5-5. 2 normal Not Available [facility] ([facility]) [address] [facility] [place], [address], 11/16/2024 06:08:17 11/16/19 25 11/15/2024 COMP. METAB OLIC PANEL (14) chloride 101 mmol/ L 96-106 normal Not Available [facility] ([facility]) [address] [facility] [place], [address], 11/16/2024 06:08:17 11/16/19 25 11/15/2024 COMP. METAB OLIC PANEL (14) carbon dioxide, total 21 mmol/ L 20-29 normal Not Available [facility] ([facility]) [address] [facility] [place], [address], 11/16/2024 06:08:17 11/16/19 25 11/15/2024 COMP. METAB OLIC PANEL (14) calcium 9.2 mg/dL 8.6-10 .2 normal Not Available [facility] ([facility]) [address] [facility] [place], [address], 11/16/2024 06:08:17 11/16/19 25 11/15/2024 COMP. METAB OLIC PANEL (14) albumin 4.4 g/dL 3.7-4. 7 normal Not Available [facility] ([facility]) [address] [facility] [place], [address], 11/16/2024 06:08:17 11/16/19 25 11/15/2024 COMP. METAB OLIC PANEL (14) AST (SGOT) 25 IU/L 0-40 normal Not Available [facility] ([facility]) [address] [facility] [place], [address], 11/16/2024 06:08:17 11/16/19 25 11/15/2024 COMP. METAB OLIC PANEL (14) ALT (SGPT) 23 IU/L 0-44 normal Not Available [facility] ([facility]) [address] [facility] [place], [address], 11/16/2024 06:08:17 11/16/19 25 11/16/2024 COMP. METAB OLIC PANEL (14) creatinine 0.99 mg/dL 0.76-1 .27 normal Not Available [facility] ([facility]) [address] [facility] [place], [address], 11/16/2024 06:08:17 11/16/19 25 11/16/2024 COMP. METAB OLIC PANEL (14) eGFR 76 mL/mi n/1.7 3 >59 normal Not Available [facility] ([facility]) [address] [facility] [place], [address], 11/16/2024 06:08:17 11/16/19 25 11/16/2024 COMP. METAB OLIC PANEL (14) BUN/creatini ne ratio 23 10-24 normal Not Available [facility] ([facility]) [address] [facility] [place], [address], 11/16/2024 06:08:17 11/16/19 25 11/16/2024 COMP. METAB OLIC PANEL (14) protein, total 6.8 g/dL 6.0-8. 5 normal Not Available [facility] ([facility]) [address] [facility] [place], [address], 11/16/2024 06:08:17 11/16/19 25 11/16/2024 COMP. METAB OLIC PANEL (14) globulin, total 2.4 g/dL 1.5-4. 5 Not Available [facility] ([facility]) [address] [facility] [place], [address], 11/16/2024 06:08:17 11/16/19 25 11/16/2024 COMP. METAB OLIC PANEL (14) bilirubin, total 0.8 mg/dL 0.0-1. 2 normal Not Available [facility] ([facility]) [address] [facility], [place], [address], 11/16/2024 06:08:17 11/16/19 25 11/16/2024 COMP. METAB OLIC PANEL (14) alkaline phosphatase 97 IU/L 44-121 normal Not Available [facility] ([facility]) [address] [facility] [place], [address], 11/16/2024 06:08:17 11/16/19 25 11/16/2024 LIPID PANEL cholesterol, total 145 mg/dL 100-19 9 normal Not Available [facility] ([facility]) [address] [facility] [place], [address], 11/16/2024 06:08:17 11/16/19 25 11/16/2024 LIPID PANEL triglyceride s 97 mg/dL 0-149 normal Not Available [facility] ([facility]) [address] [place], [address], 11/16/2024 06:08:17 11/16/19 25 11/16/2024 LIPID PANEL HDL cholesterol 59 mg/dL >39 normal Not Available [facility] ([facility]) [address] [place], [address], 11/16/2024 06:08:17 11/16/19 25 11/16/2024 LIPID PANEL VLDL cholesterol frida 18 mg/dL 5-40 Not Available [facility] ([facility]) [address] [place], [address], 11/16/2024 06:08:17 11/16/19 25 11/16/2024 LIPID PANEL LDL chol calc ([facility]) 68 mg/dL 0-99 Not Available [facility] ([facility]) [address] [place], [address], 11/16/2024 06:08:17 11/16/19 25 11/16/2024 LIPID PANEL LDL calc comment: DIRECTOR OF GLOBAL TALENT Not Available [facility] ([facility]) [address] [place], [address], 11/16/2024 06:08:17 11/16/19 25 11/16/2024 HEMOG LOBIN A1C hemoglobin A1C 5.7 % 4.8-5. 6 above high normal Predi abete s: 5.7 - 6.4 Diabe too: >6.4 Glyce angel contr ol for adult s with diabe too: <7.0 Not Available [facility] ([facility]) [address] [place], [address], 11/16/2024 06:08:18 11/16/19 25 11/16/2024 TSH RFX ON ABNOR MAL TO FREE T4 TSH 2.950 uIU/m L 0.450- 4.500 normal Not Available [facility] ([facility]) [address] [facility] [place], [address], 11/16/2024 06:08:19 11/16/19 25 11/15/2024 BASIC METAB OLIC PANEL (8) glucose 99 mg/dL 70-99 normal Not Available [facility] ([facility]) [address] [facility] [place], [address], 11/16/2024 06:08:22 11/16/19 25 11/15/2024 BASIC METAB OLIC PANEL (8) BUN 24 mg/dL 8-27 normal Not Available [facility] ([facility]) [address] [facility] [place], [address], 11/16/2024 06:08:22 11/16/19 25 11/15/2024 BASIC METAB OLIC PANEL (8) creatinine 0.96 mg/dL 0.76-1 .27 normal Not Available [facility] ([facility]) [address] [place], [address], 11/16/2024 06:08:22 11/16/19 25 11/15/2024 BASIC METAB OLIC PANEL (8) eGFR 79 mL/mi n/1.7 3 >59 normal Not Available [facility] ([facility]) [address] [place], [address], 11/16/2024 06:08:22 11/16/19 25 11/15/2024 BASIC METAB OLIC PANEL (8) BUN/creatini ne ratio 25 10-24 above high normal Not Available [facility] ([facility]) [address] [place], [address], 11/16/2024 06:08:22 11/16/19 25 11/15/2024 BASIC METAB OLIC PANEL (8) sodium 142 mmol/ L 134-14 4 normal Not Available [facility] ([facility]) [address] [place], [address], 11/16/2024 06:08:22 11/16/19 25 11/15/2024 BASIC METAB OLIC PANEL (8) potassium 4.2 mmol/ L 3.5-5. 2 normal Not Available [facility] ([facility]) [address] [facility], [place], [address], 11/16/2024 06:08:22 11/16/19 25 11/15/2024 BASIC METAB OLIC PANEL (8) chloride 102 mmol/ L 96-106 normal Not Available [facility] ([facility]) [address] [place], [address], 11/16/2024 06:08:22 11/16/19 25 11/15/2024 BASIC METAB OLIC PANEL (8) carbon dioxide, total 20 mmol/ L 20-29 normal Not Available [facility] ([facility]) [address] [place], [address], 11/16/2024 06:08:22 11/16/19 25 11/15/2024 BASIC METAB OLIC PANEL (8) calcium 9.2 mg/dL 8.6-10 .2 normal Not Available [facility] ([facility]) [address] [place], [address], 11/16/2024 06:08:22 11/16/19 25 11/16/2024 TSH RFX ON ABNOR MAL TO FREE T4 TSH 2.920 uIU/m L 0.450- 4.500 normal Not Available [facility] ([facility]) [address] [place], [address], 11/16/2024 06:08:23 05/16/20 22 05/10/2022 trans -thor acic echoc ardio gram (TTE) (PROC ) No observ ation record ed. [facility] [address] [facility], [place], [address], 06/01/2022 10:01:55 11/14/19 24 10/23/2023 trans -thor acic echoc ardio gram (TTE) (PROC ) No observ ation record ed. [facility] [address], [place], [address], 01/10/2024 11:04:18 12/19/19 24 12/19/2023 CT, abdom en + pelvi s, w/o contr ast No observ ation record ed. [facility] (Medical Records) [address] [place], [address], 01/10/2024 11:04:18 12/27/19 24 12/27/2023 US, retro perit oneum , compl ete No observ ation record ed. [facility] (Medical Records) [address] [place], [address], 01/10/2024 11:04:18 02/15/[address], abdom en + pelvi s, w/o contr ast No observ ation record ed. [facility] (Medical Records) [address] [place], [address], 04/30/2024 09:15:15 04/30/20 24 04/30/2024 XR, cervi frida spine No observ ation record ed. [facility] [address] [place], [address], 11/13/2024 14:16:12 04/30/20 24 04/30/2024 XR, cervi [...] nced at 3-C4 on the right. WSN: [id number] Orderi ng Physic tommy: Fabrizio Gonsalves Dictat ed By: Rogerio cordero MD, Shagufta Stiles Dictat ed Date/T aleida: 3:08 pm Review ed By: Rogerio cordero MD, Shagufta Stiles Signed By: Rogerio cordero MD, Shagufta Stiles Signed Date/T aleida: 3:08 pm Transc ribed By: CSB Transc ribed Date/T aleida: 3:05 pm Patien t Class: Outpat ient [facility] (Outpt Imaging) [address], [place], [address], 11/13/2024 14:16:12 11/20/19 25 11/19/2024 luisito CAMACHO y No observ ation record ed. [facility] (Medical Records) [address] [place], [address], 11/19/2024 17:55:12 11/26/19 25 11/25/2024 ECG 12-le ad No observ ation record ed. [facility] [address] [place], [address], 11/25/2024 20:46:12 11/26/19 25 ECG 12-le ad No observ ation record ed. [facility] [address] [place], [address], 11/25/2024 20:46:13 12/18/19 25 11/22/2024 trans thora cic echoc ardio gram (TTE) compl ete (cont rast/ bubbl e/3D PRN) No observ ation record ed. [facility] [address], [place], [address], 12/17/2024 15:53:48 12/19/19 25 11/22/2024 trans -thor acic echoc ardio gram (TTE) (PROC ) No observ ation record ed. [facility] [address], [place], [address], 12/18/2024 12:48:13 Result Notes Documentation Provider Name and Address [...] pronounced at 3-C4 on the right. WSN: [id number] Ordering Physician: Marcello Gonsalves Dictated By: Jase Chauhan MD Dictated Date/Time: 04/30/24 3:08 pm Reviewed By: Jase Chauhan MD Signed By: Jase Chauhan MD Signed Date/Time: 04/30/24 3:08 pm Transcribed By: LEELA Transcribed Date/Time: 04/30/24 3:05 pm Patient Class: Outpatient Marcello Gonsalves PA-C [address] [facility] [address], [place], [address], [facility] 11/13/2024 14:16:12 Problems Name Problem SNOMED Code Status Onset Date Resolution Date Notes Provider Name and Address Organization Details Recorded Time Atrial fibrilla tion 21649574 Active 2013 Not Available [facility] 1 07:07:10 Hyperpla ivon of prostate 243351867 Completed 201304/30/2024 Marcello Gonsalves PA-C [address] [facility] [address], [place], [address] , [facility] 4 09:21:03 Cataract 355073873 Completed 201212/31/2013 RECORDED 11/30/19 13 9:27AM BY VILLA WATTERS MA, BENNYATI ON/ADDEN DUM Timo D'Alessand ro null, [facility] 5 09:07:33 Chest pain 52897599 Completed 201212/31/2013 RECORDED 11/30/19 13 9:26AM BY VILLA WATTERS MA, GALLO ON/ADDEN DUM Timo Heide'Alessand ro null, [facility] 5 09:07:33 Closed fracture of foot 298494569 Completed 200812/31/2013 IMPRESSI ON: RIGHT; RECORDED 01/15/20 09 8:47AM BY GALLO CHAU ON/ADDEN DUM Timo D'Alessand ro null, [facility] 5 09:07:33 Screenin g for malignan t neoplasm of colon Completed 201212/31/2013 RECORDED 11/30/19 13 9:26AM BY VILLA WATTERS MA, GALLO ON/ADDEN DUM Timo D'Alessand ro null, [facility] 5 09:07:33 Diarrhea 13360978 Completed 201212/31/2013 RECORDED 11/30/19 13 9:26AM BY VILLA WATTERS MA, GALLO ON/ADDEN DUM Timo Heide'Alessand ro null, [facility] 5 09:07:33 Respirat ory finding 566200445 Completed 200812/31/2013 RECORDED 04/07/20 09 11:38AM BY GALLO CHAU ON/ADDEN DUM Timo blakely, [facility] 5 09:07:33 Elevated blood-pr essure reading without diagnosi s of hyperten juan 919725785 Completed 201306/02/2016 RECORDED 11/12/19 14 9:17AM BY VILLA WATTERS MA, OFFICE VISIT Eveline blakely, [facility] 6 09:52:15 Urinary tract obstruct ion 7256288 Completed 201212/31/2013 RECORDED 11/30/19 13 9:26AM BY VILLA WATTERS MA, GALLO ON/ADDEN DUM Timo blakely, [facility] 5 09:07:33 Benign prostati c hyperpla ivon 863203666 Active 2012 Not Available [facility] 1 07:07:10 Lower urinary tract symptoms 234591921 Completed 201206/02/2016 RECORDED 11/30/19 13 9:26AM BY VILLA WATTERS MA, BENNYATI ON/ADDEN DUM Eveline blakely, [facility] 6 09:52:01 Gastroes ophageal reflux disease 792785605 Active 2013 Not Available [facility] 1 07:07:10 Influenz a vaccine needed 95541192003 06 Completed 200812/31/2013 DATE: 02/18/20 09; RECORDED 11/30/19 13 9:26AM BY VILLA WATTERS MA, GALLO ON/ADDEN DUM Timo blakely, [facility] 5 09:07:33 Adult health examinat ion Completed 201211/09/2014 STORY: COLONOSC OPY DUE 2021/NICKIE CHAVEZ; RECORDED 11/30/19 13 9:59AM BY TIMO MALDONADO MD, OFFICE VISIT Timo blakely, [facility] 5 09:07:33 Follow-u p encounte r Completed 201212/31/2013 RECORDED 11/30/19 13 9:27AM BY VILLA WATTERS MA, GALLO ON/ADDEN ZOILA Soto ro null, [facility] 5 09:07:33 Hyperlip idemia 70519291 Active 2013 Not Available [facility] 1 07:07:10 Hypothyr oidism 07140304 Active 2013 Not Available [facility] 1 07:07:10 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 Not Available [facility] 1 07:07:10 Impaired fasting glycemia 108458257 Completed 201301/04/2023 Marcello Gonsalves PA-C [address], [place], [address] , [facility] 3 14:21:33 Injury of lumbosac ral plexus 52201110 Completed 200812/31/2013 RECORDED 01/15/20 09 8:47AM BY [facility]O [facility]AU [facility] null, [facility] 5 09:07:33 Nonvenom ous insect bite of multiple sites 001730482 Completed 201212/31/2013 IMPRESSI ON: L FOREARM; RECORDED 11/30/19 13 9:27AM BY VILLA WATTERS MA, GALLO ON/ELA Soto ro zora, [facility] 5 09:07:33 Malaise and fatigue 125281028 Completed 201212/31/2013 RECORDED 11/30/19 13 9:27AM BY VILLA WATTERS MA, GALLO GÓMEZ/ELA lucio null, [facility] 5 09:07:33 Patient status finding 271976522 Completed 201311/09/2014 RECORDED 11/12/19 14 9:18AM BY VILLA WATTERS MA, OFFICE VISIT Timo Soto ro null, [facility] 5 09:07:33 Radiolog y result abnormal [id number] Completed 201212/31/2013 RECORDED 11/30/19 13 9:27AM BY VILLA WATTERS MA, ANNOTATI ON/ADDEN DUM Timo CabelloAlessand ro null, [facility] 5 09:07:33 Open wound of lateral abdomina l wall 430543970 Completed 200812/31/2013 RECORDED 01/15/20 09 8:47AM BY WINNIE CHRISTOPHER, BENNYATI ON/ADDEN DUM Timo CabelloAleajand ro null, [facility] 5 09:07:33 Joint pain in ankle and foot Completed 200812/31/2013 RECORDED 04/07/20 09 11:38AM BY WINNIE CHRISTOPHER, BENNYATI ON/ADDEN DUM Timo Hui'Alessand ro null, [facility] 5 09:07:33 Palpitat ions 54273160 Completed 200812/31/2013 IMPRESSI ON: BRIEF, EKG WITH FIRST DEGREE AV BLOCK, NO SNCOPE OR DIZZINES S, DO LABS AND STRESS ECHO; RECORDED 04/07/20 09 11:38AM BY GALLO CHAU ON/ADDEN DUM Timo CabelloAlessand ro null, [facility] 5 09:07:33 Pre-surg jarad evaluati on Completed 201212/31/2013 RECORDED 11/30/19 13 9:27AM BY VILLA WATTERS MA, GALLO ON/ADDEN DUM Timo Hui'Alessand ro null, [facility] 5 09:07:33 Adult health examinat ion Completed 201212/31/2013 RECORDED 11/30/19 13 9:26AM BY VILLA WATTERS MA, GALLO ON/ADDEN DUM Timo Hui'Alessand ro null, [facility] 5 09:07:33 Inflamma tory disease of mucous membrane 55550062 Completed 201212/31/2013 RECORDED 11/30/19 13 9:27AM BY VILLA WATTERS MA, BENNYATI ON/ADDEN DUM Timo D'Alessand ro null, [facility] 5 09:07:33 Cataract 718438962 Completed 201201/20/2014 RECORDED 11/30/19 13 9:27AM BY VILLA WATTERS MA, ANNOTATI ON/ADDEN DUM Timo D'Alessand ro null, [facility] 5 09:07:33 Chest pain 98967463 Completed 201201/20/2014 RECORDED 11/30/19 13 9:26AM BY VILLA WATTERS MA, ANNOTATI ON/ADDEN DUM Timo D'Alessand ro null, [facility] 5 09:07:33 Closed fracture of foot 365083186 Completed 200801/20/2014 IMPRESSI ON: RIGHT; RECORDED 01/15/20 09 8:47AM BY GALLO CHAU ON/ADDEN DUM Timo D'Alessand ro null, [facility] 5 09:07:33 Screenin g for malignan t neoplasm of colon Completed 201201/20/2014 RECORDED 11/30/19 13 9:26AM BY VILLA WATTERS MA, GALLO ON/ADDEN DUM Timo D'Alessand ro null, [facility] 5 09:07:33 Diarrhea 08948936 Completed 201201/20/2014 RECORDED 11/30/19 13 9:26AM BY VILLA WATTERS MA, GALLO ON/ADDEN DUM Timo D'Alessand ro null, [facility] 5 09:07:33 Respirat ory finding 705119655 Completed 200801/20/2014 RECORDED 04/07/20 09 11:38AM BY MA ANITHA ASHWIN, ANNOTATI ON/ADDEN DUM Timo D'Alessand ro null, [facility] 5 09:07:33 Urinary tract obstruct ion 2979464 Completed 201201/20/2014 RECORDED 11/30/19 13 9:26AM BY VILLA WATTERS MA, BENNYATI ON/ADDEN DUM Timo D'Alessand ro null, [facility] 5 09:07:33 Influenz a vaccine needed 42604301759 06 Completed 200801/20/2014 DATE: 02/18/20 09; RECORDED 11/30/19 13 9:26AM BY VILLA WATTERS MA, GALLO ON/ADDEN DUM Timo D'Alessand ro null, [facility] 5 09:07:33 Adult health examinat ion Completed 201301/20/2014 STORY: COLONOSC OPY DUE 2021/NICKIE CHAVEZ; RECORDED 11/12/19 14 9:16AM BY VILLA WATTERS MA, BENNYATI ON/ADDEN DUM Timo D'Alessand ro null, [facility] 5 09:07:33 Follow-u p encounte r Completed 201201/20/2014 RECORDED 11/30/19 13 9:27AM BY VILLA WATTERS MA, GALLO ON/ADDEN DUM Timo D'Alessand ro null, [facility] 5 09:07:33 Injury of lumbosac ral plexus 79880623 Completed 200801/20/2014 RECORDED 01/15/20 09 8:47AM BY BENNY CHAUATI ON/ADDEN DUM Timo D'Alessand ro null, [facility] 5 09:07:33 Nonvenom ous insect bite of multiple sites 061522504 Completed 201201/20/2014 IMPRESSI ON: L FOREARM; RECORDED 11/30/19 13 9:27AM BY VILLA WATTERS MA, GALLO ON/ADDEN DUM Timo D'Alessand ro null, [facility] 5 09:07:33 Malaise and fatigue 790599819 Completed 201201/20/2014 RECORDED 11/30/19 13 9:27AM BY VILLA WATTERS MA, ANNOTATI ON/ADDEN DUM Timo D'Alessand ro null, [facility] 5 09:07:33 Radiolog y result abnormal [id number] Completed 201201/20/2014 RECORDED 11/30/19 13 9:27AM BY VILLA WATTERS MA, BENNYATI ON/ADDEN DUM Timo D'Alessand ro null, [facility] 5 09:07:33 Open wound of lateral abdomina l wall 237109069 Completed 200801/20/2014 RECORDED 01/15/20 09 8:47AM BY BENNY CHAUATI ON/ADDEN DUM Timo Hui'Alessand ro null, [facility] 5 09:07:33 Joint pain in ankle and foot Completed 200801/20/2014 RECORDED 04/07/20 09 11:38AM BY B[facility]ATI [facility] Timo Hui'Alessand ro null, [facility] 5 09:07:33 Palpitat ions 19738493 Completed 200801/20/2014 IMPRESSI ON: BRIEF, EKG WITH FIRST DEGREE AV BLOCK, NO SNCOPE OR DIZZINES S, DO LABS AND STRESS ECHO; RECORDED 04/07/20 09 11:38AM BY BENNY CHAUATI ON/ADDEN DUM Timo Heide'Alessand ro null, [facility] 5 09:07:33 Pre-surg jarad evaluati on Completed 201201/20/2014 RECORDED 11/30/19 13 9:27AM BY VILLA WATTERS MA, ANNOTATI ON/ADDEN DUM Timo Heide'Alessand ro null, [facility] 5 09:07:33 Inflamma tory disease of mucous membrane 75014958 Completed 201201/20/2014 RECORDED 11/30/19 13 9:27AM BY VILLA WATTERS MA, ANNOTATI ON/[facility] 5 09:07:33 Body mass index 40+ - severely obese 248327424 Active Not Available [facility] 1 07:07:10 Degenera tion of lumbar interver tebral disc 22049226 Active 2013 Not Available [facility] 1 07:07:10 Knee pain Completed 06/02/2016 Eveline blakely, [facility] 6 09:51:58 Dependen ce on continuo us positive airway pressure ventilat ion 756796977 Active 2017 Not Available [facility] 1 07:07:10 Essentia l hyperten juan 01294590 Active 2019 Not Available [facility] 1 07:07:10 Numbness of foot 321604446 Completed 202101/08/2023 Marcello Gonsalves PA-C [address], [place], [address] , [facility] 3 13:16:55 Prediabe too 644401515 Active 2021 Marcello Gonsalves PA-C [address], [place], [address] , [facility] 2 17:29:55 Feeling of lump in throat 735309840 Completed 202101/08/2023 Marcello Gonsalves PA-C [address], [place], [address] , [facility] 3 13:16:19 Venous stasis ulcer with edema of left lower leg 52163213523 428711 Active 2022 Marcello Gonsalves PA-C [address], [place], [address] , [facility] 3 13:12:29 Constipa tion 32571471 Active 2022 Marcello Gosnalves PA-C [address], [place], [address] , [facility] 3 13:12:49 Kidney stone 84156496 Completed 202304/30/2024 Marcello Gonsalves PA-C [address], [place], [address] , [facility] 4 09:20:48 History of calculus of kidney 673382054 Active 2023 Marcello Gonsalves PA-C [address], [place], [address] , [facility] 4 09:17:55 Obstruct ricky sleep apnea syndrome 16256180 Active 2023 Marcello Gonsalves PA-C [address], [place], [address] , [facility] 4 09:24:16 Cervical radiculo meche 47230038 Active 2023 Marcello Gonsalves PA-C [address], [place], [address] , [facility] 4 09:36:13 Problem Notes None recorded. Procedures Surgical History Date Name Laterality Status Provider Name and Address Organization Details Recorded Time 10/22/19 23 Colonoscopy completed Kirstin Wheeler [facility] 01/11/2024 10:52:25 03/30/20 20 Six-Item Cognitive Test completed Lisy Sands MA [facility] 03/30/2020 10:06:12 11/29/19 19 Mini-Cog Test completed Noemi Carranza MA [facility] 11/28/2018 09:35:49 11/24/19 18 Mini-Cog Test completed Yumiko dugan MA [facility] 11/23/2017 09:31:34 06/02/20 16 Fall Risk Assessment completed Eveline Bigby MA [facility] 06/02/2016 10:04:29 06/02/20 16 Mini-Cog Test completed Eveline Seth MA [facility] 06/02/2016 10:04:37 05/26/20 15 Fall Risk Assessment completed Alex Peterson [facility] 05/26/2015 09:00:41 05/26/20 15 Mini-Cog Test completed Alex Peterson [facility] 05/26/2015 09:00:41 05/23/20 14 Fall Risk Assessment completed [facility] 05/23/2014 11:01:08 05/23/20 14 Mini-Cog Test completed [facility] 05/23/2014 11:01:08 08/11/19 08 Unlisted px foot/toes completed Yumiko dugan [facility] 11/23/2017 09:18:41 06/12/18 49 Tonsillectomy completed Nathaly Danielle [facility] [facility] 12/01/2021 09:23:46 Imaging Results None recorded. Procedure [...] 01/06 completed RECORDED 01/07/20 11 8:56AM BY DUGLAS MANN, GALLO ON/ELA DUM; Not Available Not Available Not Available Keflex [...] 12/02/19 12 4:47PM BY TIMO MALDONADO MD, GALLO ON/ELA DUM; Not Available Not Available Not Available levothyro [...] Available Not Available Not Available Fluad Quad (65yr up)(PF) 60 mcg (15 mcg x 4)/0.5mL IM syringe PHARMACY ADMINIST ERED 03/30 completed Not Available Not Available Not Available Vitals Date Recorded Body height Body mass index (BMI) Body weight Oxygen saturation Oxygen saturation in Arterial blood by Pulse oximetry Heart rate Body temperature Systolic And Diastolic Provider Name and Address Organization Details Last Updated DateTime 5 180.34 cm 42.9 kg/m2 754363. 66 g 98 % 98 % 78 /min 97.7 [degF] 115/80 mm[Hg] Noemi Carranza MA [facility] 5 13:52:46 Date Recorded Body height Body mass index (BMI) Body weight Heart rate Oxygen saturation Oxygen saturation in Arterial blood by Pulse oximetry Body temperature Systolic And Diastolic Provider Name and Address Organization Details Last Updated DateTime 3 180.34 cm 42.1 kg/m2 415277. 1 g 87 /min 97 % 97 % 97.9 [degF] 124/83 mm[Hg] Nathaly Danielle MA [facility] 3 13:17:24 Date Recorded Systolic And Diastolic Provider Name and Address Organization Details Last Updated DateTime 01/10/2024 126/82 mm[Hg] Marcello Gonsalves PA-C [address], [address], [facility] 01/10/2024 11:25:24 Date Recorded Body height Body mass index (BMI) Body weight Heart rate Oxygen saturation Oxygen saturation in Arterial blood by Pulse oximetry Body temperature Systolic And Diastolic Provider Name and Address Organization Details Last Updated DateTime 4 180.34 cm 41.1 kg/m2 498868. 75 g 74 /min 97 % 97 % 97.7 [degF] 142/84 mm[Hg] Geovanna Mejia MA [facility] 4 10:24:30 Date Recorded Systolic And Diastolic Provider Name and Address Organization Details Last Updated DateTime 04/30/2024 114/68 mm[Hg] Marcello Gonsalves PA-C [address] [facility], [place], [address], [facility] 04/30/2024 09:29:52 Date Recorded Body height Body mass index (BMI) Body weight Heart rate Oxygen saturation Oxygen saturation in Arterial blood by Pulse oximetry Body temperature Systolic And Diastolic Provider Name and Address Organization Details Last Updated DateTime 4 180.34 cm 41.4 kg/m2 398321. 93 g 82 /min 97 % 97 % 97.1 [degF] 136/92 mm[Hg] [facility] 4 08:41:26 Date Recorded Systolic And Diastolic Provider Name and Address Organization Details Last Updated DateTime 06/01/2022 124/80 mm[Hg] Marcello Gonsalves PA-C [address] [facility] [address], [address], [facility] 06/01/2022 10:01:55 Date Recorded Body height Body mass index (BMI) Body weight Heart rate Oxygen saturation Oxygen saturation in Arterial blood by Pulse oximetry Body temperature Systolic And Diastolic Provider Name and Address Organization Details Last Updated DateTime 2 180.34 cm 45 kg/m2 669180. 34 g 63 /min 98 % 98 % 96.7 [degF] 153/83 mm[Hg] [facility] 2 09:21:36 Date Recorded Body height Body mass index (BMI) Body weight Heart rate Oxygen saturation Oxygen saturation in Arterial blood by Pulse oximetry Body temperature Systolic And Diastolic Provider Name and Address Organization Details Last Updated DateTime 3 180.34 cm 40 kg/m2 362103. 01 g 78 /min 97 % 97 % 97.6 [degF] 138/98 mm[Hg] Yumiko quick [facility] 3 09:46:24 Social History Question Answer Notes LastModified by Organizat ion Details LastModified Time Tobacco Smoking Status Never Smoker Lore blakely [facility] 05/23/2014 11:01:07 Do You Have An Advance [...] Or Greater Than 100 Degrees Fahrenheit? No [email or web address] Information not available 03/30/2020 Are You Or Anyone In Your Household A Health Care Provider Or Emergency Responder? No [email or web address] Information not available 03/30/2020 To The Best Of Your Knowledge Have You Been In Close Proximity To Any Individual Who Tested Positive For COVID-19? No Information not available 03/30/2020 What Was The [...] available 05/23/2014 Are you currently employed? No Information not available 04/09/2015 Are you able to walk? YESWOREST Information not available 12/01/2021 Are you able to care for yourself? Yes Information not available 04/09/2015 What is your occupation? Retired Information not available 12/01/2021 What is your exercise level? None Information not available 05/23/2014 Mental Status None recorded. Family History Relationship Description Onset Age of this Age Resolved Age Notes LastModified by Organization Details LastModified Time Mother Diabetes mellitus [email or web address] Not available 11/12/2015 10:54:41 Father Carcinoma in situ of lung 34 [email or web address] Not available 09:18:53 Medical History Condition Response Hypothyroidism Y Obesity Y Arthritis Y High Cholesterol Y Heart Problems Y Bladder Problems Y Reflux/GERD Y Immunizations Vaccine Type Date Status Note Provider Nam e and Address Organization Details Recorded Time Influenza, split virus, trivalent, PF 4 completed Sharlene blakely [facility] 04/22/2021 11:10:35 zoster live [address] [facility] [place] [place] 06/01/2022 09:21:12 Influenza, high-dose, quadrivalent, PF 1 completed WINNIE Hoffman [facility] 06/01/2022 09:21:12 COVID-19, mRNA, LNP-S, PF, 100 mcg/0.5mL dose or 50 mcg/0.25mL dose 1 completed WINNIE Hoffman [facility] 06/01/2022 09:21:12 Influenza, adjuvanted, quadrivalent, PF 0 completed WINNIE Hoffman [facility] 09/23/2021 09:07:10 Influenza, high-dose, trivalent, PF 9 completed WINNIE Hoffman [facility] 09/23/2021 09:07:10 Influenza, high-dose, trivalent, PF 8 completed WINNIE Hoffman [facility] 09/23/2021 09:07:10 Influenza, high-dose, trivalent, PF 6 completed Nathaly CarlosWINNIE Mccarthy [facility] 09/23/2021 09:07:10 COVID-19, mRNA, LNP-S, bivalent, PF, 50 mcg/0.5 mL or 25mcg/0.25 mL dose 2 completed WINNIE Hoffman [facility] 06/01/2022 09:21:12 pneumococcal polysaccharide PPV23 8 completed WINNIE Hoffman [facility] 06/01/2022 09:21:12 Influenza, high-dose, quadrivalent, PF 2 completed WINNIE Hoffman [facility] 06/01/2022 09:21:12 Tdap 5 completed WINNIE Hoffman [facility] 06/01/2022 09:21:12 Pneumococcal conjugate PCV 13 6 completed Nathaly Atkinszafar WINNIE zora, [facility] 06/01/2022 09:21:12 Influenza, high-dose, trivalent, PF 5 completed Nathaly Gonzalez Lolis WINNIE null, [facility] 06/01/2022 09:21:13 Influenza, high-dose, trivalent, PF 7 completed Nathaly Danielle WINN[place] zora, [facility] 01/04/2023 13:16:31 COVID-19, mRNA, LNP-S, PF, 50 mcg/0.5 mL 4 completed Kirstin blakely, [facility] 04/08/2024 08:54:00 Influenza, high-dose, trivalent, PF 4 completed Kirstin blakely, [facility] 04/08/2024 08:54:00 Influenza, adjuvanted, quadrivalent, PF 3 completed Nathaly Danielle WIN[place] zora, [facility] 04/30/2024 08:34:17 COVID-19, mRNA, LNP-S, PF, 50 mcg/0.5 mL 3 completed Nathaly Atkinszafar [place] zora, [facility] 04/30/2024 08:34:17 Td (adult), 2 Lf tetanus toxoid, preservative free, adsorbed 4 completed Sharleneneelam blakely, [facility] 04/22/2021 11:10:35 Influenza, split virus, trivalent, preservative 8 completed Sharlene Nicholsonneelam blakely, [facility] 04/22/2021 11:10:35 Influenza, split virus, trivalent, preservative 9 completed Sharlene Nicholsonneelam blakely, [facility] 04/22/2021 11:10:35 Influenza, split virus, trivalent, preservative 0 completed Sharlene Bharat blakely [facility] 04/22/2021 11:10:35 Influenza, split virus, trivalent, preservative 1 completed Sharlene Bharat blakely [facility] 04/22/2021 11:10:35 Past Encounters Encounter ID Performer Location Encounter Start Date Encounter Closed Date Diagnosis/Indication Diagnosis SNOMED-CT Code Diagnosis ICD10 Code Diagnosis Note [id number] [facility] [address] [facility] [place] [address] 08/27/2007 00:00:00 [id number] [facility] [facility] [address] [facility] [place] [address] 12/26/2007 00:00:00 [id number] [facility] [facility]ce [address] [facility] [place] [address] 12/26/2007 00:00:00 [id number] [facility] [facility] [address] [facility] [place] [address] 12/26/2007 00:00:00 [id number] [facility] erce [address] [facility] [place] [address] 02/04/2008 00:00:00 [id number] [facility] erce [address] [facility] [place] [address] 04/04/2008 00:00:00 [id number] auto[facility] erce [address] [facility] [place] [address] 04/04/2008 00:00:00 [id number] [facility] erce [address] [facility] [place] [address] 04/04/2008 00:00:00 [id number] [employer] erce [address] [facility] [place] [address] 04/04/2008 00:00:00 [id number] [facility] [facility] [address] [facility] [place] [address] 01/14/2009 00:00:00 [id number] [facility] erce [address] [place] [address] 01/14/2009 00:00:00 [id number] [facility] [facility] [address] [place] [address] 01/14/2009 00:00:00 [id number] auto[employer] erce [address] [place] [address] 01/14/2009 00:00:00 [id number] auto[employer] erce [address] [place] [address] 02/17/2009 00:00:00 [id number] auto[facility] erce [address] [facility] [address] [place] [address] 02/17/2009 00:00:00 [id number] auto[facility]Comm erce [address] [facility] [place] [address] 02/17/2009 00:00:00 [id number] auto[facility]Comm erce [address] [facility] [address] [place] [address] 02/17/2009 00:00:00 [id number] [facility] erce [address] [facility] [place] [address] 05/22/2009 00:00:00 [id number] auto[facility]Comm erce [address] [facility] [place] [address] 05/22/2009 00:00:00 [id number] auto[facility]Comm erce [address] [facility] [place] [address] 05/22/2009 00:00:00 [id number] auto[facility] erce [address] [facility] [address] [place] [address] 05/22/2009 00:00:00 [id number] auto[facility]Comm erce [address] [facility] [place] [address] 10/09/2009 00:00:00 [id number] auto[facility] erce [address] [facility] [address] [place] [address] 10/09/2009 00:00:00 [id number] auto[facility]Comm erce [address] [place] [address] 10/09/2009 00:00:00 [id number] auto[employer]Comm erce [address] [place] [address] 07/05/2010 00:00:00 [id number] auto[employer] erce [address] [place] [address] 11/11/2010 00:00:00 [id number] auto[employer]Comm erce [address] [place] [address] 11/11/2010 00:00:00 [id number] auto[facility]Comm erce [address] [place] [address] 11/11/2010 00:00:00 [id number] auto[facility]Comm erce [address] [facility] [address] [place] [address] 12/27/2010 00:00:00 [id number] autoEComm erce [address] [facility] [address] [place] [address] 12/27/2010 00:00:00 [id number] autoEComm erce [address] [facility] [address] [place] [address] 12/27/2010 00:00:00 [id number] auto[facility]Comm erce [address] [facility] [address] [place] [address] 02/25/2011 00:00:00 [id number] auto[facility] erce [address] [place] [address] 02/25/2011 00:00:00 [id number] auto[facility]Comm erce [address] [place] [address] 10/03/2011 00:00:00 [id number] autoEComm erce [address] [facility] [place] [address] 10/03/2011 00:00:00 [id number] autoEComm erce [address] [place] [address] 11/28/2011 00:00:00 [id number] autoEComm erce [address] [place] [address] 11/28/2011 00:00:00 [id number] autoEComm erce [address] [place], [place] [address] 11/29/2012 00:00:00 [id number] autoEComm erce [address] [facility] [place] [address] 11/29/2012 00:00:00 [id number] autoEComm erce [address] [facility] [address] [place], [place] [address] 11/29/2012 00:00:00 [id number] auto[facility]Comm erce [address] [facility] [place], [place] [address] 11/11/2013 00:00:00 [id number] autoEComm erce [address] [facility] [place] [address] 11/11/2013 00:00:00 [id number] Timo lucio MD Main Office [address] [address] [place], [place] [address] 05/23/2014 10:44:14 05/23/2014 11:54:13 Adult health examination [id number] [facility] for [facility] 545269816 Atrial fibrillation 23386951 Hypothyroidism 89166062 Benign pro static hyperplasia 892997994 Hyperlipidemia 14324180 Body mass index 40+ - severely obese 191727749 [id number] YVETTE Garvey Main Office [address] [facility] [address] [place], [place] [address] 11/07/2014 09:57:13 11/07/2014 10:31:09 Pain in calf 231037859 doppler negative to r/o dvt. suspect ruptured bakers cyst. heat to area. call if worsening. Body mass index 40+ - severely obese 198671713 Atrial fibrillation 93900400 he is on anticoagul ant so risk dvt is low [id number] Timo lucio MD Main Office [address] [address] [place] [address] 11/24/2014 09:22:45 11/24/2014 10:04:03 Atrial fibrillation 26608330 continue meds Hyperlipidemia 70263300 Elevated blood-pressure reading without diagnosis of hypertension 123590582 pt will follow home bp and continue meds /metoprolo l helping bp as well as afib Body mass index 40+ - severely obese 774849661 Gastroesop hageal reflux disease 748894138 [id number] Timo lucio MD Main Office [address] [address] [place] [address] 03/12/2015 09:09:34 03/12/2015 09:27:18 Influenza vaccine needed 5100046276 106 Z28.3 Administra tion of diphtheria, pertussis, and tetanus vaccine 941817816 Z23 [id number] YVETTE Pascal Main Office [address] [address] [place] [address] 04/09/2015 13:21:57 04/09/2015 13:44:07 Knee pain 49826837 M25.561 Ice 4 times dailyx 20 minutes at a time, rest, ice elevate, use brace for compressio n, may take aleve 2 tabs BID x 5-7 days. If sx persist in 1-2 weeks please return as you may need imaging/ referral. Atrial fibrillation 4943 6004 I48.91 Stable on current meds, do not take NSAID > 7 days with eliquis. [id number] Timo lucio MD Main Office [address] [address] [place] [address] 05/26/2015 08:44:49 05/26/2015 09:38:30 Adult health examination 142671320 Z00.00 advised pt to get pneumonia vaccines and he is not due for colonoscop y till age 82 if he chooses Atrial fibrillation 4943 6004 I48.91 continue meds Hyperlipidemia 34289311 E78.5 Hypothyroidism 25990698 E03.9 [id number] Marcello Gonsalves PA-C Main Office [address] [address] [place] [address] 11/12/2015 10:43:42 11/12/2015 12:04:21 Knee pain 94114820 M25.561 [id number] Marcello Gonsalves PA-C Main Office [address] [address] [place] [address] 12/16/2015 09:01:26 12/16/2015 10:01:32 Knee pain 28258111 M25.561 c/o Right knee pain since 03/26 - no significan t improvemen t c PT - mild OA on xray, ? meniscal tear vs. other -- ortho eval [id number] Timo lucio MD Main Office [address] [address] [place] [address] 03/14/2016 13:57:54 03/14/2016 15:34:09 Painless rectal bleeding 245025455 K62.5 pt will hold eliquis for a week and f/u w/ both GI and cardiology [id number] Timo lucio MD Main Office [address] [address] [place] [address] 06/02/2016 09:45:11 06/02/2016 10:48:41 Adult health examination 210798182 Z00.00 advised pt to get pneumonia vaccines Administra tion of pneumococcal vaccine 42057323 Z23 Body mass index 40+ - severely obese 326512214 Z68.41 Atrial fibrillation 4943 6004 I48.91 continue meds [id number] Marcello Gonsalves PA-C Main Office [address] [address] [place] [address] 10/12/2016 08:46:54 10/12/2016 09:41:42 Upper respiratory infection 69070841 J06.9 25 minute office visit with greater than 50% of the visit face-to-fa ce with the patient and/or family providing counseling and/or coordinati on of care. Cough 60286434 R05 check cxr to r/o pna - rx if + Atrial fibrillation 4943 6004 I48.91 f/u c card tomorrow [id number] Marcello Gonsalves PA-C Main Office [address] [address] [place] [address] 10/17/2017 14:37:33 10/17/2017 15:40:51 Deep avulsion wound 151172520 T14.8XXA provided local wound care - irrigated [...] a few extra supplies Pain in toe 550955482 M7 9.675 and edema s/p 100 lb trap door fell on it - will check xray and rx c abx - see above for considerat ion of possible rx to help prevent osteomyeli tis -- if + fx will get ortho eval too [id number] Timo lucio MD Main Office [address] [place] [address] [place] [address] 11/22/2017 13:41:38 11/22/2017 15:08:49 [id number] Timo lucio MD Main Office [address] [place] [address] [place] [address] 11/23/2017 09:13:43 11/23/2017 10:26:37 Adult health examination 822116384 Z00.00 advised pt to get pneumonia vaccines Hypothyroidism 16072633 E03.9 Hyperlipidemia 45277695 E78.5 Administra tion of pneumococcal vaccine 03417182 Z23 Varicella vaccination 68 665662 Z23 Body mass index 40+ - severely obese 392714462 E66.01 Z68.41 Atrial fibrillation 4943 6004 I48.91 continue meds Serum crea tinine above reference range 480347829 R79.89 [id number] Lio Langley MD Main Office [address] [place] [address] [place] [address] 11/28/2018 09:23:42 11/28/2018 10:49:50 Adult health examination 438798153 Z00.00 cont f/u c derm *will fwd this note to card* Osteoarthr itis of right knee joint 3002209130 65750 M17.11 s/p mri, cont f/u c ortho Hypothyroidism 21746920 E03.9 Hyperlipidemia 62897618 E78.5 Body mass index 40+ - severely obese 415570347 E66.01 Z68.41 Atrial fibrillation 4943 6004 I48.91 continue meds, cont f/u c card - see below Gastroesop hageal reflux disease 083721093 K21.9 stable, cont ppi as dir Dependence on continuous positive airway pressure ventilation 186233105 Z99.11 Impaired f asting glycemia 647306098 R73.01 Dyspnea 533839836 R06.00 ? d/t deconditio theresa/obesi ty - but does water aerobics and cuts his lawn - ? d/t chf - check bnp and cxr c cc: card he does have pending echo for next wk cont low salt diet [id number] Lio Langley MD Main Office [address] [address] 03/30/2020 09:48:13 03/30/2020 11:12:09 Adult health examination 482361522 Z00.00 Atrial fibrillation 4943 6004 I48.91 continue meds, cont f/u c card - see below Osteoarthr itis of right knee joint 9662842196 89635 M17.11 cont f/u c ortho prn, rec trial of turmeric Hypothyroidism 60101317 E03.9 stable, cont supp as dir Hyperlipidemia 26931238 E78.5 stable, cont statin Body mass index 40+ - severely obese 286165362 E66.01 Z68.41 Gastroesop hageal reflux disease 061165437 K21.9 stable, cont ppi as dir - but consider change to pepcid 1-2x/day Dependence on continuous positive airway pressure ventilation 600063419 Z99.11 Impaired f asting glycemia 746216735 R73.01 Essential hypertension 71532000 I10 stable, cont med as dir Gout 60829858 M10.9 Hepatitis C screening 41 8655247 Z11.59 Edema of l ower extremity 076066221 R60.0 cont elevate, wear comp socks [id number] Lio Langley MD Main Office [address] [address] [place] [address] 09/23/2021 08:51:22 09/23/2021 10:14:01 Essential hypertension 16605132 I10 stable, cont med as dir Hyperlipidemia 58110815 E78.5 Atrial fibrillation 4943 6004 I48.91 continue meds, cont f/u c card Hypothyroidism 84116735 E03.9 stable, cont supp as dir Impaired f asting glycemia 754535393 R73.01 Gout 57894430 M10.9 Numbness of foot 5078847 00 R20.0 no h/o dm or sciatica - will get cyber security administrator eval [id number] Lio Langley MD Main Office [address] [place] [address] 12/01/2021 09:18:32 12/01/2021 10:40:22 Adult health examination 924067724 Z00.00 will get fpi eval Screening for malignant neoplasm of colon 418588353 Z12.11 Gastroesop hageal reflux disease 916191941 K21.9 stable, cont ppi as dir (ac bkft) - but consider adding pepcid 1-2x/day - call if no sig improvemen t Feeling of lump in throat 464978512 F45.8 see above Atrial fibrillation 4943 6004 I48.91 continue meds, cont f/u c card Essential hypertension 91577249 I10 stable, cont med as dir Hypothyroidism 77365772 E03.9 stable, cont supp as dir Numbness of foot 0232713 00 R20.0 no h/o dm or sciatica - will get cyber security administrator eval cont to f/u c pod - encouraged pt to have pod send over recent note Body mass index 40+ - severely obese 696949265 E66.01 Z68.41 Varicella vaccination 68 780511 Z23 Osteoarthr itis of right knee joint 1948038416 74920 M17.11 cont f/u c ortho prn, rec trial of turmeric - pt has declined TKR in past, filled out handicap placard Prediabetes 244006601 R7 3.03 [id number] Lio Langley MD Main Office [address] [place] [address] 06/01/2022 09:11:13 06/01/2022 10:26:28 Gastroesophageal reflux disease 436484226 K21.9 stable, cont ppi as dir (ac bkft) - but consider adding pepcid 1-2x/day - call if no sig improvemen t fol by gi - just had barium swallow - normal as per pt, pending colon, no need for egd Essential hypertension 54009021 I10 stable, cont med as dir, cont f/u c card Atrial fibrillation 4943 6004 I48.91 stable, continue meds, cont f/u c card Hyperlipidemia 05153451 E78.5 stable lipids, cont statin as dir Hypothyroidism 79696230 E03.9 stable, cont supp as dir Prediabetes 689010172 R7 3.03 last A1c 5.7, recheck - but advised pt that the threshold for DM is higher d/t age > 80y.o. [id number] Lio Langley MD Main Office [address] [place] [address] 01/04/2023 12:59:45 01/04/2023 14:44:22 Adult health examination 690818414 Z00.00 pt declines fpi eval Venous sta sis ulcer with edema of left lower leg 5193406676 6810019 L97.929 has had x past month - will get wound care eval - meanwhile, stop peroxide - cont cleanse c soap/water , bacitracin /telfa/kli ng qd Constipation 88449682 K5 9.00 fol by gi - had colon 5.23 - no report to review, will attempt to getrec colace 1-2 tabs / day Atrial fibrillation 4943 6004 I48.91 stable, continue meds, cont f/u c card Essential hypertension 92060079 I10 stable, cont med as dir, cont f/u c card Hyperlipidemia 83831479 E78.5 stable lipids, cont statin as dir Hypothyroidism 76390258 E03.9 stable, cont supp as dir Prediabetes 683351057 R7 3.03 last A1c 5.7, recheck - but advised pt that the threshold for DM is higher d/t age > 80y.o. Nocturia 985437727 R35.1 Idiopathic peripheral neuropathy 96600459 G60.9 cont f/u c cyber security administrator q 4 months Body mass index 40+ - severely obese 714251910 E66.01 Z68.41 [id number] Lio Langley MD Main Office [address] [facility] [address] [place] [address] 01/10/2024 10:14:37 01/10/2024 11:30:51 Adult health examination 778867883 Z00.00 will attempt to get last colon from [facility] - last yrpt declines fpi eval Constipation 12771889 K5 9.00 fol by gi - had colon 5.23 - no report to review, will attempt to getrec colace 1-2 tabs / day Atrial fibrillation 4943 6004 I48.91 stable, continue meds, cont f/u c card Essential hypertension 73303650 I10 stable, cont med as dir, cont f/u c card Hyperlipidemia 12961471 E78.5 stable lipids, cont statin as dir Hypothyroidism 81602378 E03.9 stable, cont supp as dir Prediabetes 581008536 R7 3.03 last A1c 5.7, recheck - but advised pt that the threshold for DM is higher d/t age > 80y.o. 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 11.24 - a1c down to 5.6 Cervical radiculopathy 98683549 M54.12 x few months - radiates to L sh intermitte ntly = will check xray, consider pmr if worserec tyl atc, consider gbn if worserec hep Benign pro static hyperplasia 172740947 N40.0 stable - cont med as dir, cont f/u c uro History of calculus of kidney 918871700 Z87.442 better now, cont med as dir, cont f/u c uro Hypothyroidism 99454941 E03.9 stable, cont supp as dir Obstructiv e sleep apnea syndrome 80795118 G47.33 stable, cont cpap as dir Atrial fibrillation 4943 6004 I48.91 stable, continue meds, cont f/u c card [id number] Lio Langley MD Main Office [address] [place] [address] 11/13/2024 13:41:25 11/13/2024 15:11:42 Essential hypertension 09856096 I10 stable, cont med as dir, cont f/u c card Hypothyroidism 81893037 E03.9 stable, cont supp as dir Cervical radiculopathy 77575724 M54.12 x few months - radiates to [...] us know of a physiatris t in [place] who takes your insurance and is available to take you as a new patient).s xs sig better / resolved lately Prediabetes 932903103 R7 3.03 last A1c 5.7, recheck - but advised pt that the threshold for DM is higher d/t age > 80y.o. 11.24 - a1c down to 5.6 6.25 - recheck Otalgia of right ear 547 7329741 H92.01 ? d/t eustachian tube dysfxn and/or cerumen impaction - see below - if no better, then increase ns spray and use warm compress neck prn Atrial fibrillation 4943 6004 I48.91 stable, continue meds, cont f/u c card Hyperlipidemia 51170843 E78.5 stable lipids, cont statin as dir, cc: lipids to card Fatigue 22689602 R53.83 Impacted c erumen of bilateral ears 7547288498 301919 H61.23 Health Concerns Section Related Observation LastModified by Organization Detai ls LastModified Time None Recorded Concern Status LastModified by Organization Details LastModified Time None Recorded Advance Directives Directive Y: Payers Insurance Date Sequence Insurance Name Policy Number Policy Mcdaniel Covered Member ID Mcdaniel Member ID Guarantor Name 11/22/2024 2 COUNT INCLUDES THE [facility] [employer] [facility] [id number] Lily Sun [id number] Brayan 11/13/2024 1 [place]ICARE [place] [facility] [employer] Shayy Sun [id number] Brayan Sun Notes Date Note Type Note Provider Name and Address Organization Details Recorded Time 06/01/2022 text/html Hypertension F/UReported bypatient.Associate d Symptoms:no dizziness; no lightheadedness; no chest pain; no shortness of breath; no palpitations; no edema; no calf pain with exertion Lifestyle:limiting/ avoiding salt;not exercising regularly Medications:taking medications as directed; no side effects from medication Marcello Gonsalves PA-C [address], [address], [facility] 06/01/2022 10:25:06 01/04/2023 text/html Medicare Annual Wellness [...] no fire arms Marcello Gonsalves PA-C [address], [address], [facility] 01/08/2023 13:17:10 01/10/2024 text/html Medicare Annual Wellness [...] no fire arms Marcello Gonsalves PA-C [address], [address], [facility] 01/10/2024 11:33:58 04/30/2024 text/html Hypertension F/UReported bypatient.Associate d Symptoms:no dizziness; no lightheadedness; no chest pain; no shortness of breath; no palpitations; no edema; no calf pain with exertion Lifestyle:regular exercise; limiting/avoiding salt Medications:taking medications as directed; no side effects from medication Marcello Gonsalves PA-C [address], [address], [facility] 04/30/2024 09:41:14 11/13/2024 text/html Hypertension F/UReported bypatient.Associate d Symptoms:no dizziness; no lightheadedness; no chest pain; no shortness of breath; no palpitations; no edema; no calf pain with exertion Lifestyle:regular exercise; limiting/avoiding salt Medications:taking medications as directed; no side effects from medication Marcello Gonsalves PA-C [address], [address], [facility] 11/13/2024 14:48:17
[2024-12-19 12:54] LABS: Appearance Urine Clear; Glucose Urine UA Negative (Negative); PH 6.5 (5.0-9.0); Specific Gravity - Urine 1.015 (1.005-1.025); UMIC TRIGGER UA YES
[2024-12-19 13:22] LABS: Prostate Specific Antigen 0.37 ng/mL (<0.05-4.0)
== END 2024-12-19 12:09 | disposition home or self-care (01) ==
LOC: HO.LAB 12:08
PROVIDERS: PCP Physician Assistant Medical; Visit Provider Urology
DX: N40.1 Benign prostatic hyperplasia with lower urinary tract symptoms (principal); Z12.5 Encounter for screening for malignant neoplasm of prostate; R31.9 Hematuria, unspecified
CPT/HCPCS: 36415; 81001; 84153

== ENCOUNTER 2025-01-08 07:17 | Outpatient (AMB) | payer MEDICARE, OTHER, SELFPAY ==
--- NOTE | 2025-01-08 07:17 | MHC.OFFVIS ---
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 LV--12/16/24-- Plan schedule office cystoscopy. 12/16/2024--Brayan is followed for nephrolithiasis and BPH, on flomax, 84-year-old question PSA no recent on chart, Ultrasound 11/19/2024 multiple bilateral renal cysts-right kidney 11 mm kidney stone lower pole, left kidney 3 stones identified approximately 7 mm each, 1 in the midpole 2 in the lower pole History of Present Illness - The patient is an 84-year-old male presenting with kidney stones and benign prostatic hyperplasia. - The patient reports no pain or awareness of the stones. - Hematuria: The patient reports nocturnal episodes of pinkish urine, suggestive of blood, occurring between 1 and 3 times a night. - The patient has been advised to provide a urine sample for further evaluation. - Benign prostatic hyperplasia: The patient experiences nocturia and variable urinary flow, sometimes feeling the urge to urgency - Discussed further evaluation with office cystoscopy may be indicated pending urine results - No recent PSA, will check a PSA Results - Ultrasound (11/19/24): Multiple bilateral renal cysts, 11 mm stone in the right kidney, and three small stones in the left kidney. 02/15/24--Brayan is followed for nephrolithiasis and BPH, and had left flank pain with left hydronephrosis due to an obstructing ureteral stone. The patient states he currently has no pain. I reviewed CTAP 02/14/24 --bilateral renal stones, left hydro resolved. Plan continue to monitor kidneys. Cont flomax. FU in 9 months. 01/18/24--Brayan is being evaluated for kidney stones. Follow-up ultrasound notes persistent left hydronephrosis there are bilateral ureteral jets noted. He is currently asymptomatic. The patient would prefer to pass the stone and not have surgery. It is unclear if passed the stone and has hydro from edema or if the stone is still there. I have discussed that if the stone has remained in the same spot in the ureter that I recommend ureteroscopy. I will check an urgent CT stone protocol. 12/22/23--Brayan was in the emergency room due to left flank pain. Comorbidity-anticoagulation on Eliquis CT imaging bilateral kidney stones left hydronephrosis due to obstructing left ureteral stone mid ureter 6 mm. Also bladder wall thickening with diverticuli The patient was sent from the emergency room with antibiotics, Flomax, prednisone On exam no CVA tenderness elicited. Follow-up renal/bladder ultrasound. Continue tamsulosin due to enlarged prostate PFSH Social History Alcohol intake: current Review of Systems Const All systems reviewed & are unremarkable except as noted in HPI and below Reports no additional complaints Eyes Reports no additional complaints ENT Reports no additional complaints Card Reports no additional complaints Resp Reports no additional complaints GI Reports no additional complaints Reports as per HPI Musc Reports no additional complaints Skin/Breast Reports system reviewed and no additional complaints, except as documented Neuro Reports no additional complaints Psych Reports no additional complaints Endo Reports no additional complaints Anoop/Lymph Reports no additional complaints Aller/Immun Reports no additional complaints Telehealth Telehealth Telehealth Platform: [facility] Location of provider rendering services: practice address Location of patient: address on file Patient Identification confirmed using: Name, : Yes Telehealth method: voice only Patient verbally consented to treatment: Yes Patient verbally consented to billing insurance company: Yes Patient informed of any privacy concerns related to visit: Yes Minutes spent on Phone/Video with Pt.: 13 Assessment & Plan Assessment & Plan (1) Hematuria: Code(s): R31.9 - Hematuria, unspecified Category: Medical (2) Bilateral kidney stones: Code(s): N20.0 - Calculus of kidney Category: Medical (3) BPH loc w urin obs/LUTS: Code(s): N40.1 - Benign prostatic hyperplasia with lower urinary tract symptoms Category: Medical Plan Fu office cysto Patient Instructions: The patient had an opportunity to ask questions regarding treatment plan. The patient expressed understanding and agreement with the above treatment plan. The patient is aware they should contact our office by phone for worsening of their current condition or the appearance of new symptoms. Compliance is encouraged with any medications and followup testing that is ordered. It is a privilege to be allowed the opportunity to participate in the urologic care of your patient. If you have any questions or concerns regarding treatment for the above conditions please do not hesitate to contact me. The office telephone contact is [phone]. This note is constructed in part using voice recognition software. While every effort has been made to ensure accuracy fitting supervisor errors may have been included. Yours sincerely, Katina Arteaag MD Coding Level of Care Code Tele Est Pt Level 3 (87330) Diagnoses Hematuria R31.9 Bilateral kidney stones N20.0 BPH loc w urin obs/LUTS N40.1
--- OUTSIDE RECORDS SUMMARY | 2025-01-08 07:19 | XMS_ITS | Patient Health Record ---
Author Organization [facility] Address [facility] [facility] [address] [place] [address] Care Team Providers Care Stage Electrician Helper Name Role Phone Rodolfo Rodgers Unavailable [phone] Rodolfo Rodgers MD Unavailable Unavailable Reason For Referral No Information Plan Of Treatment No Information Insurance Providers Payer Name Payer Address Payer Phone Subscriber Number Group Number Insured Name Patient Relationship to Insured Coverage Start Date Coverage End Date MEDICARE PART B [address] [address] [place], [place] [id number] Dino , Brayan Self - patient is the insured [facility] [address] [place], [place] [id number] [phone] [id number] Dino , Brayan Self - patient is the insured
--- OUTSIDE RECORDS SUMMARY | 2025-01-08 07:19 | XMS_ITS | Patient Health Record ---
Author Organization [facility] Address [address] [place] [address] Care Team Providers Care Quarry Supervisor Name Role Phone Shaggy Carmona PA-C Primary Care Provider Ashly Tovar Unavailable [phone] Jesus Joseph Unavailable [phone] Allergies No Known Allergies Reason For Referral [...] Polyneuropathy due to type 2 diabetes mellitus (183358467) Type 2 diabetes mellitus with diabetic polyneuropathy (E11.42) Active confirmed Problem Unspecified atherosclerosis of [place] arteries of extremities, bilateral legs (I70.203) Active confirmed Problem Acquired hammer toe of right foot (8580885607284574 ) Other hammer toe(s) (acquired), right foot (M20.41) Active confirmed Problem Acquired hammer toe of left foot (6457319545369919 ) Other hammer toe(s) (acquired), left foot (M20.42) Active confirmed Vital Signs Blood pressure diastolic 60 mm Hg 10/16/2024 Height 6ft 1in in 10/16/2024 Blood pressure systolic 120 mm Hg 10/16/2024 Weight 285 lbs 10/16/2024 BMI 37.6 kg/m2 10/16/2024 Procedures Procedure Date Ordered Date Performed Result Body Sit e 70280-OYVRRED NAIL, 6 OR MORE 06/04/2024 N/A 04790-LZLN SKIN LESIONS, OVER 4 06/04/2024 N/A 45617-RRXZNZH NAIL, 6 OR MORE 10/16/2024 N/A 36624-VTIX SKIN LESIONS, OVER 4 10/16/2024 N/A Encounters Encounter Location Date Provider Diagnosis [address] [address] 03/06/2024 Jesus Joseph Tinea unguium B35.1 ; Pain in right toe(s) M79.674 ; Pain in left toe(s) M79.675 ; Other hammer toe(s) (acquired), left foot M20.42 ; Other hammer toe(s) (acquired), right foot M20.41 ; Unspecified atherosclerosis of [place] arteries of extremities, bilateral legs I70.203 and Xerosis cutis L85.3 [facility] [address] [address] 06/04/2024 Ashly Ríos Type 2 diabetes mellitus with diabetic polyneuropathy E11.42 ; Tinea unguium B35.1 and Unspecified atherosclerosis of [place] arteries of extremities, bilateral legs I70.[address] [address] 10/16/2024 Ashly Ríos Type 2 diabetes mellitus with diabetic polyneuropathy E11.42 ; Tinea unguium B35.1 and Unspecified atherosclerosis of [place] arteries of extremities, bilateral legs I70.203 Assessments [...] (ICD-10 - B35.1) 10/16/2024 Unspecified atherosclerosis of [place] arteries of extremities, bilateral legs (ICD-10 - I70.203) 06/04/2024 Unspecified atherosclerosis of [place] arteries of extremities, bilateral legs (ICD-10 - I70.203) 03/06/2024 Pain in left toe(s) (ICD-10 - M79.675) 03/06/2024 Other hammer toe(s) (acquired), left foot (ICD-10 - M20.42) 03/06/2024 Other hammer toe(s) (acquired), right foot (ICD-10 - M20.41) 03/06/2024 Unspecified atherosclerosis of [place] arteries of extremities, bilateral legs (ICD-10 - I70.203) 03/06/2024 Xerosis cutis (ICD-10 - L85.3) Plan Of Treatment Pending Test Test Name Order Date 01779-MKIHMBG NAIL, 6 OR MORE 06/04/2024 04312-XJZINZA NAIL, 6 OR MORE 10/16/2024 36976-HFDM SKIN LESIONS, OVER 4 10/17/19 25 89668-WZVO SKIN LESIONS, OVER 4 06/04/20 41338-YKIL SKIN LESIONS, OVER 4 11/17/19 56021-MFBA SKIN LESIONS, OVER 4 02/09/20 16573-YGPGPQUI OF HEMATOMA/FLUID 022 Next Appt Details Provider Name:Ashly gilliam, 01/15/2025 02:30:00 PM, [address] [facility], [place], [address], Insurance Providers Payer Name Payer Address Payer Phone Subscriber Number Group Number Insured Name Patient Relationship to Insured Coverage Start Date Coverage End Date Medicare National [employer] [address] [facility] [address] [phone] [id number] Brayan Sun Self - patient is the insured [employer] [address] [place] [address] [id number] Brayan Sun Self - patient is the insured Medical (General) History Medical History History ICD Code Back,Hip,and Knee pain Broken bones CAD (Cholesterol) Cataracts Heart disease Numbness Reflux ( GERD) thyroid A fib CPAP hyperlipidemia Kidney stones Surgical History Surgery Date(Month/Year) foot surgery, right 08/11/2007 colonoscopy 02/27/2012 Hospitalization History Reason Date(Month/[place] [facility]
--- OUTSIDE RECORDS SUMMARY | 2025-01-08 07:19 | XMS_ITS | Clinical Summary ---
Author Organization [facility] [employer] Address [address] [place] [address] Phone Care Team Providers Care Health Care Consultant Name Role Phone Shaggy Carmona Primary Care Provider + [phone] Allergies No known active allergies Medications apixaban (Eliquis) 5 mg tablet Take 1 tablet (5 mg total) by mouth 2 (two) times a day. 04/10/2024 Active dilTIAZem CD (CARDIZEM CD) 180 mg 24 hr capsule Take 1 capsule (180 mg total) by mouth 1 (one) time each day. 02/22/2024 Active atorvastatin (LIPITOR) 10 mg tablet Take 1 tablet (10 mg total) by mouth at bedtime. Active levothyroxine (SYNTHROID, LEVOTHROID) 75 mcg tablet Take 1 tablet (75 mcg total) by mouth 1 (one) time each day before breakfast. Active omeprazole (PriLOSEC) [address] capsule Take 1 capsule (20 mg total) by mouth 1 (one) time each day. Active Active Problems Problem Noted Date Diagnosed Date Aortic dilatation (CMS/HCC V24) 05/17/2021 Assessment & Plan (11/25/2024 9:14 [...] therapies including diltiazem and hydrochlorothiazide. Atrial fibrillation (CMS/HCC V24, CMS/HCC V28) 0 11/10/2020 Overview (11/25/2024): [...] Description 11/25/2024 8:40 AM EDT Office Visit [facility] - [address] [place] [address] Violeta Pascual NP Longstanding persistent atrial fibrillation (CMS/HCC V24, CMS/HCC V28) (Primary Dx); Aortic dilatation (CMS/HCC V24); Essential hypertension; Mixed hyperlipidemia 11/22/2024 12:30 PM EDT Ancillary Procedure [facility] [address] [place] [address] Longstanding persistent atrial fibrillation (CMS/HCC V24, CMS/HCC V28); Essential hypertension; Aortic dilatation ([facility] V24); Aneurysm of ascending aorta without rupture ([facility] V24) from Last 3 Months Surgical History [...] ventilation Body mass index 40.0-44.9, a dult ([facility] V24, [facility] V28) DX:Body mass index 40.0-44. 9, adult ([facility]); COMMENT: Severely obese Family History Medical History [...] Description 05/27/2025 10:00 AM EST Ancillary Procedure [facility] - [address] [place] [address] [place] [address] Health Maintenance Due Date Last Done Comments Diabetes: Annual GFR (Glomerular Filtration Rate) 1942 Diabetes: Annual Foot Exam 02/15/1952 Diabetes: Annual Retina Eye Exam 02/15/1952 RSV Immunization Adult Patients (1 - 1-dose 75+ series) 2017 Zoster Vaccines (2 of 3) 05/15/2019 03/20/2019 Cholesterol Screening (Lipid Panel) 05/21/2022 Falls Risk Assessment 05/21/2022 Social Influencers of Health Screening 05/21/2022 Hypertension/CHF/CAD Annual BMP Blood Test 05/22/2022 Medicare Annual Wellness Visit 01/05/2024 01/04/2023 Depression Screening 06/12/2024 COVID-19 Vaccine ( season) 2024 04/04/2024, 03/02/2023, [...] ms GEMUSE QTc 494 ms GEMUSE R [place] -61 degrees GEMUSE T [place] 70 degrees GEMUSE ECG Interpretation Atrial fibrillation Right bundle branch block Left anterior fascicular block Abnormal ECG No previous ECGs available Confirmed by FRANK MCDOWELL ([id number]) on 11/25/2024 10:54:27 AM GEMUSE 11/25/2024 8:47 AM EDT 11/25/2024 10:54 AM EDT us Violeta Pascual NP ECG ORDERABLES Edited Resul t - Final GEMUSE * (ABNORMAL) TRANSTHORACIC ECHOCARDIOGRAM (TTE) COMPLETE (11/22/2024 1:03 PM EDT) Left Atrium Minor [place] 7.4 cm CV PACS Left Atrium Major [place] 7.5 cm CV PACS LA Area Sys [...] Volume 57 mL CV PACS MV Deceleration [place] 7.4 m/s2 CV PACS E Wave Deceleration [...] S' 8 cm/s CV PACS RA Major [place] 6.7 cm CV PACS RA Major [place] Index 2.6 2.1 - 2.7 cm/m2 CV [...] study quality was technically difficult. us Violeta Pascual NP CV ECHO PROCEDURES Final Res ult * External clinical lab (11/15/2024 1:37 PM EDT) us Shaggy Carmona MD LAB BLOOD ORDERABLES Final Res ult from Last 3 Months Insurance MEDICARE [employer] Advance Directives Documents on File Type Date Recorded Patient Resident Care Spec Expl anation Health Care Decision (hx) 11/09/2021 [...] (hx) 11/09/2021 AD WHEELER DIRECTIVE Care Teams Health Care Consultant Relationship Specialty Start Date End Date Shaggy Carmona PA [address] [address] PCP - General Internal Medicine 01/11/22
== END 2025-01-08 08:41 | disposition home or self-care (01) ==
LOC: HO.HUSH 07:17
PROVIDERS: PCP Physician Assistant Medical; Visit Provider Urology
DX: R31.9 Hematuria, unspecified (principal); N20.0 Calculus of kidney; N40.1 Benign prostatic hyperplasia with lower urinary tract symptoms
CPT/HCPCS: 99213